=== PATIENT | female | born 1970 | race Caucasian/White ===

== ENCOUNTER → 2021-12-25 | Outpatient (CLI) | payer OTHER ==
--- NOTE | 2021-12-25 12:04 | USB ---
Reason for Exam: Additional evaluation requested from abnormal screening. Last screening mammogram was performed less than 1 month ago. Patient History: Menarche at age 14. First Full-Term at age 32. Late child-bearing (after 32). Left ovary removed at age 34. Patient has history of breast feeding. Hormonal Contraceptives for 1 year from age 22 until age 23. Risk Values: Lala 5 year model risk: 1.3%. NCI Lifetime model risk: 12.3%. Film Views: 3D and 2D Synthesized Right spot compression CC views were taken. 3D and 2D Synthesized Right LM views were taken. 3D and 2D Synthesized Right CCRM views were taken. Prior Study Comparison: 07/02/2017 Bilateral Screening Mammogram, [facility]. 12/17/2021 Bilateral MG screening mammo w CAD, [facility]. Tissue Density: Right: There are scattered fibroglandular densities. Findings: Analyzed By CAD. Mammogram Subtle isodense clustered nodularity approximately 3:00 position persists on additional views. Aggregate dimension of 9 mm. Technique: Method: Targeted. Findings: The upper inner quadrant of the left breast, the axilla of the left breast and the retroareolar of the left breast were scanned. Finding 1: Clustered microcysts. Laterality: Right. Size 12 x 4 x 7 mm. 3 O'clock Quadrant: Upper inner. Depth: Middle. Targeted scanning right breast at the 2-3 o'clock position. There is a cyst cluster measuring up to 1.2 x 0.7 x 0.4 cm at the 3:00 position, 4 cm from the nipple, likely mammographic correlate. No other solid or cystic lesion is seen. Short interval follow-up mammogram recommended. Overall Assessment: Probably benign, BI-RAD 3 Assessment: MG 3D work up w/cad RT - Right: Probably benign, BI-RAD 3. US breast workup limited RT - Right: Probably benign, BI-RAD 3. Management: Diagnostic Mammogram of the right breast in 6 months. 1. A clinical breast exam by your physician is recommended on an annual basis and results should be correlated with mammographic findings. Also, patient should continue monthly self breast exams. 2. This exam should not preclude additional follow-up of suspicious palpable abnormalities. Results were given to the patient verbally at the time of exam. Electronically signed and approved by: Ran Hannon M.D. Radiologist
== END | disposition home or self-care (01) ==
LOC: RADMAMWWP 10:13
PROVIDERS: ATTEND Obstetrics & Gynecology
DX: R92.8 Other abnormal and inconclusive findings on diagnostic imaging of breast (principal)
CPT/HCPCS: 77061; 77065

== ENCOUNTER → 2023-12-25 | Outpatient (CLI) | payer OTHER ==
--- NOTE | 2023-12-25 20:26 | MM ---
Reason for Exam: Screening (asymptomatic). Last mammogram was performed 2 year(s) and 0 month(s) ago. Patient History: Menarche at age 14. First Full-Term at age 32. Late child-bearing (after 32). Left ovary removed at age 34. Patient has history of breast feeding. Hormonal Contraceptives for 1 year from age 22 until age 23. Risk Values: Lala 5 year model risk: 1.4%. NCI Lifetime model risk: 12.0%. Prior Study Comparison: 07/02/2017 Bilateral Screening Mammogram, [facility]. 12/17/2021 Bilateral MG screening mammo w CAD, [facility]. 12/25/2021 Right MG 3D work up w/cad RT, [facility]. Tissue Density: There are scattered areas of fibroglandular density. Findings: Analyzed By CAD. There is no suspicious group of microcalcifications or new suspicious mass in either breast. Overall Assessment: Negative, BI-RAD 1 Management: Screening Mammogram of both breasts in 1 year. . Patient should continue monthly self-breast exams. A clinical breast exam by your physician is recommended on an annual basis. This exam should not preclude additional follow-up of suspicious palpable abnormalities. Note on Lala scores and lifetime risk: 1. A Lala score greater than 3% is considered moderate risk. If this is the case, consider specialist referral to assess eligibility for a risk reducing agent. 2. If overall lifetime risk for the development of breast cancer is 20% or higher, the patient may qualify for future screening with alternating mammogram and breast MRI. Electronically signed and approved by: Ran Hannon M.D. Radiologist
== END | disposition home or self-care (01) ==
LOC: RADMAMWWP 09:24
PROVIDERS: ATTEND Internal Medicine
DX: Z12.31 Encounter for screening mammogram for malignant neoplasm of breast (principal)
CPT/HCPCS: 77063; 77067

== ENCOUNTER → 2024-06-18 | Outpatient (CLI) | payer OTHER ==
--- NOTE | 2024-06-18 11:10 | XR ---
EXAMINATION TYPE: XR chest 2V DATE OF EXAM: 06/18/2024 10:46 AM COMPARISON: None CLINICAL INDICATION: Female, 54 years old with history of R05.9Cough R50.9 Fever; [facility] TECHNIQUE: XR chest 2V Frontal and lateral views of the chest. FINDINGS: Lungs/Pleura: Airspace opacities project over the left perihilar region/lower left lung. There is no evidence of pleural effusion, focal consolidation, or pneumothorax. Pulmonary vascularity: Unremarkable. Heart/mediastinum: Cardiomediastinal silhouette is unremarkable. Musculoskeletal: No acute osseous pathology. Other findings: None Lines/Tubes: IMPRESSION: Left lower lobe pneumonia. [facility], , 06/18/2024 11:07 AM
== END | disposition home or self-care (01) ==
LOC: RADXRMAIN 10:35
PROVIDERS: ATTEND Internal Medicine
DX: J18.9 Pneumonia, unspecified organism (principal); R05.9 Cough, unspecified; R50.9 Fever, unspecified
CPT/HCPCS: 71046

== ENCOUNTER 2024-06-20 15:19 | Inpatient (IN) | payer OTHER ==
[2024-06-20] MEDS ORDERED: PNEUMONIA PROTOCOL UTILIZED 1 EACH MISC PO PRN (16:17)
[2024-06-20] MEDS: IPRATROPIUM-ALBUTEROL 3 ML NEB INHALATION STA (16:56)
[2024-06-20 17:06] LABS: Basophils % (A) 0 %; Eosinophils % (A) 0 %; HCT 37.9 % (34.0-46.0); HGB 12.7 gm/dL (11.4-16.0); Lymphocytes # (A) 0.6 k/uL (1.0-4.8); Lymphocytes % (A) 12 %; MCH 30.9 pg (25.0-35.0); MCHC 33.5 g/dL (31.0-37.0); MCV 92.1 fL (80.0-100.0); Mean Platelet Volume 7.5; Monocytes # (A) 0.3 k/uL (0-1.0); Monocytes % (A) 6 %; Neutrophils % (A) 80 %; Platelet Count 185 k/uL (150-450); RBC 4.12 m/uL (3.80-5.40); RDW 12.3 % (11.5-15.5)
--- NOTE | 2024-06-20 17:07 | ED ---
SOB HPI - General Chief Complaint: Shortness of Breath Stated Complaint: Fever,Cough,Weakness Time Seen by Provider: 06/20/24 16:00 Source: patient Mode of arrival: ambulatory Limitations: no limitations - History of Present Illness Initial Comments: 54-year-old female presents to the emergency department with shortness of breath. Patient states for the past 10 days she has been weak, coughing with a fever. She did see her primary care doctor on . Chest x-ray was done. Patient was started on cefdinir. She has been taking the medications without any improvement. She denies history of asthma or COPD. She has not a smoker. She has been taking Robitussin without improvement in the cough. Denies chest pain. No history of cardiac disease. Taking Tylenol for the fevers. No use of any inhalers. No abdominal pain, no nausea, vomiting or diarrhea. No other alleviating, further pertain or modifying factors - Related Data Home Medications Medication Instructions Recorded Confirmed guaiFENesin SYRUP 100MG/5ML 200 mg PO Q6H PRN 06/20/24 06/20/24 [Robitussin] Allergies Allergy/AdvReac Type Severity Reaction Status Date / Time No Known Allergies Allergy Verified 06/20/24 17:27 Review of Systems ROS Statement: Those systems with pertinent positive or pertinent negative responses have been documented in the HPI. ROS Other: All systems not noted in ROS Statement are negative. Past Medical History Past Medical History: No Reported History History of Any Multi-Drug Resistant Organisms: None Reported Past Surgical History: Section Past Psychological History: No Psychological Hx Reported Smoking Status: Never smoker Past Alcohol Use History: None Reported Past Drug Use History: None Reported - Past Family History Mother Family Medical History: Deep Vein Thrombosis (DVT) General Exam Limitations: no limitations General appearance: alert, in no apparent distress Head exam: Present: atraumatic, normocephalic, normal inspection Eye exam: Present: normal appearance, PERRL, EOMI. Absent: scleral icterus, conjunctival injection, periorbital swelling ENT exam: Present: normal exam, mucous membranes moist Neck exam: Present: normal inspection. Absent: tenderness, meningismus, lymphadenopathy Respiratory exam: Present: wheezes. Absent: respiratory distress, rales, rhonchi, stridor Cardiovascular Exam: Present: normal rhythm, tachycardia, normal heart sounds. Absent: systolic murmur, diastolic murmur, rubs, gallop, clicks GI/Abdominal exam: Present: soft, normal bowel sounds. Absent: distended, tenderness, guarding, rebound, rigid Extremities exam: Present: normal inspection, full ROM, normal capillary refill. Absent: tenderness, pedal edema, joint swelling, calf tenderness Back exam: Present: normal inspection Neurological exam: Present: alert, oriented X3, CN II-XII intact Psychiatric exam: Present: normal affect, normal mood Skin exam: Present: warm, dry, intact, normal color. Absent: rash Course Vital Signs 06/20/24 06/20/24 06/20/24 15:41 16:58 17:08 Temperature 98.7 F Pulse Rate 109 H 72 75 Respiratory 18 Rate Blood Pressure 93/66 O2 Sat by Pulse 88 L Oximetry 06/20/24 17:43 Temperature Pulse Rate 93 Respiratory 22 Rate Blood Pressure 99/71 O2 Sat by Pulse 95 Oximetry Medical Decision Making - Medical Decision Making Was pt. sent in by a medical professional or institution (, PA, PREVENTIVE MEDICINE OFFICER, urgent care, hospital, or fdc...) When possible be specific @ -No Did you speak to anyone other than the patient for history (EMS, parent, family, police, friend...)? What history was obtained from this source @ -Spoke with for history Did you review nursing and triage notes (agree or disagree)? Why? @ -I reviewed and agree with nursing and triage notes Were old charts reviewed (outside hosp., previous admission, EMS record, old EKG, old radiological studies, urgent care reports/EKG's, fdc records)? Report findings @ -I reviewed outpatient chest x-ray that was performed which demonstrated pneumonia Differential Diagnosis (chest pain, altered mental status, abdominal pain women, abdominal pain men, vaginal bleeding, weakness, fever, dyspnea, syncope, headache, dizziness, GI bleed, back pain, seizure, CVA, palpatations, mental health, musculoskeletal)? @ -Differential Dyspnea: Coronary syndrome, arrhythmia, tamponade, asthma, COPD, pulmonary embolism, pneumonia, pneumothorax, pulmonary effusion, anaphylaxis, diabetic ketoacidosis, flailed chest, pulmonary contusion, diaphragmatic rupture, anemia, neuromuscular, this is not meant to be an all-inclusive list. EKG interpreted by me (3pts min.). @ -Yes and demonstrates sinus rhythm with rate of 92. VT interval 122. QRS 86. QTc of 381. No acute ST segment elevations or depressions X-rays interpreted by me (1pt min.). @ -None done CT interpreted by me (1pt min.). @ -None done U/S interpreted by me (1pt. min.). @ -None done What testing was considered but not performed or refused? (CT, X-rays, U/S, labs)? Why? @ -Repeat chest imaging was considered however patient just had outpatient x- ray which demonstrated pneumonia What meds were considered but not given or refused? Why? @ -None Did you discuss the management of the patient with other professionals (professionals i.e. , PA, PREVENTIVE MEDICINE OFFICER, lab, RT, psych nurse, social sciences professor, propulsion generator repairer, teacher, air support control officer, case operator)? Give summary @ -Spoke with Dr. Nuñez who will admit the patient Was smoking cessation discussed for >3mins.? @ -No Was critical care preformed (if so, how long)? @ -Yes, 30 minutes for management of hypoxic respiratory failure with pneumonia Were there social determinants of health that impacted care today? How? (Homelessness, low income, unemployed, alcoholism, drug addiction, transportation, low edu. Level, literacy, decrease access to med. care, half-way, rehab)? @ -No Was there de-escalation of care discussed even if they declined (Discuss DNR or withdrawal of care, Hospice)? DNR status @ -No What co-morbidities impacted this encounter? (DM, HTN, Smoking, COPD, CAD, Cancer, CVA, ARF, Chemo, Hep., AIDS, mental health diagnosis, sleep apnea, morbid obesity)? @ -None Was patient admitted / discharged? Hospital course, mention meds given and route, prescriptions, significant lab abnormalities, going to OR and other pertinent info. @ -Upon arrival patient seen and evaluated in room 27. Thorough history and physical exam was performed. IV access was established. Laboratory studies were conducted. I did review outpatient x-ray which demonstrates pneumonia. Patient is initiated on intravenous antibiotics. Laboratory studies are conducted. I did call and speak with Dr. oRa. Patient will be admitted for hypoxic respiratory failure and pneumonia. Pulmonology will be consulted. Further imaging to be performed as warranted by inpatient team. Patient does not demonstrate any signs of respiratory distress. She was admitted to the hospital in stable condition Undiagnosed new problem with uncertain prognosis? @ -No Drug Therapy requiring intensive monitoring for toxicity (Heparin, Nitro, Insulin, Cardizem)? @ -No Were any procedures done? @ -No Diagnosis/symptom? @ -Acute cough, acute hypoxic respiratory failure, acute pneumonia Acute, or Chronic, or Acute on Chronic? @ -Acute Uncomplicated (without systemic symptoms) or Complicated (systemic symptoms)? @ -Complicated Side effects of treatment? @ -No Exacerbation, Progression, or Severe Exacerbation? @ -No Poses a threat to life or bodily function? How? (Chest pain, [place], [place], pneumonia, PE, COPD, DKA, ARF, appy, cholecystitis, CVA, Diverticulitis, Homicidal, Suicidal, threat to staff... and all critical care pts) @ -Yes as patient is hypoxic - Lab Data Result diagrams: 06/28/24 06:32 06/28/24 06:32 Lab Results 06/20/24 06/20/24 06/20/24 Range/Units 16:32 16:32 16:32 WBC 5.0 (3.8-10.6) k/uL RBC 4.12 (3.80-5.40) m/uL Hgb 12.7 (11.4-16.0) gm/dL Hct 37.9 (34.0-46.0) % MCV 92.1 (80.0-100.0) fL MCH 30.9 (25.0-35.0) pg MCHC 33.5 (31.0-37.0) g/dL RDW 12.3 (11.5-15.5) % Plt Count 185 (150-450) k/uL Estimated Plt Count (Adequate) MPV 7.5 Immature Gran % (Auto) % Absolute Nucleated RBC % Neutrophils % 80 % Lymphocytes % 12 % Monocytes % 6 % Eosinophils % 0 % Basophils % 0 % Immature Gran # (0.00-0.04) X 10*3/uL Neutrophils # 4.0 (1.3-7.7) k/uL Lymphocytes # 0.6 L (1.0-4.8) k/uL Monocytes # 0.3 (0-1.0) k/uL Eosinophils # 0.0 (0-0.7) k/uL Basophils # 0.0 (0-0.2) k/uL NRBC/100 WBC Diff (0.00-0.01) X 10*3/uL Manual Slide Review RBC Morphology (Normal) Hypochromasia PT (10.0-12.5) sec INR (<1.2) APTT (22.0-30.0) sec Sodium 139 (137-145) mmol/L Potassium 4.4 (3.5-5.1) mmol/L Chloride 103 (98-107) mmol/L Carbon Dioxide 28 (22-30) mmol/L Anion Gap 8 mmol/L BUN 16 (7-17) mg/dL Creatinine 0.77 (0.52-1.04) mg/dL Est GFR (CKD-EPI) (>=60) Est GFR (CKD-EPI)AfAm >90 (>60 ml/min/1.73 sqM) Est GFR (CKD-EPI)NonAf 89 (>60 ml/min/1.73 sqM) BUN/Creatinine Ratio (12.00-20.00) Ratio Glucose 106 H (74-99) mg/dL Plasma Lactic Acid Adryan 1.0 (0.7-2.0) mmol/L Calcium 8.7 (8.4-10.2) mg/dL Total Bilirubin 0.7 (0.2-1.3) mg/dL AST 74 H (14-36) U/L ALT 108 H (4-34) U/L Alkaline Phosphatase 171 H (38-126) U/L Total Protein 6.9 (6.3-8.2) g/dL Albumin 3.8 (3.5-5.0) g/dL Globulin g/dL Albumin/Globulin Ratio Procalcitonin (0.02-0.50) ng/mL Influenza Type A (PCR) (Not Detectd) Influenza Type B (PCR) (Not Detectd) Urine Legionella Ag (Negative) RSV (PCR) (Not Detectd) SARS-CoV-2 (PCR) (Not Detectd) 06/20/24 06/21/24 06/21/24 Range/Units 22:39 04:23 04:39 WBC 4.96 (3.8-10.6) k/uL RBC 3.66 L (3.80-5.40) m/uL Hgb 11.1 L (11.4-16.0) gm/dL Hct 34.7 L (34.0-46.0) % MCV 94.8 (80.0-100.0) fL MCH 30.3 (25.0-35.0) pg MCHC 32.0 (31.0-37.0) g/dL RDW 12.7 (11.5-15.5) % Plt Count 137 L (150-450) k/uL Estimated Plt Count Decreased (Adequate) MPV 10.5 Immature Gran % (Auto) 1.00 % Absolute Nucleated RBC 0 % Neutrophils % 76.4 % Lymphocytes % 12.1 % Monocytes % 9.1 % Eosinophils % 1.0 % Basophils % 0.4 % Immature Gran # 0.05 H (0.00-0.04) X 10*3/uL Neutrophils # 3.79 (1.3-7.7) k/uL Lymphocytes # 0.60 L (1.0-4.8) k/uL Monocytes # 0.45 (0-1.0) k/uL Eosinophils # 0.05 (0-0.7) k/uL Basophils # 0.02 (0-0.2) k/uL NRBC/100 WBC Diff 0 (0.00-0.01) X 10*3/uL Manual Slide Review Morph Only RBC Morphology Normal (Normal) Hypochromasia PT (10.0-12.5) sec INR (<1.2) APTT (22.0-30.0) sec Sodium (137-145) mmol/L Potassium (3.5-5.1) mmol/L Chloride (98-107) mmol/L Carbon Dioxide (22-30) mmol/L Anion Gap mmol/L BUN (7-17) mg/dL Creatinine (0.52-1.04) mg/dL Est GFR (CKD-EPI) (>=60) Est GFR (CKD-EPI)AfAm (>60 ml/min/1.73 sqM) Est GFR (CKD-EPI)NonAf (>60 ml/min/1.73 sqM) BUN/Creatinine Ratio (12.00-20.00) Ratio Glucose (74-99) mg/dL Plasma Lactic Acid Adryan (0.7-2.0) mmol/L Calcium (8.4-10.2) mg/dL Total Bilirubin (0.2-1.3) mg/dL AST (14-36) U/L ALT (4-34) U/L Alkaline Phosphatase (38-126) U/L Total Protein (6.3-8.2) g/dL Albumin (3.5-5.0) g/dL Globulin g/dL Albumin/Globulin Ratio Procalcitonin (0.02-0.50) ng/mL Influenza Type A (PCR) Not Detected (Not Detectd) Influenza Type B (PCR) Not Detected (Not Detectd) Urine Legionella Ag Negative (Negative) RSV (PCR) Not Detected (Not Detectd) SARS-CoV-2 (PCR) Not Detected (Not Detectd) 06/21/24 06/21/24 06/21/24 Range/Units 04:39 04:39 09:52 WBC (3.8-10.6) k/uL RBC (3.80-5.40) m/uL Hgb (11.4-16.0) gm/dL Hct (34.0-46.0) % MCV (80.0-100.0) fL MCH (25.0-35.0) pg MCHC (31.0-37.0) g/dL RDW (11.5-15.5) % Plt Count (150-450) k/uL Estimated Plt Count (Adequate) MPV Immature Gran % (Auto) % Absolute Nucleated RBC % Neutrophils % % Lymphocytes % % Monocytes % % Eosinophils % % Basophils % % Immature Gran # (0.00-0.04) X 10*3/uL Neutrophils # (1.3-7.7) k/uL Lymphocytes # (1.0-4.8) k/uL Monocytes # (0-1.0) k/uL Eosinophils # (0-0.7) k/uL Basophils # (0-0.2) k/uL NRBC/100 WBC Diff (0.00-0.01) X 10*3/uL Manual Slide Review RBC Morphology (Normal) Hypochromasia PT (10.0-12.5) sec INR (<1.2) APTT (22.0-30.0) sec Sodium 144 141 (137-145) mmol/L Potassium 4.3 3.9 (3.5-5.1) mmol/L Chloride 110 H 112 H (98-107) mmol/L Carbon Dioxide 25.3 26 (22-30) mmol/L Anion Gap 8.70 3 mmol/L BUN 11.2 10 (7-17) mg/dL Creatinine 0.5 L 0.56 (0.52-1.04) mg/dL Est GFR (CKD-EPI) 113 (>=60) Est GFR (CKD-EPI)AfAm >90 (>60 ml/min/1.73 sqM) Est GFR (CKD-EPI)NonAf >90 (>60 ml/min/1.73 sqM) BUN/Creatinine Ratio 22.40 H (12.00-20.00) Ratio Glucose 107 92 (74-99) mg/dL Plasma Lactic Acid Adryan (0.7-2.0) mmol/L Calcium 8.1 L 7.9 L (8.4-10.2) mg/dL Total Bilirubin 0.4 (0.2-1.3) mg/dL AST 44 H (14-36) U/L ALT 73 H (4-34) U/L Alkaline Phosphatase 132 H (38-126) U/L Total Protein 5.4 L (6.3-8.2) g/dL Albumin 2.7 L (3.5-5.0) g/dL Globulin 2.7 g/dL Albumin/Globulin Ratio 1.0 Procalcitonin 0.14 (0.02-0.50) ng/mL Influenza Type A (PCR) (Not Detectd) Influenza Type B (PCR) (Not Detectd) Urine Legionella Ag (Negative) RSV (PCR) (Not Detectd) SARS-CoV-2 (PCR) (Not Detectd) 06/21/24 06/21/24 06/22/24 Range/Units 23:02 23:02 05:47 WBC 5.3 (3.8-10.6) k/uL RBC 3.60 L (3.80-5.40) m/uL Hgb 10.8 L (11.4-16.0) gm/dL Hct 33.0 L (34.0-46.0) % MCV 91.7 (80.0-100.0) fL MCH 29.9 (25.0-35.0) pg MCHC 32.6 (31.0-37.0) g/dL RDW 12.3 (11.5-15.5) % Plt Count 169 (150-450) k/uL Estimated Plt Count (Adequate) MPV 7.8 Immature Gran % (Auto) % Absolute Nucleated RBC % Neutrophils % 81 % Lymphocytes % 10 % Monocytes % 6 % Eosinophils % 2 % Basophils % 0 % Immature Gran # (0.00-0.04) X 10*3/uL Neutrophils # 4.3 (1.3-7.7) k/uL Lymphocytes # 0.5 L (1.0-4.8) k/uL Monocytes # 0.3 (0-1.0) k/uL Eosinophils # 0.1 (0-0.7) k/uL Basophils # 0.0 (0-0.2) k/uL NRBC/100 WBC Diff (0.00-0.01) X 10*3/uL Manual Slide Review RBC Morphology (Normal) Hypochromasia PT 10.6 (10.0-12.5) sec INR 1.0 (<1.2) APTT 31.0 H (22.0-30.0) sec Sodium 140 (137-145) mmol/L Potassium 3.3 L (3.5-5.1) mmol/L Chloride 105 (98-107) mmol/L Carbon Dioxide 30 (22-30) mmol/L Anion Gap 5 mmol/L BUN 4 L (7-17) mg/dL Creatinine 0.49 L (0.52-1.04) mg/dL Est GFR (CKD-EPI) (>=60) Est GFR (CKD-EPI)AfAm >90 (>60 ml/min/1.73 sqM) Est GFR (CKD-EPI)NonAf >90 (>60 ml/min/1.73 sqM) BUN/Creatinine Ratio (12.00-20.00) Ratio Glucose 94 (74-99) mg/dL Plasma Lactic Acid Adryan (0.7-2.0) mmol/L Calcium 7.9 L (8.4-10.2) mg/dL Total Bilirubin 0.6 (0.2-1.3) mg/dL AST 36 (14-36) U/L ALT 60 H (4-34) U/L Alkaline Phosphatase 142 H (38-126) U/L Total Protein 5.4 L (6.3-8.2) g/dL Albumin 2.8 L (3.5-5.0) g/dL Globulin 2.6 g/dL Albumin/Globulin Ratio 1.1 Procalcitonin (0.02-0.50) ng/mL Influenza Type A (PCR) (Not Detectd) Influenza Type B (PCR) (Not Detectd) Urine Legionella Ag (Negative) RSV (PCR) (Not Detectd) SARS-CoV-2 (PCR) (Not Detectd) 06/22/24 06/22/24 Range/Units 05:47 05:47 WBC 4.9 (3.8-10.6) k/uL RBC 3.64 L (3.80-5.40) m/uL Hgb 10.8 L (11.4-16.0) gm/dL Hct 34.2 (34.0-46.0) % MCV 93.9 (80.0-100.0) fL MCH 29.5 (25.0-35.0) pg MCHC 31.5 (31.0-37.0) g/dL RDW 12.3 (11.5-15.5) % Plt Count 173 (150-450) k/uL Estimated Plt Count (Adequate) MPV 7.7 Immature Gran % (Auto) % Absolute Nucleated RBC % Neutrophils % 77 % Lymphocytes % 15 % Monocytes % 5 % Eosinophils % 2 % Basophils % 0 % Immature Gran # (0.00-0.04) X 10*3/uL Neutrophils # 3.7 (1.3-7.7) k/uL Lymphocytes # 0.7 L (1.0-4.8) k/uL Monocytes # 0.2 (0-1.0) k/uL Eosinophils # 0.1 (0-0.7) k/uL Basophils # 0.0 (0-0.2) k/uL NRBC/100 WBC Diff (0.00-0.01) X 10*3/uL Manual Slide Review RBC Morphology (Normal) Hypochromasia Slight PT (10.0-12.5) sec INR (<1.2) APTT 62.1 H (22.0-30.0) sec Sodium (137-145) mmol/L Potassium (3.5-5.1) mmol/L Chloride (98-107) mmol/L Carbon Dioxide (22-30) mmol/L Anion Gap mmol/L BUN (7-17) mg/dL Creatinine (0.52-1.04) mg/dL Est GFR (CKD-EPI) (>=60) Est GFR (CKD-EPI)AfAm (>60 ml/min/1.73 sqM) Est GFR (CKD-EPI)NonAf (>60 ml/min/1.73 sqM) BUN/Creatinine Ratio (12.00-20.00) Ratio Glucose (74-99) mg/dL Plasma Lactic Acid Adryan (0.7-2.0) mmol/L Calcium (8.4-10.2) mg/dL Total Bilirubin (0.2-1.3) mg/dL AST (14-36) U/L ALT (4-34) U/L Alkaline Phosphatase (38-126) U/L Total Protein (6.3-8.2) g/dL Albumin (3.5-5.0) g/dL Globulin g/dL Albumin/Globulin Ratio Procalcitonin (0.02-0.50) ng/mL Influenza Type A (PCR) (Not Detectd) Influenza Type B (PCR) (Not Detectd) Urine Legionella Ag (Negative) RSV (PCR) (Not Detectd) SARS-CoV-2 (PCR) (Not Detectd) Disposition Clinical Impression: CAP (community acquired pneumonia), Hypoxia Disposition: ADMITTED IP TO THIS [facility] Condition: Stable Is patient prescribed a controlled substance at d/c from ED?: No Time of Disposition: 17:31 Decision to Admit Reason: Admit from EC Decision Date: 06/20/24 Decision Time: 17:31
[2024-06-20] MEDS: SODIUM CHLORIDE 0.9% 500 ML 500 ML IV SCH (17:17)
[2024-06-20] MEDS: IBUPROFEN 600 MG TAB PO STA (17:18)
[2024-06-20 17:22] LABS: ALT 108 U/L (4-34); AST 74 U/L (14-36); African American GFR (CKD) >90 (>60 ml/min/1.73 sqM); Albumin 3.8 g/dL (3.5-5.0); Alkaline Phosphatase 171 U/L (38-126); Anion Gap 8 mmol/L; Blood Urea Nitrogen 16 mg/dL (7-17); Calcium 8.7 mg/dL (8.4-10.2); Carbon Dioxide 28 mmol/L (22-30); Chloride 103 mmol/L (98-107); Glucose 106 mg/dL (74-99); Non-African American GFR(CKD) 89 (>60 ml/min/1.73 sqM); Potassium 4.4 mmol/L (3.5-5.1); Sodium 139 mmol/L (137-145); Total Bilirubin 0.7 mg/dL (0.2-1.3); Total Protein 6.9 g/dL (6.3-8.2)
[2024-06-20] MEDS ORDERED: NALOXONE 0.4 MG/ML 1 ML VIAL IV PRN (17:31)
[2024-06-20] MEDS: AZITHROMYCIN 500 MG in SODIUM CHLORIDE 0.9% 250 ML IVPB STA (18:06)
[2024-06-20] MEDS: SODIUM CHLORIDE 0.9% 1,000 ML IV SCH (19:07)
[2024-06-20] MEDS: guaiFENesin SYRUP 100MG/5ML 200 MG/10 ML CUP PO PRN (19:50)
--- NOTE | 2024-06-21 00:45 | XR ---
EXAMINATION TYPE: XR chest 1V portable DATE OF EXAM: 06/21/2024 CLINICAL HISTORY: Left hilar density. TECHNIQUE: Single AP portable frontal upright view of the chest is obtained. COMPARISON: Chest x-ray 3 days earlier FINDINGS: There is persistent dextroconvex scoliosis centered in the mid to lower thoracic spine. Ca rdiac silhouette size is stable and within normal limits. Persistent masslike opacity left hilar dunia on with increasing opacity extending into the left lung base. Right lung remains clear. IMPRESSION: Worsening left lower lung acute infiltrate and/or atelectasis. Persistent left hilar mass like opacity. Underlying mass or neoplasm not excluded. Consider further investigation with contrast- enhanced chest CT. [facility], , 06/21/2024 12:42 AM
--- NOTE | 2024-06-21 03:10 | P.CNPUL ---
History of Present Illness Consult date: 06/21/24 Requesting physician: Anne Yeh Reason for consult: pneumonia Chief complaint: Cough, subjective fevers History of present illness: Patient is a 54-year-old white female without any significant past medical history. Her primary care provider is Dr. Roa. Chief complaint is a nonproductive congested cough and associated subjective fevers starting approximately 1 week ago. On Friday, she did go to her primary care provider and diagnosed with pneumonia. She was prescribed an oral antibiotic. Despite treatment, no improvement, and patient came to the emergency department yesterday evening. She was admitted with IV antibiotics in the form of azithromycin and Rocephin. No repeat chest x-ray has yet been performed. She is currently resting comfortably on the medical surgical unit. She is on 3 L/min nasal cannula. She is in no acute respiratory distress. She denies any significant history of chronic pulmonary disease. Does not take any inhalers at home. Denies history of tobacco use. She states that her cough is congested without sputum production. Does have associated left-sided back pain with coughing and deep breathing that developed over same time from. Denies hemoptysis. Denies history of cancer. Denies weight loss. No measured fevers while inpatient. No leukocytosis. Denies nausea, vomiting, diarrhea. She is tolerating oral intake. Also receiving normal saline at 130 mL/h. CBC: WBC count 5, hemoglobin 12.7, hematocrit 37.9, platelets 185. CMP: Sodium 139, potassium 4.4, chloride 103, serum bicarb 28, BUN 16, creatinine 0.77, glucose 106. Lactic 1. AST 74, ALT 108, ALP 171. Current vitals: Temperature 97.9 F, heart rate 93 bpm, blood pressure 99/71, respiratory rate 22 bpm, SpO2 95% on 3 L/min nasal cannula. Nontoxic appearance. Review of Systems Constitutional: Reports chills, Reports fatigue, Reports fever, Reports malaise, Reports poor appetite, Denies weight gain, Denies weight loss Ears, nose, mouth and throat: Denies headache, Denies nasal congestion, Denies nasal discharge, Denies post-nasal drip, Denies sinus pressure, Denies sore throat Cardiovascular: Denies chest pain, Denies irregular heart beat, Denies leg edema, Denies orthopnea, Denies palpitations, Denies paroxysmal nocturnal dyspnea Respiratory: Reports congestion, Reports cough, Reports pleurisy, Denies cough with sputum, Denies home oxygen, Denies wheezing Gastrointestinal: Reports loss of appetite, Denies diarrhea, Denies nausea, Denies vomiting Genitourinary: Denies dysuria, Denies hematuria, Denies urinary frequency Musculoskeletal: Denies limitation of motion Neurological: Denies headaches Past Medical History Past Medical History: No Reported History History of Any Multi-Drug Resistant Organisms: None Reported Past Surgical History: Section Additional Past Surgical History / Comment(s): x3 Past Anesthesia/Blood Transfusion Reactions: No Reported Reaction Past Psychological History: No Psychological Hx Reported Smoking Status: Never smoker Past Alcohol Use History: None Reported Past Drug Use History: None Reported - Past Family History Mother Family Medical History: Deep Vein Thrombosis (DVT) Medications and Allergies Home Medications Medication Instructions Recorded Confirmed Type Cefdinir [Omnicef] 300 mg PO Q12HR 06/20/24 06/20/24 History guaiFENesin SYRUP 100MG/5ML 200 mg PO Q6H PRN 06/20/24 06/20/24 History [Robitussin] Allergies Allergy/AdvReac Type Severity Reaction Status Date / Time No Known Allergies Allergy Verified 06/20/24 17:27 Physical Exam Vitals: Vital Signs Temp Pulse Pulse Resp BP BP Pulse Ox 06/20/24 20:40 97.9 F 95 18 88/55 92 L 06/20/24 17:43 93 22 99/71 95 06/20/24 17:08 75 06/20/24 16:58 72 06/20/24 15:41 98.7 F 109 H 18 93/66 88 L Intake and Output 06/20/24 06/20/24 06/21/24 14:59 22:59 06:59 Other: Weight 72.575 kg GENERAL EXAM: Alert, 55-year-old white female, comfortable in no apparent distress. HEAD: Normocephalic and atraumatic EYES: Normal reaction of pupils, equal size. NOSE: Clear with pink turbinates. THROAT: No erythema or exudates. NECK: No masses, no JVD. CHEST: No chest wall deformity. LUNGS: Equal air entry with minimal bibasilar crackles, left sided dullness. On 3 L/min nasal cannula no conversational dyspnea or accessory muscle use.. CVS: S1 and S2 normal with no audible murmur, regular rhythm. No extra heart sounds ABDOMEN: No hepatosplenomegaly, active bowel sounds, no guarding or rigidity. SPINE: No scoliosis or deformity SKIN: No rashes CENTRAL NERVOUS SYSTEM: No focal deficits, tone is normal in all 4 extremities. EXTREMITIES: There is no peripheral edema, clubbing, or cyanosis. Peripheral pulses are intact. Results - Laboratory Findings CBC and BMP: 06/21/24 04:39 06/21/24 09:52 Abnormal lab findings: Abnormal Labs 06/20/24 06/20/24 16:32 16:32 Lymphocytes # 0.6 L Glucose 106 H AST 74 H ALT 108 H Alkaline Phosphatase 171 H - Diagnostic Findings Chest x-ray: image reviewed Assessment and Plan Assessment: Acute hypoxemic respiratory failure, on 3 L/min nasal cannula Left hilar density, consistent with community-acquired pneumonia, given patient's symptoms. Mild transaminitis, undetermined significance Plan: Patient's medications, labs, and outpatient chest x-ray reviewed Continue supplemental oxygen to maintain oxygen saturation of 92% or greater Continue empiric antibiotics for community-acquired pneumonia in the form of azithromycin and Rocephin Repeat chest x-ray Underlying malignancy is not excluded Check procalcitonin level May consider follow up Chest CT with contrast if no improvement We will continue to follow I have personally seen and examined the patient, performed the documentation and the assessment and plan as written. Number of minutes spent on the visit:20 This is a joint evaluation that was done along with the nurse practitioner. His evaluation was done more than 30 minutes. The patient is currently admitted for hypoxic respiratory failure and shortness of breath along with symptoms of nonproductive cough and congestion and fever of 1 week duration. The patient is currently on 4 L of oxygen by nasal cannula with a pulse ox of 92%. The patient is covered with a combination of Rocephin and Zithromax. IV fluids are normal saline at rate of 130 cc an hour. The white cell count is 4.9, electrolytes are all within normal limits, the patient has abnormal LFTs Chest x-ray at time of admission showed worsening left lower lung infiltrate and a left hilar masslike opacity and elevation of the left hemidiaphragm. The viral screen is negative. Legionella urine antigen is negative. Procalcitonin level is at 0.14. Based on all this, we will continue same antibiotic coverage and will proceed with a CAT scan of the chest. Will continue to follow. Time with Patient: Greater than 30
[2024-06-21] MEDS: IBUPROFEN 400 MG TAB PO PRN (04:30)
[2024-06-21] MEDS: guaiFENesin-DM 100-10MG/5ML 10 ML CUP PO PRN (06:24)
[2024-06-21] MEDS: AZITHROMYCIN 500 MG TAB PO SCH (09:35)
--- NOTE | 2024-06-21 09:52 | P.HPIM ---
History of Present Illness H&P Date: 06/21/24 Jayleen Robbins, is a 54-year-old female who presented to [facility] emergency room with a chief complaint of cough and shortness of breath, patient presented to the office for 3 days before with similar symptoms at that time testing for influenza and COVID was negative, she was given an order for a chest x-ray which came back positive for left lower lobe infiltrate, she was given a course of cefdinir 300 mg twice daily p.o., however her condition continued to worsen and she decided to come to emergency room. She was evaluated in the emergency room vital examination on presentation revealed a temperature of 98.7 pulse 109 respiration 18 blood pressure 93/66 pulse ox 88% on room air Laboratory data revealed a white blood count of 5.0 hemoglobin 12.7 platelet count 185 AST 74 ALT 108 alkaline phosphatase 171, influenza A and B PCR RSV PCR and COVID-19 PCR were all negative Testing in the emergency room revealed, chest x-ray done in the emergency room revealed worsening left lower lobe infiltrate, underlying mass or neoplasm not excluded. Patient was started on IV ceftriaxone and IV Zithromax and oxygen supplements, and was admitted to medical floor, pulmonary consultation was requested Past Medical History Past Medical History: No Reported History History of Any Multi-Drug Resistant Organisms: None Reported Past Surgical History: Section Additional Past Surgical History / Comment(s): x3 Past Anesthesia/Blood Transfusion Reactions: No Reported Reaction Past Psychological History: No Psychological Hx Reported Smoking Status: Never smoker Past Alcohol Use History: None Reported Past Drug Use History: None Reported - Past Family History Mother Family Medical History: Deep Vein Thrombosis (DVT) Medications and Allergies Home Medications Medication Instructions Recorded Confirmed Type Cefdinir [Omnicef] 300 mg PO Q12HR 06/20/24 06/20/24 History guaiFENesin SYRUP 100MG/5ML 200 mg PO Q6H PRN 06/20/24 06/20/24 History [Robitussin] Allergies Allergy/AdvReac Type Severity Reaction Status Date / Time No Known Allergies Allergy Verified 06/20/24 17:27 Physical Exam Vitals: Vital Signs Temp Pulse Pulse Resp BP BP Pulse Ox 06/21/24 09:25 93 L 06/21/24 07:35 98.9 F 95 16 98/67 91 L 06/21/24 00:52 98.4 F 93 18 98/65 90 L 06/20/24 20:40 97.9 F 95 18 88/55 92 L 06/20/24 17:43 93 22 99/71 95 06/20/24 17:08 75 06/20/24 16:58 72 06/20/24 15:41 98.7 F 109 H 18 93/66 88 L Intake and Output 06/20/24 06/21/24 06/21/24 22:59 06:59 14:59 Other: # Voids 2 Weight 72.575 kg In general patient is alert and oriented x 3 in no distress HEENT head normocephalic and atraumatic Neck is supple no JVD no goiter no lymphadenopathy no carotid bruit Chest examination reveals a scattered crackles bilaterally worse on the left no wheezing Cardiac exam reveals regular heart sounds S1 and S2 no gallops no murmurs Abdomen is soft nontender no organomegaly with normal bowel sounds Extremity exam reveals no edema no cyanosis or clubbing Neurological examination reveals no gross focal deficits Results CBC & Chem 7: 06/20/24 16:32 06/20/24 16:32 Labs: Abnormal Lab Results - Last 24 Hours (Table) 06/20/24 06/20/24 Range/Units 16:32 16:32 Lymphocytes # 0.6 L (1.0-4.8) k/uL Glucose 106 H (74-99) mg/dL AST 74 H (14-36) U/L ALT 108 H (4-34) U/L Alkaline Phosphatase 171 H (38-126) U/L Thrombosis Risk Factor Assmnt - Choose All That Apply Any of the Below Risk Factors Present?: Yes Each Factor Represents 1 point: Age 41-60 years Other Risk Factors: Yes Each Risk Factor Represents 3 Points: Family history of DVT/PE Thrombosis Risk Factor Assessment Total Risk Factor Score: 4 Thrombosis Risk Factor Assessment Level: Moderate Risk Assessment and Plan Plan: Acute hypoxic respiratory failure Left lower lobe pneumonia, community-acquired Elevated liver enzymes At this time patient was seen and examined Home medications reviewed Pulmonary consultation requested Will continue with IV ceftriaxone and IV Zithromax For DVT prophylaxis subcu Lovenox Will check liver ultrasound for elevated liver enzymes If not improving will check CT scan of the chest Will follow closely
[2024-06-21 10:10] LABS: Blood Urea Nitrogen 11.2 mg/dL (9.0-27.0); Calcium 8.1 mg/dL (8.7-10.3); Carbon Dioxide 25.3 mmol/L (21.6-31.8); Chloride 110 mmol/L (96-109); Glucose 107 mg/dL (70-110); Potassium 4.3 mmol/L (3.5-5.5); Sodium 144 mmol/L (135-145)
[2024-06-21 10:31] LABS: ALT 73 U/L (4-34); AST 44 U/L (14-36); African American GFR (CKD) >90 (>60 ml/min/1.73 sqM); Albumin 2.7 g/dL (3.5-5.0); Alkaline Phosphatase 132 U/L (38-126); Anion Gap 3 mmol/L; Blood Urea Nitrogen 10 mg/dL (7-17); Calcium 7.9 mg/dL (8.4-10.2); Carbon Dioxide 26 mmol/L (22-30); Chloride 112 mmol/L (98-107); Globulin 2.7 g/dL; Glucose 92 mg/dL (74-99); Non-African American GFR(CKD) >90 (>60 ml/min/1.73 sqM); Potassium 3.9 mmol/L (3.5-5.1); Sodium 141 mmol/L (137-145); Total Bilirubin 0.4 mg/dL (0.2-1.3); Total Protein 5.4 g/dL (6.3-8.2)
[2024-06-21 10:50] LABS: Basophils # (A) 0.02 X 10*3/uL (0.00-0.10); Basophils % (A) 0.4 %; Eosinophils # (A) 0.05 X 10*3/uL (0.04-0.35); HCT 34.7 % (37.2-46.3); HGB 11.1 g/dL (12.0-15.0); Lymphocytes % (A) 12.1 %; MCH 30.3 pg (27.0-32.0); MCV 94.8 FL (80.0-97.0); Mean Platelet Volume 10.5 FL (9.5-12.2); Monocytes # (A) 0.45 X 10*3/uL (0.20-1.00); Monocytes % (A) 9.1 %; NRBC Per 100 WBC 0 X 10*3/uL (0.00-0.01); Neutrophils # (A) 3.79 X 10*3/uL (1.80-7.70); Neutrophils % (A) 76.4 %; Platelet Count 137 X 10*3/uL (140-440); RBC 3.66 X 10*6/uL (4.10-5.20); RBC Morphology Normal (Normal); RDW 12.7 % (11.5-14.5); WBC 4.96 X 10*3/uL (4.50-10.00)
[2024-06-21] MEDS: PANTOPRAZOLE 40 MG TABLET PO SCH (11:15)
[2024-06-21] MEDS: ENOXAPARIN 40 MG/0.4 ML SYRINGE SQ SCH (11:15)
[2024-06-21] MEDS: ACETAMINOPHEN TAB 325 MG TAB PO PRN (14:54)
--- NOTE | 2024-06-21 15:38 | US ---
EXAMINATION TYPE: US liver DATE OF EXAM: 06/21/2024 COMPARISON: NONE CLINICAL INDICATION: Female, 54 years old with history of Elevated liver enzymes; Patient denies any other signs, symptoms, or relevant history TECHNIQUE: Grayscale and color Doppler imaging of the right upper quadrant was performed. FINDINGS: EXAM MEASUREMENTS: Liver Length: 18.8 cm Gallbladder Wall: 0.2 cm CBD: 0.5 cm Right Kidney: 11.9 x 4.6 x 5.6 cm DISPATCHER REFINERY NOTES:Patient not able to take breath in and hold Pancreas: wnl Liver: wnl Gallbladder: Echogenic foci with posterior shadowing = 2.7 x 1.6 x 1.8 cm Evidence for sonographic Ortega's sign: No CBD: wnl Right Kidney: wnl IMPRESSION: 1. Cholelithiasis. [facility], , 06/21/2024 3:36 PM
[2024-06-21] MEDS ORDERED: RX INFO: IV CONTRAST WAS GIVEN 1 EACH MISC MISCELLANE PRN (20:10)
--- NOTE | 2024-06-21 22:39 | CT ---
EXAMINATION TYPE: CT chest w con DATE OF EXAM: 06/21/2024 COMPARISON: Chest x-ray one day earlier HISTORY: Left hilar masslike opacity, abnormal x-ray CT DLP: 329.2 mGycm. Automated Exposure Control for Dose Reduction was Utilized. TECHNIQUE: CT scan of the thorax is performed following with IV Contrast, patient injected with 100m l mL of Isovue 300. FINDINGS: LUNGS: There is consolidation with air bronchograms and surrounding groundglass opacity affecting a s ignificant portion of the left lower lobe. No obvious central obstructing mass. There is a smaller de gree of dependent consolidation/atelectasis in the lingula axial image 40. Some patchy groundglass op acities in the right middle and right lower lobe at level of diaphragm are seen. There is additional linear scarring and/or atelectasis in the posterior right lower lobe superior to this. Tiny left side d pleural effusion is seen medially. No pneumothorax is evident. MEDIASTINUM: There bilateral acute pulmonary emboli with significant embolism in the right lower lobe axial image 28 and large embolism also in the left lower lobe axial image 26. No cardiomegaly or pe ricardial effusion. The RV/LV ratio is less than 1.0 but there is left ventricular dilatation noted. OTHER: Internal large 2.2 cm round gallstone in gallbladder coronal image 42. Scoliosis is present. IMPRESSION: 1. Significant bilateral acute pulmonary embolism. There is suspected mild right ventricular dilatati on. 2. Prominent consolidation with air bronchograms occupying significant portion of the left lower lobe having some surrounding groundglass opacity. Smaller degree of consolidation/atelectasis posterior l ingula. Patchy ground glass opacities in the right middle and lower lobe at level of diaphragm all co uld reflect acute infectious process. No obvious central obstructing mass or neoplasm in the left low er lobe. Critical results communicated to patient's nurse Adrianna by breed to wean production technician at time of dictation. [facility], , 06/21/2024 10:36 PM
[2024-06-21] MEDS ORDERED: HEPARIN SODIUM 1,000 UN/ML (10ML VL) IV PRN (22:46)
[2024-06-21] MEDS: HEPARIN SODIUM 1,000 UN/ML (10ML VL) IV ONE (23:12)
[2024-06-21 23:14] LABS: Basophils % (A) 0 %; Eosinophils # (A) 0.1 k/uL (0-0.7); Eosinophils % (A) 2 %; HGB 10.8 gm/dL (11.4-16.0); Lymphocytes # (A) 0.5 k/uL (1.0-4.8); Lymphocytes % (A) 10 %; MCH 29.9 pg (25.0-35.0); MCHC 32.6 g/dL (31.0-37.0); MCV 91.7 fL (80.0-100.0); Mean Platelet Volume 7.8; Monocytes # (A) 0.3 k/uL (0-1.0); Monocytes % (A) 6 %; Neutrophils # (A) 4.3 k/uL (1.3-7.7); Neutrophils % (A) 81 %; Platelet Count 169 k/uL (150-450); RDW 12.3 % (11.5-15.5); WBC 5.3 k/uL (3.8-10.6)
[2024-06-21] MEDS: HEPARIN SOD,PORK IN 0.45% NACL 25,000 UNIT in 0.45% NACL 1 250ML.BAG IV SCH (23:36)
[2024-06-21 23:37] LABS: Prothrombin Time 10.6 sec (10.0-12.5)
--- NOTE | 2024-06-22 00:35 | US ---
EXAMINATION TYPE: US venous doppler duplex LE BI DATE OF EXAM: 06/22/2024 12:21 AM COMPARISON: Left leg 05/26/17 CLINICAL INDICATION: Female, 54 years old with history of rule out DVT bilaterally; Patient states le ft leg pain behind knee. No hx DVT, TECHNIQUE: The lower extremity deep venous system is examined utilizing real time linear array sonog praveena with graded compression, color doppler sonography, and spectral doppler. SIDE PERFORMED: Bilateral FINDINGS: VESSELS IMAGED: Common Femoral Vein Deep Femoral Vein Greater Saphenous Vein * Femoral Vein Popliteal Vein Small Saphenous Vein * Proximal Calf Veins (* superficial vessels) Right Leg: Negative for DVT, Color Doppler imaging shows patency of the vessels. Spectral waveforms are within normal limits. Left Leg: Thrombus seen from the distal femoral vein throughout the calf veins with no color doppler flow, IMPRESSION: Acute DVT in the left lower extremity is now present. [facility], , 06/22/2024 12:33 AM
[2024-06-22] MEDS: IPRATROPIUM-ALBUTEROL 3 ML NEB INHALATION PRN (01:45)
[2024-06-22 07:32] LABS: Basophils % (A) 0 %; Eosinophils # (A) 0.1 k/uL (0-0.7); Eosinophils % (A) 2 %; HCT 34.2 % (34.0-46.0); HGB 10.8 gm/dL (11.4-16.0); Hypochromasia Slight; Lymphocytes # (A) 0.7 k/uL (1.0-4.8); Lymphocytes % (A) 15 %; MCH 29.5 pg (25.0-35.0); MCHC 31.5 g/dL (31.0-37.0); MCV 93.9 fL (80.0-100.0); Mean Platelet Volume 7.7; Monocytes # (A) 0.2 k/uL (0-1.0); Monocytes % (A) 5 %; Neutrophils # (A) 3.7 k/uL (1.3-7.7); Neutrophils % (A) 77 %; Platelet Count 173 k/uL (150-450); RBC 3.64 m/uL (3.80-5.40); RDW 12.3 % (11.5-15.5); WBC 4.9 k/uL (3.8-10.6)
[2024-06-22 07:33] LABS: ALT 60 U/L (4-34); AST 36 U/L (14-36); African American GFR (CKD) >90 (>60 ml/min/1.73 sqM); Albumin 2.8 g/dL (3.5-5.0); Albumin/Globulin Ratio 1.1; Alkaline Phosphatase 142 U/L (38-126); Anion Gap 5 mmol/L; Blood Urea Nitrogen 4 mg/dL (7-17); Calcium 7.9 mg/dL (8.4-10.2); Carbon Dioxide 30 mmol/L (22-30); Chloride 105 mmol/L (98-107); Globulin 2.6 g/dL; Glucose 94 mg/dL (74-99); Non-African American GFR(CKD) >90 (>60 ml/min/1.73 sqM); Potassium 3.3 mmol/L (3.5-5.1); Sodium 140 mmol/L (137-145); Total Bilirubin 0.6 mg/dL (0.2-1.3); Total Protein 5.4 g/dL (6.3-8.2)
[2024-06-22] MEDS: POTASSIUM CHLORIDE ER 20 MEQ TAB.ER PO STA (09:59)
[2024-06-22] MEDS: POTASSIUM CHLORIDE 10 MEQ in WATER FOR INJECTION 1 100ML.BAG IVPB STA (10:02)
--- NOTE | 2024-06-22 10:55 | P.PN ---
Subjective Progress Note Date: 06/22/24 Jayleen Robbins, is a 54-year-old female who presented to [facility] emergency room with a chief complaint of cough and shortness of breath, patient presented to the office for 3 days before with similar symptoms at that time testing for influenza and COVID was negative, she was given an order for a chest x-ray which came back positive for left lower lobe infiltrate, she was given a course of cefdinir 300 mg twice daily p.o., however her condition continued to worsen and she decided to come to emergency room. She was evaluated in the emergency room vital examination on presentation re vealed a temperature of 98.7 pulse 109 respiration 18 blood pressure 93/66 pulse ox 88% on room air Laboratory data revealed a white blood count of 5.0 hemoglobin 12.7 platelet count 185 AST 74 ALT 108 alkaline phosphatase 171, influenza A and B PCR RSV PCR and COVID-19 PCR were all negative Testing in the emergency room revealed, chest x-ray done in the emergency room revealed worsening left lower lobe infiltrate, underlying mass or neoplasm not excluded. Patient was started on IV ceftriaxone and IV Zithromax and oxygen supplements, and was admitted to medical floor, pulmonary consultation was requested On 06/22/2024 patient is alert and oriented x 3. Patient remains in the intensive care unit. Patient was positive for PE and DVT started on heparin drip. Per patient's patient's mother also has history of blood clot will consult hematology services. Patient remains short of breath. Patient denies chest pain. Patient denies nausea vomiting or diarrhea. Objective - Vital Signs Vital signs: Vital Signs Temp 98.9 F 06/22/24 08:00 Pulse 86 06/22/24 08:00 Resp 26 H 06/22/24 08:00 BP 107/73 06/22/24 08:00 Pulse Ox 94 L 06/22/24 09:25 FiO2 Intake & Output 06/21/24 06/22/24 06/22/24 18:59 06:59 18:59 Intake Total 780 Output Total 700 Balance 80 Weight 83.5 kg Intake: Intake, IV Titration 780 Amount Sodium Chloride 0.9% 1, 780 000 ml @ 130 mls/hr IV . Q7H42M [facility] Rx#:[id number] Output: Urine 700 Other: Voiding Method Toilet Bedside Commode Bedpan # Voids 1 - Exam In general patient is alert and oriented x 3 in no distress HEENT head normocephalic and atraumatic Neck is supple no JVD no goiter no lymphadenopathy no carotid bruit Chest examination reveals a scattered crackles bilaterally worse on the left no wheezing Cardiac exam reveals regular heart sounds S1 and S2 no gallops no murmurs Abdomen is soft nontender no organomegaly with normal bowel sounds Extremity exam reveals no edema no cyanosis or clubbing Neurological examination reveals no gross focal deficits - Labs CBC & Chem 7: 06/22/24 05:47 06/22/24 05:47 Labs: Abnormal Lab Results - Last 24 Hours (Table) 06/21/24 06/21/24 06/21/24 Range/Units 04:39 23:02 23:02 RBC 3.66 L 3.60 L (4.10-5.20) X 10*6/uL Hgb 11.1 L 10.8 L (12.0-15.0) g/dL Hct 34.7 L 33.0 L (37.2-46.3) % Plt Count 137 L (140-440) X 10*3/uL Immature Gran # 0.05 H (0.00-0.04) X 10*3/uL Lymphocytes # 0.60 L 0.5 L (0.90-5.00) X 10*3/uL APTT 31.0 H (22.0-30.0) sec Potassium (3.5-5.1) mmol/L BUN (7-17) mg/dL Creatinine (0.52-1.04) mg/dL Calcium (8.4-10.2) mg/dL ALT (4-34) U/L Alkaline Phosphatase (38-126) U/L Total Protein (6.3-8.2) g/dL Albumin (3.5-5.0) g/dL 06/22/24 06/22/24 06/22/24 Range/Units 05:47 05:47 05:47 RBC 3.64 L (4.10-5.20) X 10*6/uL Hgb 10.8 L (12.0-15.0) g/dL Hct (37.2-46.3) % Plt Count (140-440) X 10*3/uL Immature Gran # (0.00-0.04) X 10*3/uL Lymphocytes # 0.7 L (0.90-5.00) X 10*3/uL APTT 62.1 H (22.0-30.0) sec Potassium 3.3 L (3.5-5.1) mmol/L BUN 4 L (7-17) mg/dL Creatinine 0.49 L (0.52-1.04) mg/dL Calcium 7.9 L (8.4-10.2) mg/dL ALT 60 H (4-34) U/L Alkaline Phosphatase 142 H (38-126) U/L Total Protein 5.4 L (6.3-8.2) g/dL Albumin 2.8 L (3.5-5.0) g/dL Microbiology - Last 24 Hours (Table) 06/20/24 16:28 Blood Culture - Preliminary Blood Assessment and Plan Plan: Acute hypoxic respiratory failure Left lower lobe pneumonia, community-acquired Elevated liver enzymes Acute PE and DVT. Patient started on heparin drip. Patient does have a family history of blood clots will consult hematology services At this time patient was seen and examined Home medications reviewed Pulmonary consultation requested patient has been transferred to the intensive care unit Will continue with IV ceftriaxone and IV Zithromax For DVT prophylaxis subcu Lovenox Will check liver ultrasound for elevated liver enzymes
--- NOTE | 2024-06-22 10:59 | CA ---
Transthoracic Echo Report Name: Jayleen Robbins Age: 54 Gender: F : 1970 Exam Date: 06/22/2024 08:29 Exam Location: [facility] Ht (in): Wt (lb): Ordering Physician: Edgar Avalos Attending/Referring Phys: Sales Account Specialist Abeba Ledesma RDCS Procedure CPT: Indications: Bilateral PE; RV strain? Cardiac Hx: Technical Quality: Fair Contrast 1: Total Dose (mL): Contrast 2: Total Dose (mL): MEASUREMENTS (Male / Female) Normal Values 2D ECHO LV Diastolic Diameter PLAX 5.2 cm 4.2 - 5.9 / 3.9 - 5.3 cm LV Systolic Diameter PLAX 4.1 cm IVS Diastolic Thickness 0.9 cm 0.6 - 1.0 / 0.6 - 0.9 cm LVPW Diastolic Thickness 0.9 cm 0.6 - 1.0 / 0.6 - 0.9 cm LV Relative Wall Thickness 0.3 RV Internal Dim ED PLAX 1.7 cm LA Systolic Diameter LX 2.6 cm 3.0 - 4.0 / 2.7 - 3.8 cm LV Diastolic Volume MOD BP 63.2 cm??? 67 - 155 / 56 - 104 cm??? LV Systolic Volume MOD BP 25.7 cm??? 22 - 58 / 19 - 49 cm??? LV Ejection Fraction MOD BP 59.3 % >= 55 % LV Diastolic Volume MOD 4C 69.4 cm??? LV Systolic Volume MOD 4C 30.0 cm??? LV Ejection Fraction MOD 4C 56.8 % LV Diastolic Length 4C 7.6 cm LV Systolic Length 4C 5.2 cm LV Diastolic Volume MOD 2C 55.3 cm??? LV Systolic Volume MOD 2C 24.8 cm??? LV Ejection Fraction MOD 2C 55.1 % LV Diastolic Length 2C 7.2 cm LV Systolic Length 2C 5.5 cm LA Volume 61.5 cm??? 18 - 58 / 22 - 52 cm??? M-MODE Aortic Root Diameter MM 2.9 cm LA Systolic Diameter MM 2.5 cm LA Ao Ratio MM 0.9 AV Cusp Separation MM 1.8 cm DOPPLER AV Peak Velocity 166.7 cm/s AV Peak Gradient 11.1 mmHg MV Area PHT 2.8 cm??? Mitral E Point Velocity 71.8 cm/s Mitral A Point Velocity 68.6 cm/s Mitral E to A Ratio 1.0 MV Deceleration Time 266.6 ms TR Peak Velocity 250.7 cm/s TR Peak Gradient 25.1 mmHg Right Ventricular Systolic Press 34.9 mmHg FINDINGS Left Ventricle Left ventricular ejection fraction is estimated at 50-55 %. Left ventricular cavity size normal. Left ventricular wall thickness normal. No obvious regional wall motion abnormalities. Left ventricular systolic function borderline normal Right Ventricle Normal right ventricular size. . Normal right ventricular global systolic function. Mild pulmonary hypertension. Right ventricular systolic pressure estimated at 35 mmHg. Right Atrium Normal right atrial size. Left Atrium Mildly increased left atrial volume. Mitral Valve Structurally normal mitral valve. Trace mitral regurgitation. No mitral stenosis. Aortic Valve Trileaflet aortic valve. No aortic valve stenosis or regurgitation. Tricuspid Valve Structurally normal tricuspid valve. Mild tricuspid regurgitation. No tricuspid stenosis. Pulmonic Valve Structurally normal pulmonic valve. No pulmonic stenosis. Pericardium Left pleural effusion. No pericardial effusion. Aorta Normal size aortic root and proximal ascending aorta. CONCLUSIONS 1. Left ventricular systolic function borderline normal 2. Normal right ventricular size and function with mild pulmonary hypertension 3. Mild tricuspid regurgitation Previewed by: Dr. Ashly Neville MD (Electronically Signed) Final Date: 22 June 2024 10:59
--- NOTE | 2024-06-22 11:42 | P.GSCN ---
History of Present Illness Consult date: 06/22/24 Reason for Consult: Bilateral PE, left leg DVT Requesting physician: Leo Martinez History of present illness: This is a pleasant 54-year-old female who came in with complaints of shortness of breath and cough. Apparently patient was diagnosed with pneumonia by her PCP and started on outpatient antibiotics. Her breathing was getting worse and her cough she came in for further evaluation. She was admitted for acute hypoxic respiratory failure secondary to community-acquired pneumonia. They did a chest CT with contrast that reported bilateral pulmonary embolism. She was requiring 15 L high flow nasal cannula yeah. Chest x-ray showed worsening left lower lung infiltrate and left hilar masslike opacity and elevation left hemidiaphragm. Vascular surgery was consulted for bilateral PE. Patient also had venous duplex of the lower extremities that shows left lower extremity DVT with thrombus from distal femoral vein through calf veins. She currently has shortness of breath, she is tachycardic, and productive cough. She states that her left lower extremity always bothers her. She denies any previous history of DVT or PE. She does have a family history of blood clots but is unsure if there is any formal diagnosis of clotting disorders. She denies any recent surgeries, no control, she is a non-smoker, and no recent travel. States she has been a little more sedentary over the last week or so due to her pneumonia. Review of Systems A 14 point review systems was completed all pertinent positives and negatives as stated in the HPI. Past Medical History Past Medical History: No Reported History History of Any Multi-Drug Resistant Organisms: None Reported Past Surgical History: Section Additional Past Surgical History / Comment(s): x3 Past Anesthesia/Blood Transfusion Reactions: No Reported Reaction Past Psychological History: No Psychological Hx Reported Smoking Status: Never smoker Past Alcohol Use History: None Reported Past Drug Use History: None Reported - Past Family History Mother Family Medical History: Deep Vein Thrombosis (DVT) Medications and Allergies Home Medications Medication Instructions Recorded Confirmed Type Cefdinir [Omnicef] 300 mg PO Q12HR 06/20/24 06/20/24 History guaiFENesin SYRUP 100MG/5ML 200 mg PO Q6H PRN 06/20/24 06/20/24 History [Robitussin] Allergies Allergy/AdvReac Type Severity Reaction Status Date / Time No Known Allergies Allergy Verified 06/20/24 17:27 Surgical - Exam Vital Signs Temp Pulse Resp BP Pulse Ox 98.7 F 109 H 18 93/66 88 L 06/20/24 15:41 06/20/24 15:41 06/20/24 15:41 06/20/24 15:41 06/20/24 15:41 General appearance: The patient is alert, oriented, appears in no acute distress. HET: Head is normocephalic and atraumatic. Pupils are equal and reactive. Neck: Supple. Heart: Regular. Lungs: Equal expansion, normal respiratory effort. Decreased breath sounds on the left. Abdomen: Soft, nontender, nondistended. Extremities: Normal skin color and turgor. Palpable bilateral DP pulses. Mild swelling of the left lower extremity Neurological: No focal deficits. Strength and sensation are grossly intact. Results - Labs 06/22/24 05:47 06/22/24 05:47 Abnormal Lab Results - Last 24 Hours (Table) 06/21/24 06/21/24 06/22/24 Range/Units 23:02 23:02 05:47 RBC 3.60 L (3.80-5.40) m/uL Hgb 10.8 L (11.4-16.0) gm/dL Hct 33.0 L (34.0-46.0) % Lymphocytes # 0.5 L (1.0-4.8) k/uL APTT 31.0 H (22.0-30.0) sec Potassium 3.3 L (3.5-5.1) mmol/L BUN 4 L (7-17) mg/dL Creatinine 0.49 L (0.52-1.04) mg/dL Calcium 7.9 L (8.4-10.2) mg/dL ALT 60 H (4-34) U/L Alkaline Phosphatase 142 H (38-126) U/L Total Protein 5.4 L (6.3-8.2) g/dL Albumin 2.8 L (3.5-5.0) g/dL 06/22/24 06/22/24 Range/Units 05:47 05:47 RBC 3.64 L (3.80-5.40) m/uL Hgb 10.8 L (11.4-16.0) gm/dL Hct (34.0-46.0) % Lymphocytes # 0.7 L (1.0-4.8) k/uL APTT 62.1 H (22.0-30.0) sec Potassium (3.5-5.1) mmol/L BUN (7-17) mg/dL Creatinine (0.52-1.04) mg/dL Calcium (8.4-10.2) mg/dL ALT (4-34) U/L Alkaline Phosphatase (38-126) U/L Total Protein (6.3-8.2) g/dL Albumin (3.5-5.0) g/dL Microbiology - Last 24 Hours (Table) 06/20/24 16:28 Blood Culture - Preliminary Blood Diabetes panel 06/22/24 Range/Units 05:47 Sodium 140 (137-145) mmol/L Potassium 3.3 L (3.5-5.1) mmol/L Chloride 105 (98-107) mmol/L Carbon Dioxide 30 (22-30) mmol/L BUN 4 L (7-17) mg/dL Creatinine 0.49 L (0.52-1.04) mg/dL Glucose 94 (74-99) mg/dL Calcium 7.9 L (8.4-10.2) mg/dL AST 36 (14-36) U/L ALT 60 H (4-34) U/L Alkaline Phosphatase 142 H (38-126) U/L Total Protein 5.4 L (6.3-8.2) g/dL Albumin 2.8 L (3.5-5.0) g/dL Calcium panel 06/22/24 Range/Units 05:47 Calcium 7.9 L (8.4-10.2) mg/dL Albumin 2.8 L (3.5-5.0) g/dL Pituitary panel 06/22/24 Range/Units 05:47 Sodium 140 (137-145) mmol/L Potassium 3.3 L (3.5-5.1) mmol/L Chloride 105 (98-107) mmol/L Carbon Dioxide 30 (22-30) mmol/L BUN 4 L (7-17) mg/dL Creatinine 0.49 L (0.52-1.04) mg/dL Glucose 94 (74-99) mg/dL Calcium 7.9 L (8.4-10.2) mg/dL Adrenal panel 06/22/24 Range/Units 05:47 Sodium 140 (137-145) mmol/L Potassium 3.3 L (3.5-5.1) mmol/L Chloride 105 (98-107) mmol/L Carbon Dioxide 30 (22-30) mmol/L BUN 4 L (7-17) mg/dL Creatinine 0.49 L (0.52-1.04) mg/dL Glucose 94 (74-99) mg/dL Calcium 7.9 L (8.4-10.2) mg/dL Total Bilirubin 0.6 (0.2-1.3) mg/dL AST 36 (14-36) U/L ALT 60 H (4-34) U/L Alkaline Phosphatase 142 H (38-126) U/L Total Protein 5.4 L (6.3-8.2) g/dL Albumin 2.8 L (3.5-5.0) g/dL - Imaging Comments: Echocardiogram reports left ventricular systolic function borderline normal. Normal right ventricular size and function with mild pulmonary hypertension. Mild tricuspid regurgitation. Venous duplex reports acute DVT in the left lower extremity is now present they say that have on chest CT with contrast reports significant bilateral acute pulmonary embolism. There is suspected mild right ventricular dilation. Prominent consolidation with air bronchograms occupying significant portion of the left lower lobe having some surrounding groundglass opacity. Smaller degree of consolidation/atelectasis posterior lingula. Patchy groundglass opacities in the right middle and lower lobe at level of diaphragm all could reflect acute infectious process. No obvious central obstructing mass or neoplasm in the left lower lobe. Assessment and Plan Assessment: 1. Bilateral pulmonary embolism with mild right heart strain 2. Pneumonia 3. Acute hypoxic respiratory failure secondary to 1 and 2 above 4. Left lower extremity deep vein thrombosis Plan: 1. Continue heparin infusion as ordered 2. Keep n.p.o. 3. Patient scheduled for pulmonary thrombectomy with Inari today. Procedure discussed with patient and including risks and benefits. Patient is agreeable to proceed. 4. Apply lower extremity compression stockings 5. Hematology on consult, family history of blood clots. Appreciate their recommendations 6. Rest of medical management per ICU planning intern and PCP 7. Further recommendations forthcoming based on clinical course Thank you for this consultation, we will continue to follow. The impression and plan of care has been dictated as directed. I performed a history and examination of this patient, discussed the same with the dictator. I agree with the dictator's note ,documented as a scribe. Any additional findings or plans will be noted.
[2024-06-22] MEDS: IV FLUID CONTINUATION 800 ML IV ONE ×2 (12:20)
[2024-06-22] MEDS: MIDAZOLAM 2 MG/2 ML VIAL IVP ONE (12:39)
[2024-06-22] MEDS: LIDOCAINE 1% INJ 10MG/ML (20 ML MDV) SQ ONE (12:42)
[2024-06-22] MEDS: fentaNYL (PF) 50 MCG/ML 2 ML AMP IVP ONE (12:54)
[2024-06-22] MEDS: HEPARIN SODIUM 1,000 UN/ML (10ML VL) IVP ONE (13:17)
--- NOTE | 2024-06-22 13:17 | P.PN ---
Subjective Progress Note Date: 06/22/24 Patient is a 54-year-old white female without any significant past medical history. Her primary care provider is Dr. Roa. Chief complaint is a nonproductive congested cough and associated subjective fevers starting approximately 1 week ago. On Friday, she did go to her primary care provider and diagnosed with pneumonia. She was prescribed an oral antibiotic. Despite treatment, no improvement, and patient came to the emergency department yesterday evening. She was admitted with IV antibiotics in the form of azithromycin and Rocephin. No repeat chest x-ray has yet been performed. She is currently resting comfortably on the medical surgical unit. She is on 3 L/min nasal cannula. She is in no acute respiratory distress. She denies any significant history of chronic pulmonary disease. Does not take any inhalers at home. Denies history of tobacco use. She states that her cough is congested without sputum production. Does have associated left-sided back pain with coughing and deep breathing that developed over same time from. Denies hemoptysis. Denies history of cancer. Denies weight loss. No measured fevers while inpatient. No leukocytosis. Denies nausea, vomiting, diarrhea. She is tolerating oral intake. Also receiving normal saline at 130 mL/h. CBC: WBC count 5, hemoglobin 12.7, hematocrit 37.9, platelets 185. CMP: Sodium 139, potassium 4.4, chloride 103, serum bicarb 28, BUN 16, creatinine 0.77, glucose 106. Lactic 1. AST 74, ALT 108, ALP 171. Current vitals: Temperature 97.9 F, heart rate 93 bpm, blood pressure 99/71, respiratory rate 22 bpm, SpO2 95% on 3 L/min nasal cannula. Nontoxic appearance. On 06/22/2024, the patient is transferred to the intensive care unit. I saw this patient in consultation yesterday. I was not absolutely convinced that the patient had a pneumonia. There was some volume loss and atelectasis in the left lung base in addition to some right perihilar opacity. Based on that, I ordered a CT angiogram of the chest and the findings were quite abnormal. The patient was found to have evidence of bilateral pulmonary embolism and suspected mild RV dilatation. There was also prominent atelectasis in the left lower lobe surrounding minimal groundglass opacity. Immediately, the patient was started on IV heparin. Doppler of the lower extremity was also ordered and the patient was found to have a thrombus in the distal femoral vein on the left. Also, an echocardiogram was obtained this morning and the patient was found to have a preserved LV function with an ejection fraction of 50 to 55%. LV cavity was normal. RV size was normal and there was mild pulmonary hypertension with a PA pressure of 35. Meanwhile, the patient became progressively more hypoxic. Currently is on 15 L of oxygen by nasal cannula with a pulse ox ranging between 94 to 97%. She continues to have chest discomfort and cough and some pleurisy. The white cell count is 4.9, hemoglobin 10.8 and a platelet count of 173. The sodium is at 140, BUN is at 4 with a creatinine of 0.5. Potassium is at 3.3. Troponins are negative. Liver function tests show an alkaline phosphatase of 142, AST and ALT are both normal. Her procalcitonin level was at 0.14. She remains on IV Rocephin. Currently, she is afebrile and she is also hemodynami beatriz stable. No significant tachycardia.. Objective - Vital Signs Vital signs: Vital Signs Temp 98.9 F 06/22/24 08:00 Pulse 96 06/22/24 11:00 Resp 20 06/22/24 11:00 BP 118/76 06/22/24 11:00 Pulse Ox 97 06/22/24 11:00 FiO2 Intake & Output 06/21/24 06/22/24 06/22/24 18:59 06:59 18:59 Intake Total 780 Output Total 700 Balance 80 Weight 83.5 kg Intake: Intake, IV Titration 780 Amount Sodium Chloride 0.9% 1, 780 000 ml @ 130 mls/hr IV . Q7H42M [facility] Rx#:[id number] Output: Urine 700 Other: Voiding Method Toilet Bedside Commode Bedpan # Voids 1 - Exam GENERAL EXAM: Alert, 55-year-old white female, mild respiratory distress and the patient is currently on 15 L of oxygen by nasal cannula HEAD: Normocephalic and atraumatic EYES: Normal reaction of pupils, equal size. NOSE: Clear with pink turbinates. THROAT: No erythema or exudates. NECK: No masses, no JVD. CHEST: No chest wall deformity. LUNGS: Equal air entry with minimal bibasilar crackles, left sided dullness. D iminished breath sound the left lung base CVS: S1 and S2 normal with no audible murmur, regular rhythm. No extra heart sounds ABDOMEN: No hepatosplenomegaly, active bowel sounds, no guarding or rigidity. SPINE: No scoliosis or deformity SKIN: No rashes CENTRAL NERVOUS SYSTEM: No focal deficits, tone is normal in all 4 extremities. EXTREMITIES: There is no peripheral edema, clubbing, or cyanosis. Peripheral pulses are intact. - Labs CBC & Chem 7: 06/22/24 05:47 06/22/24 05:47 Labs: Abnormal Lab Results - Last 24 Hours (Table) 06/21/24 06/21/24 06/22/24 Range/Units 23:02 23:02 05:47 RBC 3.60 L (3.80-5.40) m/uL Hgb 10.8 L (11.4-16.0) gm/dL Hct 33.0 L (34.0-46.0) % Lymphocytes # 0.5 L (1.0-4.8) k/uL APTT 31.0 H (22.0-30.0) sec Potassium 3.3 L (3.5-5.1) mmol/L BUN 4 L (7-17) mg/dL Creatinine 0.49 L (0.52-1.04) mg/dL Calcium 7.9 L (8.4-10.2) mg/dL ALT 60 H (4-34) U/L Alkaline Phosphatase 142 H (38-126) U/L Total Protein 5.4 L (6.3-8.2) g/dL Albumin 2.8 L (3.5-5.0) g/dL 06/22/24 06/22/24 Range/Units 05:47 05:47 RBC 3.64 L (3.80-5.40) m/uL Hgb 10.8 L (11.4-16.0) gm/dL Hct (34.0-46.0) % Lymphocytes # 0.7 L (1.0-4.8) k/uL APTT 62.1 H (22.0-30.0) sec Potassium (3.5-5.1) mmol/L BUN (7-17) mg/dL Creatinine (0.52-1.04) mg/dL Calcium (8.4-10.2) mg/dL ALT (4-34) U/L Alkaline Phosphatase (38-126) U/L Total Protein (6.3-8.2) g/dL Albumin (3.5-5.0) g/dL Microbiology - Last 24 Hours (Table) 06/20/24 16:28 Blood Culture - Preliminary Blood Assessment and Plan Assessment: Acute hypoxemic respiratory failure, on 15 L of oxygen by nasal cannula Acute bilateral pulmonary embolism, currently on IV heparin. Patient carries a positive family history in her mother has had history of DVT. Troponins are negative. Echocardiogram shows only mild pulm hypertension with an estimated PA pressure of 35. No significant RV dilatation. Nevertheless, the patient has developed significant hypoxemia probably due to pulm embolism and ongoing atelectatic changes in the left lung base. Pneumonia is felt to be less likely. Left femoral DVT confirmed on ultrasound Doppler of the left lower extremity Shortness of breath secondary to above with progressive worsening in the oxygenation. Plan: Keep oxygen at 15 L/min nasal cannula CT of the chest was reviewed. Echocardiogram was reviewed. Troponins are negative. Patient is hypoxemic and short of breath. Encouraged use of incentive spirometer Continue empiric antibiotic coverage Procalcitonin level is mildly elevated Discussed the case with vascular surgery and the patient will benefit from clot thrombectomy. The patient will be taken to the vascular lab for a clot thrombectomy versus intra-arterial thrombolytic therapy using the EKOS system. Explained the findings to the patient. Contacted who is aware of the case. The patient will be kept in the intensive care unit for now. . Will continue to follow.
[2024-06-22] MEDS: IOPAMIDOL-370 100ML BTL INJ ONE ×4 (13:31)
--- NOTE | 2024-06-22 13:58 | P.OP ---
Date of Procedure: 06/22/24 Preoperative Diagnosis: Bilateral pulmonary artery embolism with right heart strain Postoperative Diagnosis: Same Procedure(s) Performed: Ultrasound-guided right common femoral vein access Pulmonary angiogram with selective right and left pulmonary artery angiograms Percutaneous thrombectomy with Inari flowtriever with extirpation of clot from right main pulmonary artery Percutaneous thrombectomy with Inari flowtriever with extirpation of clot from right truncus anterior Percutaneous thrombectomy with Inari flowtriever with extirpation of clot from right segmental pulmonary artery Percutaneous thrombectomy with Inari flowtriever with extirpation of clot from the left main pulmonary artery Percutaneous thrombectomy with Inari flowtriever with extirpation of the clot from the left segmental pulmonary artery Conscious sedation x 55 minutes Anesthesia: local Surgeon: Jacob Mason IV fluids (ml): 200 Pathology: none sent Condition: stable Disposition: ICU Indications for Procedure: 54-year-old female with history of shortness of breath x 2 weeks was recently admitted for pneumonia and during workup was having increased work of breathing on 15 L high flow nasal cannula and underwent CT with contrast demonstrating large pulmonary artery clot burden bilaterally with right heart strain. She presents today for urgent thrombectomy. Description of Procedure: After written and informed consent was obtained the patient all risks, benefits and competitions were described patient was brought to the Solution Analyst laid in a supine position. The area of the groins were prepped and draped in usual sterile fashion. Utilizing ultrasound guidance the right common femoral vein was located and shown to be patent without thrombus and then was accessed with a micropuncture kit and utilizing Seldinger technique an 8-Israeli sheath was placed. 035 guidewire was then advanced into the IVC under fluoroscopic guidance. Track was dilated and the Inari 24-Israeli sheath was placed. An angled pigtail catheter was then placed and utilizing a J-wire the heart was entered and advanced into the pulmonary artery. Pigtail catheter was then removed over the wire and a JR4 catheter was placed and the right pulmonary artery was entered and wire was placed to the main right pulmonary artery. The wire was then exchanged for an Amplatz wire in normal fashion. Patient was administered heparin at this time. A thrombectomy catheter was then advanced and pulmonary angiogram was obtained demonstrating thrombus within the right main and segmental branches as well as the left main. Mechanical thrombectomy was then performed with aspiration of multiple large clots. Aspiration was performed 5 times. Right pulmonary angiogram was then obtained demonstrating resolution of thrombus within the main pulmonary artery as well as the truncus anterior. Catheter was then selectively placed in the left main pulmonary artery and mechanical thrombectomy was performed 4 times. Pulmonary and gram was then obtained demonstrating complete resolution of thrombus with good filling to the outer aspects of the long on both sides. Once completed all catheters and wires were removed. A suture was placed in the right groin after the sheath was removed for hemostasis. Patient tolerated procedure well and was sent to recovery.
--- NOTE | 2024-06-22 13:59 | P.CONS ---
History of Present Illness - Reason for Consult Consult date: 06/22/24 PE/ DVT, FH of blood clots Requesting physician: Sherita Roa - Chief Complaint Fever, SOB - History of Present Illness Mrs. Robbins is a 54-year-old female with no significant past medical history, not on medications for chronic conditions, who is currently admitted with pr ogressive shortness of breath for over the last week. She was being treated outpatient for suspected pneumonia but, her shortness of breath worsened. She came into the hospital, CTA of the chest was positive for bilateral PE, bilateral lower extremity Doppler positive for left lower extremity DVT. Patient reports on her mother side "everybody" had blood clots. She had no other symptoms in her legs other than they felt heavy. She is currently denying any chest pain or pain with deep inspiration. She has never had a blood clot before. She denies any autoimmune disorders, exposures to toxic respiratory substances. Denies outside of the state or country travel, long periods of immobility other than moving around less than normal lately because of acute illness. Chest x-ray impression was compared to 3 days prior, worsening left lower lung infiltrate and/or atelectasis. Persistent left hilar masslike opacity. CT of the chest reports consolidation with air bronchograms and surrounding groundglass opacities affecting the left lower lobe. No obvious central obstructing mass some dependent consolidation/atelectasis in the lingula. Patchy groundglass opacities in the right middle and right lower lobe. Linear scarring posterior right lower lobe. No pneumothorax. Bilateral acute pulmonary emboli with significant embolism in the right lower lobe and large embolism in the left lower lobe. Left ventricular dilation noted. Large 2.2 cm gallstone in the gallbladder. Liver ultrasound reporting a liver length of 18.8 cm, cholelithiasis without evidence of gross bile duct dilation. Bilateral lower extremity venous Doppler study reports right leg is negative for DVT, left leg thrombus seen from distal femoral vein throughout the calf veins. Echo reporting LVEF 50 to 55% no gross abnormalities reported other than some mild pulmonary hypertension and mild tricuspid regurgitation. Hemoglobin 10.8, WBCs 4.9 ANC 3.7, mildly decreased lymphocytes at 0.7, platelets 173,000 BUN 4, creatinine 0.49 mildly elevated liver enzymes on admission, improving, alk phos 142. Respiratory viral panel is negative. Patient is still short of breath when seen, she is on oxygen 15 L, 100.3 Tmax since admission. She states that her cough is chronic, something she has had for very long time, not significantly different at this time, no reported purulent expectoration or hemoptysis. She denies having any chest discomfort with deep inspiration, no reports of palpitations, nausea or vomiting, abdominal pain, acute changes in bowel or bladder habits. She denies noticing any swelling in the left lower extremity, she is reporting that the leg feels "heavy". Review of Systems 10 point ROS is neg except as stated in HPI Past Medical History Past Medical History: No Reported History History of Any Multi-Drug Resistant Organisms: None Reported Past Surgical History: Section Additional Past Surgical History / Comment(s): x3 Past Anesthesia/Blood Transfusion Reactions: No Reported Reaction Past Psychological History: No Psychological Hx Reported Smoking Status: Never smoker Past Alcohol Use History: None Reported Past Drug Use History: None Reported - Past Family History Mother Family Medical History: Deep Vein Thrombosis (DVT) Medications and Allergies Home Medications Medication Instructions Recorded Confirmed Type Cefdinir [Omnicef] 300 mg PO Q12HR 06/20/24 06/20/24 History guaiFENesin SYRUP 100MG/5ML 200 mg PO Q6H PRN 06/20/24 06/20/24 History [Robitussin] Allergies Allergy/AdvReac Type Severity Reaction Status Date / Time No Known Allergies Allergy Verified 06/20/24 17:27 Physical Exam Vitals: Vital Signs Temp Pulse Pulse Pulse Resp BP BP 06/22/24 11:00 96 20 118/76 06/22/24 10:00 96 06/22/24 09:25 06/22/24 09:00 100 06/22/24 08:00 98.9 F 86 26 H 107/73 06/22/24 04:00 98.6 F 91 23 123/75 06/22/24 01:55 103 H 06/22/24 01:46 89 06/22/24 00:00 98.3 F 102 H 16 119/73 06/21/24 20:07 98.8 F 98 18 114/75 06/21/24 14:00 100.3 F H 105 H 17 111/74 Pulse Ox 06/22/24 11:00 97 06/22/24 10:00 96 06/22/24 09:25 94 L 06/22/24 09:00 94 L 06/22/24 08:00 97 06/22/24 04:00 96 06/22/24 01:55 06/22/24 01:46 06/22/24 00:00 95 06/21/24 20:07 91 L 06/21/24 14:00 92 L Intake and Output 06/21/24 06/22/24 06/22/24 22:59 06:59 14:59 Intake Total 780 Output Total 700 Balance 80 Intake: Intake, IV Titration 780 Amount Sodium Chloride 0.9% 1, 780 000 ml @ 130 mls/hr IV . Q7H42M [facility] Rx#:[id number] Output: Urine 700 Other: Voiding Method Toilet Toilet Bedside Commode Bedpan # Voids 1 Weight 83.5 kg - Constitutional General appearance: average body habitus, cooperative, mild distress - EENT Eyes: anicteric sclerae, EOMI ENT: hearing grossly normal, normal oropharynx - Neck Neck: no lymphadenopathy - Respiratory Respiratory: bilateral: diminished - Cardiovascular Rhythm: regular Heart sounds: normal: S1, S2 Abnormal Heart Sounds: no systolic murmur, no diastolic murmur, no rub, no S3 Gallop, no S4 Gallop, no click, no other leg Peripheral Edema: right: None, left: Trace - Gastrointestinal General gastrointestinal: no absent bowel sounds, no decreased bowel sounds, no distended, no hepatomegaly, no hyperactive bowel sounds, normal bowel sounds, no organomegaly, no rigid, no scaphoid, soft, no splenomegaly, no tenderness, no umbilical hernia, no ventral hernia - Integumentary Integumentary: normal - Neurologic Neurologic: CNII-XII intact - Musculoskeletal Musculoskeletal: generalized weakness, strength equal bilaterally - Psychiatric Psychiatric: A&O x's 3, appropriate affect, intact judgment & insight Results CBC & Chem 7: 06/22/24 05:47 06/22/24 05:47 Labs: Abnormal Lab Results - Last 24 Hours (Table) 06/21/24 06/21/24 06/22/24 Range/Units 23:02 23:02 05:47 RBC 3.60 L (3.80-5.40) m/uL Hgb 10.8 L (11.4-16.0) gm/dL Hct 33.0 L (34.0-46.0) % Lymphocytes # 0.5 L (1.0-4.8) k/uL APTT 31.0 H (22.0-30.0) sec Potassium 3.3 L (3.5-5.1) mmol/L BUN 4 L (7-17) mg/dL Creatinine 0.49 L (0.52-1.04) mg/dL Calcium 7.9 L (8.4-10.2) mg/dL ALT 60 H (4-34) U/L Alkaline Phosphatase 142 H (38-126) U/L Total Protein 5.4 L (6.3-8.2) g/dL Albumin 2.8 L (3.5-5.0) g/dL 06/22/24 06/22/24 Range/Units 05:47 05:47 RBC 3.64 L (3.80-5.40) m/uL Hgb 10.8 L (11.4-16.0) gm/dL Hct (34.0-46.0) % Lymphocytes # 0.7 L (1.0-4.8) k/uL APTT 62.1 H (22.0-30.0) sec Potassium (3.5-5.1) mmol/L BUN (7-17) mg/dL Creatinine (0.52-1.04) mg/dL Calcium (8.4-10.2) mg/dL ALT (4-34) U/L Alkaline Phosphatase (38-126) U/L Total Protein (6.3-8.2) g/dL Albumin (3.5-5.0) g/dL Microbiology - Last 24 Hours (Table) 06/20/24 16:28 Blood Culture - Preliminary Blood Comments: Liver US report reviewed ECHO report reviewed Chest x-ray: report reviewed CT Scan - head: report reviewed Venous US: report reviewed Assessment and Plan (1) Bilateral pulmonary embolism Current Visit: Yes Status: Acute Priority: High Code(s): I26.99 - OTHER PULMONARY EMBOLISM WITHOUT ACUTE COR PULMONALE SNOMED Code(s): 76257913 (2) DVT (deep venous thrombosis) Current Visit: Yes Status: Acute Priority: High Code(s): I82.409 - ACUTE EMBOLISM AND THOMBOS UNSP DEEP VN UNSP LOWER EXTREMITY SNOMED Code(s): 453107200 (3) Family history of blood clots Current Visit: Yes Status: Chronic Priority: High Code(s): Z82.49 - FAMILY HX OF ISCHEM HEART DIS AND OTH DIS OF THE CIRC SYS SNOMED Code(s): 183275823 Plan: Bilateral pulmonary embolism, left lower extremity DVT -Soft provoking factors of acute illness and decreased mobility due to the same. -Patient is going to be having thrombectomy with Vascular surgery later on today. Hopefully this will help with some of her respiratory symptoms. -Agree with heparin drip for now. -Plan would be to transition to oral anticoagulation. Phospholipid antibodies will be ordered. Any positive findings will impact choice of anticoagulation (Coumadin versus DOAC). Pending results, further recommendations to follow -Will plan for the rest of the hypercoagulable workup outpatient as it will not change initial management of PE/DVT. -Anticoagulation recommendations would be for 6 months to 1 year based on severity of PE and symptoms. Pending the rest of the hypercoagulable workup, recommendations may change. All of the above was discussed with the patient, she verbalized understanding plan and recommendations
--- NOTE | 2024-06-22 14:02 | IR ---
EXAMINATION TYPE: IR transcath embolizat therapy DATE OF EXAM: 06/22/2024 COMPARISON: NONE CLINICAL INDICATION: Female, 54 years old with history of Saddle PE, rt gr laurence figure 8, 15m/24.3DAP; Fluoroscopy was provided to the referring clinician. [facility], , 06/22/2024 2:00 PM
[2024-06-22 16:27] LABS: Cardiolipin Ab IgG Interp Negative (Negative); Cardiolipin Ab IgM Interp Negative (Negative); Cardiolipin IgM Antibody <1.5 U/mL
[2024-06-23 05:59] LABS: Basophils % (A) 1 %; Eosinophils # (A) 0.1 k/uL (0-0.7); Eosinophils % (A) 2 %; HCT 33.1 % (34.0-46.0); HGB 10.6 gm/dL (11.4-16.0); Hypochromasia Slight; Lymphocytes # (A) 0.8 k/uL (1.0-4.8); Lymphocytes % (A) 15 %; MCH 29.7 pg (25.0-35.0); MCV 92.9 fL (80.0-100.0); Monocytes # (A) 0.2 k/uL (0-1.0); Monocytes % (A) 3 %; Neutrophils # (A) 4.1 k/uL (1.3-7.7); Neutrophils % (A) 78 %; Platelet Count 221 k/uL (150-450); RBC 3.57 m/uL (3.80-5.40); RDW 12.4 % (11.5-15.5); WBC 5.2 k/uL (3.8-10.6)
[2024-06-23 06:32] LABS: ALT 48 U/L (4-34); AST 33 U/L (14-36); African American GFR (CKD) >90 (>60 ml/min/1.73 sqM); Albumin 2.6 g/dL (3.5-5.0); Alkaline Phosphatase 115 U/L (38-126); Anion Gap 4 mmol/L; Blood Urea Nitrogen 7 mg/dL (7-17); Carbon Dioxide 26 mmol/L (22-30); Chloride 108 mmol/L (98-107); Glucose 83 mg/dL (74-99); Non-African American GFR(CKD) >90 (>60 ml/min/1.73 sqM); Potassium 3.6 mmol/L (3.5-5.1); Sodium 138 mmol/L (137-145); Total Bilirubin 0.6 mg/dL (0.2-1.3); Total Protein 5.1 g/dL (6.3-8.2)
[2024-06-23] MEDS ORDERED: Potassium Replacement Protocol 1 EACH MISC MISCELLANE PRN (07:44)
[2024-06-23] MEDS: POTASSIUM CHLORIDE ER 20 MEQ TAB.ER PO SCH (08:22)
--- NOTE | 2024-06-23 09:29 | P.PN ---
Subjective Progress Note Date: 06/23/24 Principal diagnosis: Bilateral PE, DVT Patient is seen and examined today in the ICU. Yesterday she underwent percutaneous thrombectomy. States her breathing does seem a little bit easier. She is only requiring 3 L high flow cannula with saturation at 94%, this is down from 15 L high flow nasal cannula from yesterday prior to procedure. She denies any pain in her groin, no lower extremity pain. She remains on a heparin drip. WBC 5.2 hemoglobin 10.6 platelet count 221,000. Objective - Vital Signs Vital signs: Vital Signs Temp 98.4 F 06/23/24 08:00 Pulse 113 H 06/23/24 09:00 Resp 24 06/23/24 09:00 BP 95/57 06/23/24 09:00 Pulse Ox 90 L 06/23/24 09:00 FiO2 Intake & Output 06/22/24 06/23/24 06/23/24 18:59 06:59 18:59 Intake Total 0711.794 7148 130 Output Total 800 600 0 Balance 244.016 0183 130 Weight 81.3 kg Intake: IV 350 1560 130 Sodium Chloride 0.9% 1, 1560 130 000 ml @ 130 mls/hr IV . Q7H42M [facility] Rx#:[id number] Intake, IV Titration 1359.475 130 Amount Heparin Sod,Pork in 0.45% 219.475 NaCl 25,000 unit In 0.45 % NaCl 1 250ml.bag @ 18 UNITS/KG/HR 13.064 mls/hr IV .Q19H9M [facility] Rx#: [id number] Potassium Chloride 10 meq 100 In Water For Injection 1 100ml.bag @ 100 mls/hr [facility] Rx#: [id number] Sodium Chloride 0.9% 1, 1040 130 000 ml @ 130 mls/hr IV . Q7H42M [facility] Rx#:[id number] Output: Urine 800 600 0 Other: Voiding Method Bedside Commode Bedside Commode Bedside Commode # Voids 1 - Exam General appearance: The patient is alert, oriented, appears in no acute distress. HET: Head is normocephalic and atraumatic. Neck: Supple. Heart: Regular. Lungs: Equal expansion, normal respiratory effort. Abdomen: Soft, nontender, nondistended. Extremities: Normal skin color and turgor. Right groin with suture intact, no hematoma or bleeding noted. Suture removed. Bilateral lower extremities with palpable DP pulse. No swelling. Neurological: No focal deficits. - Labs CBC & Chem 7: 06/23/24 05:20 06/23/24 05:26 Labs: Abnormal Lab Results - Last 24 Hours (Table) 06/23/24 06/23/24 06/23/24 Range/Units 05:20 05:26 05:43 RBC 3.57 L (3.80-5.40) m/uL Hgb 10.6 L (11.4-16.0) gm/dL Hct 33.1 L (34.0-46.0) % Lymphocytes # 0.8 L (1.0-4.8) k/uL APTT 71.6 H (22.0-30.0) sec Chloride 108 H (98-107) mmol/L Calcium 8.0 L (8.4-10.2) mg/dL ALT 48 H (4-34) U/L Total Protein 5.1 L (6.3-8.2) g/dL Albumin 2.6 L (3.5-5.0) g/dL Microbiology - Last 24 Hours (Table) 06/20/24 16:28 Blood Culture - Preliminary Blood Assessment and Plan Assessment: 1. Bilateral pulmonary embolism with mild right heart strain status post percutaneous thrombectomy 2. Pneumonia 3. Acute hypoxic respiratory failure secondary to 1 and 2 above 4. Left lower extremity deep vein thrombosis Plan: 1. May transition to oral anticoagulation of your choice 2. Patient may have heart healthy diet 3. Encourage increasing activity 4. Apply lower extremity compression stockings 5. Hematology on consult, family history of blood clots. Appreciate their recommendations 6. Rest of medical management per ICU heater engineer helper and PCP 7. Right groin sutures removed. Discharge instructions reviewed with patient. 8. There is no indication for any further vascular surgical intervention. Patient is cleared by vascular surgery for discharge once medically stable. Recommend outpatient repeat echocardiogram in 1 to 2 weeks. Thank you for this consultation, we will sign off at this time. The impression and plan of care has been dictated as directed. Dr. Cole I performed a history and examination of this patient, discussed the same with the dictator. I agree with the dictator's note ,documented as a scribe. Any additional findings or plans will be noted.
--- NOTE | 2024-06-23 09:37 | XR ---
EXAMINATION TYPE: XR chest 1V portable DATE OF EXAM: 06/23/2024 COMPARISON: 06/21/2024 CLINICAL INDICATION: Female, 54 years old with history of shortness of breath; , TECHNIQUE: XR chest 1V portable views of the chest. FINDINGS: Left lower lobe consolidation and small to moderate pleural effusion slightly increased from prior ex am. Underlying neoplasm not excluded. Right basilar subsegmental infiltrates stable. Heart size arabella l. No pneumothorax. Osseous structures are stable. IMPRESSION: 1. Interval mild progression of left-sided consolidation and small effusion. 2. Stable right lower lobe infiltrate. [facility], , 06/23/2024 9:34 AM
--- NOTE | 2024-06-23 10:46 | P.PN ---
Subjective Progress Note Date: 06/23/24 Jayleen Robbins, is a 54-year-old female who presented to [facility] emergency room with a chief complaint of cough and shortness of breath, patient presented to the office for 3 days before with similar symptoms at that time testing for influenza and COVID was negative, she was given an order for a chest x-ray which came back positive for left lower lobe infiltrate, she was given a course of cefdinir 300 mg twice daily p.o., however her condition continued to worsen and she decided to come to emergency room. She was evaluated in the emergency room vital examination on presentation re vealed a temperature of 98.7 pulse 109 respiration 18 blood pressure 93/66 pulse ox 88% on room air Laboratory data revealed a white blood count of 5.0 hemoglobin 12.7 platelet count 185 AST 74 ALT 108 alkaline phosphatase 171, influenza A and B PCR RSV PCR and COVID-19 PCR were all negative Testing in the emergency room revealed, chest x-ray done in the emergency room revealed worsening left lower lobe infiltrate, underlying mass or neoplasm not excluded. Patient was started on IV ceftriaxone and IV Zithromax and oxygen supplements, and was admitted to medical floor, pulmonary consultation was requested On 06/22/2024 patient is alert and oriented x 3. Patient remains in the intensive care unit. Patient was positive for PE and DVT started on heparin drip. Per patient's patient's mother also has history of blood clot will consult hematology services. Patient remains short of breath. Patient denies chest pain. Patient denies nausea vomiting or diarrhea. On 06/23/2024 patient is alert and oriented x 3. Patient underwent thrombectomy with vascular surgery. Patient remains in the ICU. Oxygen is down to 3 L. Patient reports some improvement. Hematology services also consulted due to concerns of family history of blood clots. Patient remains on heparin drip. Current vital signs temp 98.4, heart rate 89, respiratory rate 24, blood pressure 95/60 with a pulse ox of 94% on 3 L. Patient denies chest pain. Patient reports some shortness of breath. Patient denies any urinary burning or frequency Objective - Vital Signs Vital signs: Vital Signs Temp 98.4 F 06/23/24 08:00 Pulse 93 06/23/24 10:00 Resp 15 06/23/24 10:00 BP 111/74 06/23/24 10:00 Pulse Ox 94 L 06/23/24 10:00 FiO2 Intake & Output 06/22/24 06/23/24 06/23/24 18:59 06:59 18:59 Intake Total 1846.649 5138 390 Output Total 800 600 100 Balance 048.531 0537 290 Weight 81.3 kg Intake: IV 350 1560 390 Sodium Chloride 0.9% 1, 1560 390 000 ml @ 130 mls/hr IV . Q7H42M [facility] Rx#:[id number] Intake, IV Titration 1359.475 130 Amount Heparin Sod,Pork in 0.45% 219.475 NaCl 25,000 unit In 0.45 % NaCl 1 250ml.bag @ 18 UNITS/KG/HR 13.064 mls/hr IV .Q19H9M [facility] Rx#: [id number] Potassium Chloride 10 meq 100 In Water For Injection 1 100ml.bag @ 100 mls/hr IVPB ONCE [facility] Rx#: [id number] Sodium Chloride 0.9% 1, 1040 130 000 ml @ 130 mls/hr IV . Q7H42M [facility] Rx#:[id number] Output: Urine 800 600 100 Other: Voiding Method Bedside Commode Bedside Commode Bedside Commode # Voids 1 - Exam In general patient is alert and oriented x 3 in no distress HEENT head normocephalic and atraumatic Neck is supple no JVD no goiter no lymphadenopathy no carotid bruit Chest examination reveals a scattered crackles bilaterally worse on the left no wheezing Cardiac exam reveals regular heart sounds S1 and S2 no gallops no murmurs Abdomen is soft nontender no organomegaly with normal bowel sounds Extremity exam reveals no edema no cyanosis or clubbing Neurological examination reveals no gross focal deficits - Labs CBC & Chem 7: 06/23/24 05:20 06/23/24 05:26 Labs: Abnormal Lab Results - Last 24 Hours (Table) 06/23/24 06/23/24 06/23/24 Range/Units 05:20 05:26 05:43 RBC 3.57 L (3.80-5.40) m/uL Hgb 10.6 L (11.4-16.0) gm/dL Hct 33.1 L (34.0-46.0) % Lymphocytes # 0.8 L (1.0-4.8) k/uL APTT 71.6 H (22.0-30.0) sec Chloride 108 H (98-107) mmol/L Calcium 8.0 L (8.4-10.2) mg/dL ALT 48 H (4-34) U/L Total Protein 5.1 L (6.3-8.2) g/dL Albumin 2.6 L (3.5-5.0) g/dL Microbiology - Last 24 Hours (Table) 06/20/24 16:28 Blood Culture - Preliminary Blood Assessment and Plan Plan: Acute hypoxic respiratory failure Left lower lobe pneumonia, community-acquired Elevated liver enzymes Acute PE and DVT. Patient does have a family history of blood clots will consult hematology services. Status post thrombectomy. Patient yovany on heparin drip At this time patient was seen and examined Home medications reviewed Pulmonary consultation requested patient has been transferred to the intensive care unit Will continue with IV ceftriaxone and IV Zithromax For DVT prophylaxis subcu Lovenox
[2024-06-23 11:36] LABS: APTT 107 Sec(s) (<43); APTT 1:1 Mix 72 Sec(s) (<43); DRVVT 1:1 Mix 42 Sec(s) (<44); Dilute Russell Viper Venom 48 Sec(s) (<44); Hexagonal Phase Neutralization Positive (Negative)
--- NOTE | 2024-06-23 14:13 | P.PN ---
Subjective Progress Note Date: 06/23/24 Principal diagnosis: Unprovoked DVT/PE In follow-up today patient is post thrombectomy of bilateral pulmonary emboli. She is not sure if her respirations are necessarily better and she is not sure if she feels much better but objectively her O2 needs are stable and decreased from admission, visually the patient does not look as distressed as she did yesterday. No bleeding to report on heparin drip. Objective - Vital Signs Vital signs: Vital Signs Temp 98.4 F 06/23/24 08:00 Pulse 93 06/23/24 10:00 Resp 15 06/23/24 10:00 BP 111/74 06/23/24 10:00 Pulse Ox 94 L 06/23/24 10:00 FiO2 Intake & Output 06/22/24 06/23/24 06/23/24 18:59 06:59 18:59 Intake Total 8713.404 1552 900 Output Total 800 600 600 Balance 677.745 7134 300 Weight 81.3 kg Intake: IV 350 1560 650 Sodium Chloride 0.9% 1, 1560 650 000 ml @ 130 mls/hr IV . Q7H42M [facility] Rx#:[id number] Intake, IV Titration 1359.475 130 250 Amount Heparin Sod,Pork in 0.45% 219.475 250 NaCl 25,000 unit In 0.45 % NaCl 1 250ml.bag @ 18 UNITS/KG/HR 13.064 mls/hr IV .Q19H9M [facility] Rx#: [id number] Potassium Chloride 10 meq 100 In Water For Injection 1 100ml.bag @ 100 mls/hr IVPB ONCE [facility] Rx#: [id number] Sodium Chloride 0.9% 1, 1040 130 000 ml @ 130 mls/hr IV . Q7H42M [facility] Rx#:[id number] Output: Urine 800 600 600 Other: Voiding Method Bedside Commode Bedside Commode Toilet # Voids 1 # Bowel Movements 1 - Constitutional General appearance: Present: average body habitus, cooperative, no acute distress - EENT Eyes: Present: anicteric sclerae, EOMI ENT: Present: hearing grossly normal - Respiratory Details: shallow respirations, dry cough - Cardiovascular Rhythm: regular - Peripheral edema leg Peripheral Edema: bilateral: None - Integumentary Integumentary: Present: normal - Neurologic Neurologic: Present: CNII-XII intact - Musculoskeletal Musculoskeletal: Present: strength equal bilaterally - Psychiatric Psychiatric: Present: A&O x's 3, appropriate affect, intact judgment & insight - Labs CBC & Chem 7: 06/23/24 05:20 06/23/24 05:26 Labs: Abnormal Lab Results - Last 24 Hours (Table) 06/22/24 06/23/24 06/23/24 Range/Units 11:52 05:20 05:26 RBC 3.57 L (3.80-5.40) m/uL Hgb 10.6 L (11.4-16.0) gm/dL Hct 33.1 L (34.0-46.0) % Lymphocytes # 0.8 L (1.0-4.8) k/uL APTT (22.0-30.0) sec Lupus Anticoag aPTT 107 H (<43) Sec(s) Lupus Anticoag PTT Mix 72 H (<43) Sec(s) Dil Jeremy Viper Venom 48 H (<44) Sec(s) Lupus Hexagonal Phase Positive A (Negative) Chloride 108 H (98-107) mmol/L Calcium 8.0 L (8.4-10.2) mg/dL ALT 48 H (4-34) U/L Total Protein 5.1 L (6.3-8.2) g/dL Albumin 2.6 L (3.5-5.0) g/dL 06/23/24 Range/Units 05:43 RBC (3.80-5.40) m/uL Hgb (11.4-16.0) gm/dL Hct (34.0-46.0) % Lymphocytes # (1.0-4.8) k/uL APTT 71.6 H (22.0-30.0) sec Lupus Anticoag aPTT (<43) Sec(s) Lupus Anticoag PTT Mix (<43) Sec(s) Dil Jeremy Viper Venom (<44) Sec(s) Lupus Hexagonal Phase (Negative) Chloride (98-107) mmol/L Calcium (8.4-10.2) mg/dL ALT (4-34) U/L Total Protein (6.3-8.2) g/dL Albumin (3.5-5.0) g/dL Microbiology - Last 24 Hours (Table) 06/20/24 16:28 Blood Culture - Preliminary Blood - Imaging and Cardiology Chest x-ray: report reviewed Vascular operative notes reviewed Assessment and Plan (1) Bilateral pulmonary embolism Current Visit: Yes Status: Acute Priority: High Code(s): I26.99 - OTHER PULMONARY EMBOLISM WITHOUT ACUTE COR PULMONALE SNOMED Code(s): 13782496 (2) DVT (deep venous thrombosis) Current Visit: Yes Status: Acute Priority: High Code(s): I82.409 - ACUTE EMBOLISM AND THOMBOS UNSP DEEP VN UNSP LOWER EXTREMITY SNOMED Code(s): 382023642 (3) Family history of blood clots Current Visit: Yes Status: Chronic Priority: High Code(s): Z82.49 - FAMILY HX OF ISCHEM HEART DIS AND OTH DIS OF THE CIRC SYS SNOMED Code(s): 956534649 Plan: Bilateral pulmonary embolism, left lower extremity DVT -Soft provoking factors of acute illness and decreased mobility due to the same. Rather extensive pulmonary embolism. -Thrombectomy with vascular surgery, reports reviewed. Significant amount of clot removal from the sounds of it. Patient does not feel necessarily that her breathing is easier but, visually patient is much more calm and respirations are less labored. -Continue heparin drip for now. -Plan would be to transition to oral anticoagulation. Phospholipid antibodies will be ordered, cardiolipin antibodies negative, lupus anticoagulant is positive in the acute setting. Final decision will be made based on the results of beta-2 glycoprotein 1 results. It was reinforced again today that positive findings will impact choice of anticoagulation (Coumadin versus DOAC). It was also reviewed with the patient and her that, in the acute setting of significant thromboembolism, some of the results can be skewed and need to be taken as a whole, accordingly. -Will plan for the rest of the hypercoagulable workup outpatient,it will not change initial management of PE/DVT. -Anticoagulation recommendations would be for 6 months to 1 year, based on severity of PE and symptoms. Pending the rest of the hypercoagulable workup and, provoked clot, recommendations may change to lifelong anticoagulation. All the patient's questions and her 's questions were answered to their satisfaction. Doctor attests: I performed a history and physical examination of this patient, developed impression and plan of care. Discussed with dictator. I agree with dictators note, documented as a scribe.
--- NOTE | 2024-06-23 19:03 | P.PN ---
Subjective Progress Note Date: 06/23/24 Patient is a 54-year-old white female without any significant past medical history. Her primary care provider is Dr. Roa. Chief complaint is a nonproductive congested cough and associated subjective fevers starting approximately 1 week ago. On Friday, she did go to her primary care provider and diagnosed with pneumonia. She was prescribed an oral antibiotic. Despite treatment, no improvement, and patient came to the emergency department yesterday evening. She was admitted with IV antibiotics in the form of azithromycin and Rocephin. No repeat chest x-ray has yet been performed. She is currently resting comfortably on the medical surgical unit. She is on 3 L/min nasal cannula. She is in no acute respiratory distress. She denies any significant history of chronic pulmonary disease. Does not take any inhalers at home. Denies history of tobacco use. She states that her cough is congested without sputum production. Does have associated left-sided back pain with coughing and deep breathing that developed over same time from. Denies hemoptysis. Denies history of cancer. Denies weight loss. No measured fevers while inpatient. No leukocytosis. Denies nausea, vomiting, diarrhea. She is tolerating oral intake. Also receiving normal saline at 130 mL/h. CBC: WBC count 5, hemoglobin 12.7, hematocrit 37.9, platelets 185. CMP: Sodium 139, potassium 4.4, chloride 103, serum bicarb 28, BUN 16, creatinine 0.77, glucose 106. Lactic 1. AST 74, ALT 108, ALP 171. Current vitals: Temperature 97.9 F, heart rate 93 bpm, blood pressure 99/71, respiratory rate 22 bpm, SpO2 95% on 3 L/min nasal cannula. Nontoxic appearance. On 06/22/2024, the patient is transferred to the intensive care unit. I saw this patient in consultation yesterday. I was not absolutely convinced that the patient had a pneumonia. There was some volume loss and atelectasis in the left lung base in addition to some right perihilar opacity. Based on that, I ordered a CT angiogram of the chest and the findings were quite abnormal. The patient was found to have evidence of bilateral pulmonary embolism and suspected mild RV dilatation. There was also prominent atelectasis in the left lower lobe surrounding minimal groundglass opacity. Immediately, the patient was started on IV heparin. Doppler of the lower extremity was also ordered and the patient was found to have a thrombus in the distal femoral vein on the left. Also, an echocardiogram was obtained this morning and the patient was found to have a preserved LV function with an ejection fraction of 50 to 55%. LV cavity was normal. RV size was normal and there was mild pulmonary hypertension with a PA pressure of 35. Meanwhile, the patient became progressively more hypoxic. Currently is on 15 L of oxygen by nasal cannula with a pulse ox ranging between 94 to 97%. She continues to have chest discomfort and cough and some pleurisy. The white cell count is 4.9, hemoglobin 10.8 and a platelet count of 173. The sodium is at 140, BUN is at 4 with a creatinine of 0.5. Potassium is at 3.3. Troponins are negative. Liver function tests show an alkaline phosphatase of 142, AST and ALT are both normal. Her procalcitonin level was at 0.14. She remains on IV Rocephin. Currently, she is afebrile and she is also hemodynami beatriz stable. No significant tachycardia.. On 06/23/2024, the patient is being seen for a follow-up. The patient is status post clot thrombectomy for massive pulmonary embolism and secondary hypoxemia. The patient felt significant symptomatic relief following the procedure and the patient's oxygenation is also improved. The patient is currently down to 5 L of oxygen by nasal cannula. She remains on IV heparin. Repeat chest x-ray was done this morning and there is some left lower lobe consolidation and small effusions. There is also stable right-sided pulmonary filtrates. The patient i s using the incentive spirometer. The white cell count of 5.2 with a hemoglobin 10.6 and a platelet count of 221. Electrolytes are all within normal limits. The patient is hemodynamically stable. She is still in mild degree of sinus tachycardia. No signs of any respiratory distress and oxygenation is improving and the patient is being gradually weaned off of FiO2. No pleurisy. No other new complaints otherwise for now. Objective - Vital Signs Vital signs: Vital Signs Temp 98.4 F 06/23/24 08:00 Pulse 89 06/23/24 08:00 Resp 24 06/23/24 08:00 BP 95/60 06/23/24 08:00 Pulse Ox 94 L 06/23/24 08:00 FiO2 Intake & Output 06/22/24 06/23/24 06/23/24 18:59 06:59 18:59 Intake Total 2820.509 6700 130 Output Total 800 600 0 Balance 296.160 4337 130 Weight 81.3 kg Intake: IV 350 1560 130 Sodium Chloride 0.9% 1, 1560 130 000 ml @ 130 mls/hr IV . Q7H42M [facility] Rx#:[id number] Intake, IV Titration 1359.475 130 Amount Heparin Sod,Pork in 0.45% 219.475 NaCl 25,000 unit In 0.45 % NaCl 1 250ml.bag @ 18 UNITS/KG/HR 13.064 mls/hr IV .Q19H9M [facility] Rx#: [id number] Potassium Chloride 10 meq 100 In Water For Injection 1 100ml.bag @ 100 mls/hr IVPB ONCE STA Rx#: [id number] Sodium Chloride 0.9% 1, 1040 130 000 ml @ 130 mls/hr IV . Q7H42M [facility] Rx#:[id number] Output: Urine 800 600 0 Other: Voiding Method Bedside Commode Bedside Commode Bedside Commode # Voids 1 - Exam GENERAL EXAM: Alert, 55-year-old white female, mild respiratory distress and the patient is currently on 5 L of oxygen by nasal cannula HEAD: Normocephalic and atraumatic EYES: Normal reaction of pupils, equal size. NOSE: Clear with pink turbinates. THROAT: No erythema or exudates. NECK: No masses, no JVD. CHEST: No chest wall deformity. LUNGS: Equal air entry with minimal bibasilar crackles, left sided dullness. Diminished breath sound the left lung base CVS: S1 and S2 normal with no audible murmur, regular rhythm. No extra heart sounds ABDOMEN: No hepatosplenomegaly, active bowel sounds, no guarding or rigidity. SPINE: No scoliosis or deformity SKIN: No rashes CENTRAL NERVOUS SYSTEM: No focal deficits, tone is normal in all 4 extremities. EXTREMITIES: There is no peripheral edema, clubbing, or cyanosis. Peripheral pulses are intact. - Labs CBC & Chem 7: 06/23/24 05:20 06/23/24 05:26 Labs: Abnormal Lab Results - Last 24 Hours (Table) 06/23/24 06/23/24 06/23/24 Range/Units 05:20 05:26 05:43 RBC 3.57 L (3.80-5.40) m/uL Hgb 10.6 L (11.4-16.0) gm/dL Hct 33.1 L (34.0-46.0) % Lymphocytes # 0.8 L (1.0-4.8) k/uL APTT 71.6 H (22.0-30.0) sec Chloride 108 H (98-107) mmol/L Calcium 8.0 L (8.4-10.2) mg/dL ALT 48 H (4-34) U/L Total Protein 5.1 L (6.3-8.2) g/dL Albumin 2.6 L (3.5-5.0) g/dL Microbiology - Last 24 Hours (Table) 06/20/24 16:28 Blood Culture - Preliminary Blood Assessment and Plan Assessment: Acute hypoxemic respiratory failure, on 5 L of oxygen by nasal cannula, oxygenation is improved following clot thrombectomy/Inari for massive pulmonary embolism. Acute bilateral pulmonary embolism, currently on IV heparin. Patient carries a positive family history in her mother has had history of DVT. Troponins are negative. Echocardiogram shows only mild pulm hypertension with an estimated PA pressure of 35. No significant RV dilatation. Nevertheless, the patient has developed significant hypoxemia probably due to pulm embolism and ongoing atelectatic changes in the left lung base. Pneumonia is felt to be less likely. Bibasilar atelectatic changes left more than right along with the possibility of development of a left-sided pleural effusion Left femoral DVT confirmed on ultrasound Doppler of the left lower extremity Shortness of breath secondary to above with progressive worsening in the oxygenation, improving post clot thrombectomy. Plan: Keep oxygen at 5 L/min nasal cannula, gradual wean down FiO2 as tolerated to maintain saturation above 90% Continue using incentive spirometer CT of the chest was reviewed. Echocardiogram was reviewed. Troponins are negative. Shortness of breath and hypoxemia has been improving Encouraged use of incentive spirometer Continue empiric antibiotic coverage Procalcitonin level is mildly elevated, will monitor the level Will keep the patient on IV heparin for another 24 hours and if her condition is stable, we will switch this patient to oral anticoagulants for the next 24 hours. The patient will be kept in the intensive care unit for now. Will continue to follow.
[2024-06-24 06:49] LABS: Basophils % (A) 0 %; Eosinophils # (A) 0.1 k/uL (0-0.7); Eosinophils % (A) 2 %; HCT 29.9 % (34.0-46.0); HGB 9.8 gm/dL (11.4-16.0); Lymphocytes # (A) 0.8 k/uL (1.0-4.8); Lymphocytes % (A) 17 %; MCH 29.8 pg (25.0-35.0); MCHC 32.7 g/dL (31.0-37.0); Monocytes # (A) 0.2 k/uL (0-1.0); Monocytes % (A) 4 %; Neutrophils # (A) 3.5 k/uL (1.3-7.7); Neutrophils % (A) 75 %; Platelet Count 252 k/uL (150-450); RBC 3.28 m/uL (3.80-5.40); RDW 12.6 % (11.5-15.5); WBC 4.6 k/uL (3.8-10.6)
[2024-06-24 07:09] LABS: ALT 56 U/L (4-34); AST 49 U/L (14-36); African American GFR (CKD) >90 (>60 ml/min/1.73 sqM); Albumin 2.4 g/dL (3.5-5.0); Alkaline Phosphatase 100 U/L (38-126); Anion Gap 3 mmol/L; Blood Urea Nitrogen 5 mg/dL (7-17); Calcium 7.8 mg/dL (8.4-10.2); Carbon Dioxide 28 mmol/L (22-30); Chloride 107 mmol/L (98-107); Glucose 88 mg/dL (74-99); Magnesium 1.9 mg/dL (1.6-2.3); Non-African American GFR(CKD) >90 (>60 ml/min/1.73 sqM); Potassium 3.6 mmol/L (3.5-5.1); Sodium 138 mmol/L (137-145); Total Bilirubin 0.4 mg/dL (0.2-1.3); Total Protein 4.7 g/dL (6.3-8.2)
[2024-06-24] MEDS ORDERED: Potassium Replacement Protocol 1 EACH MISC MISCELLANE PRN (07:11)
--- NOTE | 2024-06-24 07:45 | XR ---
EXAMINATION TYPE: XR chest 1V portable DATE OF EXAM: 06/24/2024 COMPARISON: 06/23/2024 CLINICAL INDICATION: Female, 54 years old with history of shortness of breath; TECHNIQUE: Single frontal view of the chest is obtained. FINDINGS: Stable basilar infiltrates and effusions. The cardiac silhouette size is within normal limi ts. The osseous structures are intact. IMPRESSION: Stable basilar infiltrates and effusions. [facility], , 06/24/2024 7:43 AM
[2024-06-24] MEDS: POTASSIUM CHLORIDE ER 20 MEQ TAB.ER PO SCH (08:37)
--- NOTE | 2024-06-24 10:27 | P.PN ---
Subjective Progress Note Date: 06/24/24 Jayleen Robbins, is a 54-year-old female who presented to [facility] emergency room with a chief complaint of cough and shortness of breath, patient presented to the office for 3 days before with similar symptoms at that time testing for influenza and COVID was negative, she was given an order for a chest x-ray which came back positive for left lower lobe infiltrate, she was given a course of cefdinir 300 mg twice daily p.o., however her condition continued to worsen and she decided to come to emergency room. She was evaluated in the emergency room vital examination on presentation re vealed a temperature of 98.7 pulse 109 respiration 18 blood pressure 93/66 pulse ox 88% on room air Laboratory data revealed a white blood count of 5.0 hemoglobin 12.7 platelet count 185 AST 74 ALT 108 alkaline phosphatase 171, influenza A and B PCR RSV PCR and COVID-19 PCR were all negative Testing in the emergency room revealed, chest x-ray done in the emergency room revealed worsening left lower lobe infiltrate, underlying mass or neoplasm not excluded. Patient was started on IV ceftriaxone and IV Zithromax and oxygen supplements, and was admitted to medical floor, pulmonary consultation was requested On 06/22/2024 patient is alert and oriented x 3. Patient remains in the intensive care unit. Patient was positive for PE and DVT started on heparin drip. Per patient's patient's mother also has history of blood clot will consult hematology services. Patient remains short of breath. Patient denies chest pain. Patient denies nausea vomiting or diarrhea. On 06/23/2024 patient is alert and oriented x 3. Patient underwent thrombectomy with vascular surgery. Patient remains in the ICU. Oxygen is down to 3 L. Patient reports some improvement. Hematology services also consulted due to concerns of family history of blood clots. Patient remains on heparin drip. Current vital signs temp 98.4, heart rate 89, respiratory rate 24, blood pressure 95/60 with a pulse ox of 94% on 3 L. Patient denies chest pain. Patient reports some shortness of breath. Patient denies any urinary burning or frequency. On 06/24/2024, patient was seen and examined in the ICU, she is alert and oriented x 3 in no apparent distress, she reports improvement in cough and shortness of breath, otherwise she denies any complaints there is no fever or chills no headache or dizziness no chest pain no palpitation no nausea or vomiting no abdominal pain no diarrhea no blood in the stools no burning with urination no frequency or urgency and no hematuria. Vital exam reveals a temperature of 98.2 pulse 93 respiration 27 blood pressure 102/63 pulse ox 89% on 2 L nasal cannula, white blood count 4.6 hemoglobin 9.8 platelet count 252 PTT 60.2 BUN 5 creatinine 0.56 patient remains on IV heparin. Pulmonary hematology cardiology and thoracic surgery are following. Objective - Vital Signs Vital signs: Vital Signs Temp 97.9 F 06/24/24 04:00 Pulse 98 06/24/24 07:00 Resp 25 H 06/24/24 07:00 BP 99/62 06/24/24 07:00 Pulse Ox 90 L 06/24/24 07:00 FiO2 Intake & Output 06/23/24 06/24/24 06/24/24 18:59 06:59 18:59 Intake Total 1680 1798.418 130 Output Total 1200 400 600 Balance 480 1398.418 -470 Weight 84 kg Intake: IV 1430 1560 130 Sodium Chloride 0.9% 1, 1430 1560 130 000 ml @ 130 mls/hr IV . Q7H42M [facility] Rx#:[id number] Intake, IV Titration 250 238.418 Amount Heparin Sod,Pork in 0.45% 250 238.418 NaCl 25,000 unit In 0.45 % NaCl 1 250ml.bag @ 18 UNITS/KG/HR 13.064 mls/hr IV .Q19H9M [facility] Rx#: [id number] Output: Urine 1200 400 600 Other: Voiding Method Toilet Toilet # Bowel Movements 1 - Exam In general patient is alert and oriented x 3 in no distress HEENT head normocephalic and atraumatic Neck is supple no JVD no goiter no lymphadenopathy no carotid bruit Chest examination reveals a scattered crackles bilaterally worse on the left no wheezing Cardiac exam reveals regular heart sounds S1 and S2 no gallops no murmurs Abdomen is soft nontender no organomegaly with normal bowel sounds Extremity exam reveals no edema no cyanosis or clubbing Neurological examination reveals no gross focal deficits - Labs CBC & Chem 7: 06/24/24 05:39 06/24/24 05:39 Labs: Abnormal Lab Results - Last 24 Hours (Table) 06/22/24 06/24/24 06/24/24 Range/Units 11:52 05:39 05:39 RBC 3.28 L (3.80-5.40) m/uL Hgb 9.8 L (11.4-16.0) gm/dL Hct 29.9 L (34.0-46.0) % Lymphocytes # 0.8 L (1.0-4.8) k/uL APTT (22.0-30.0) sec Lupus Anticoag aPTT 107 H (<43) Sec(s) Lupus Anticoag PTT Mix 72 H (<43) Sec(s) Dil Jeremy Viper Venom 48 H (<44) Sec(s) Lupus Hexagonal Phase Positive A (Negative) BUN 5 L (7-17) mg/dL Calcium 7.8 L (8.4-10.2) mg/dL AST 49 H (14-36) U/L ALT 56 H (4-34) U/L Total Protein 4.7 L (6.3-8.2) g/dL Albumin 2.4 L (3.5-5.0) g/dL 06/24/24 Range/Units 05:39 RBC (3.80-5.40) m/uL Hgb (11.4-16.0) gm/dL Hct (34.0-46.0) % Lymphocytes # (1.0-4.8) k/uL APTT 60.2 H (22.0-30.0) sec Lupus Anticoag aPTT (<43) Sec(s) Lupus Anticoag PTT Mix (<43) Sec(s) Dil Jeremy Viper Venom (<44) Sec(s) Lupus Hexagonal Phase (Negative) BUN (7-17) mg/dL Calcium (8.4-10.2) mg/dL AST (14-36) U/L ALT (4-34) U/L Total Protein (6.3-8.2) g/dL Albumin (3.5-5.0) g/dL Microbiology - Last 24 Hours (Table) 06/20/24 16:28 Blood Culture - Preliminary Blood Assessment and Plan Plan: Acute hypoxic respiratory failure Left lower lobe pneumonia, community-acquired Elevated liver enzymes Acute PE and DVT. Patient does have a family history of blood clots will consult hematology services. Status post thrombectomy. Patient yovany on heparin drip At this time patient was seen and examined Home medications reviewed Pulmonary consultation requested patient has been transferred to the intensive care unit Will continue with IV ceftriaxone and IV Zithromax For DVT prophylaxis subcu Lovenox
--- NOTE | 2024-06-24 14:05 | P.PN ---
Subjective Progress Note Date: 06/24/24 Patient is a 54-year-old white female without any significant past medical history. Her primary care provider is Dr. Roa. Chief complaint is a nonproductive congested cough and associated subjective fevers starting approximately 1 week ago. On Friday, she did go to her primary care provider and diagnosed with pneumonia. She was prescribed an oral antibiotic. Despite treatment, no improvement, and patient came to the emergency department yesterday evening. She was admitted with IV antibiotics in the form of azithromycin and Rocephin. No repeat chest x-ray has yet been performed. She is currently resting comfortably on the medical surgical unit. She is on 3 L/min nasal cannula. She is in no acute respiratory distress. She denies any significant history of chronic pulmonary disease. Does not take any inhalers at home. Denies history of tobacco use. She states that her cough is congested without sputum production. Does have associated left-sided back pain with coughing and deep breathing that developed over same time from. Denies hemoptysis. Denies history of cancer. Denies weight loss. No measured fevers while inpatient. No leukocytosis. Denies nausea, vomiting, diarrhea. She is tolerating oral intake. Also receiving normal saline at 130 mL/h. CBC: WBC count 5, hemoglobin 12.7, hematocrit 37.9, platelets 185. CMP: Sodium 139, potassium 4.4, chloride 103, serum bicarb 28, BUN 16, creatinine 0.77, glucose 106. Lactic 1. AST 74, ALT 108, ALP 171. Current vitals: Temperature 97.9 F, heart rate 93 bpm, blood pressure 99/71, respiratory rate 22 bpm, SpO2 95% on 3 L/min nasal cannula. Nontoxic appearance. On 06/22/2024, the patient is transferred to the intensive care unit. I saw this patient in consultation yesterday. I was not absolutely convinced that the patient had a pneumonia. There was some volume loss and atelectasis in the left lung base in addition to some right perihilar opacity. Based on that, I ordered a CT angiogram of the chest and the findings were quite abnormal. The patient was found to have evidence of bilateral pulmonary embolism and suspected mild RV dilatation. There was also prominent atelectasis in the left lower lobe surrounding minimal groundglass opacity. Immediately, the patient was started on IV heparin. Doppler of the lower extremity was also ordered and the patient was found to have a thrombus in the distal femoral vein on the left. Also, an echocardiogram was obtained this morning and the patient was found to have a preserved LV function with an ejection fraction of 50 to 55%. LV cavity was normal. RV size was normal and there was mild pulmonary hypertension with a PA pressure of 35. Meanwhile, the patient became progressively more hypoxic. Currently is on 15 L of oxygen by nasal cannula with a pulse ox ranging between 94 to 97%. She continues to have chest discomfort and cough and some pleurisy. The white cell count is 4.9, hemoglobin 10.8 and a platelet count of 173. The sodium is at 140, BUN is at 4 with a creatinine of 0.5. Potassium is at 3.3. Troponins are negative. Liver function tests show an alkaline phosphatase of 142, AST and ALT are both normal. Her procalcitonin level was at 0.14. She remains on IV Rocephin. Currently, she is afebrile and she is also hemodynami beatriz stable. No significant tachycardia.. On 06/23/2024, the patient is being seen for a follow-up. The patient is status post clot thrombectomy for massive pulmonary embolism and secondary hypoxemia. The patient felt significant symptomatic relief following the procedure and the patient's oxygenation is also improved. The patient is currently down to 5 L of oxygen by nasal cannula. She remains on IV heparin. Repeat chest x-ray was done this morning and there is some left lower lobe consolidation and small effusions. There is also stable right-sided pulmonary filtrates. The patient i s using the incentive spirometer. The white cell count of 5.2 with a hemoglobin 10.6 and a platelet count of 221. Electrolytes are all within normal limits. The patient is hemodynamically stable. She is still in mild degree of sinus tachycardia. No signs of any respiratory distress and oxygenation is improving and the patient is being gradually weaned off of FiO2. No pleurisy. No other new complaints otherwise for now. On 06/24/2024, the patient is being seen for a follow-up., Comfortable. Continues to have some cough and congestion. Oxygenation has improved and the patient has been weaned down to 2 L of oxygen by nasal cannula. Repeat chest x- ray was done and the patient continues to have stable bilateral basilar infiltrates and effusions. The patient remains on IV heparin. No chest pain. No pleurisy. The patient is using incentive spirometer and she is pulling approximately 1000. IV fluids are still at rate of 130 cc an hour of normal saline. The white cell count of 4.6, hemoglobin 10.8 and platelet count of 252. BUN is 5 creatinine 0.56 and a sodium levels at 138. Objective - Vital Signs Vital signs: Vital Signs Temp 98.2 F 06/24/24 08:00 Pulse 87 06/24/24 10:00 Resp 23 06/24/24 10:00 BP 127/80 06/24/24 10:00 Pulse Ox 92 L 06/24/24 09:00 FiO2 Intake & Output 06/23/24 06/24/24 06/24/24 18:59 06:59 18:59 Intake Total 1680 1798.418 610 Output Total 3027 532 8130 Balance 480 1398.418 -540 Weight 84 kg Intake: IV 1430 1560 360 Sodium Chloride 0.9% 1, 1430 1560 260 000 ml @ 130 mls/hr IV . Q7H42M PETR Rx#:[id number] cefTRIAXone 2 gm In 100 Sodium Chloride 0.9% 50 ml @ 100 mls/hr IVPB Q24HR PETR Rx#:[id number] Intake, IV Titration 250 238.418 Amount Heparin Sod,Pork in 0.45% 250 238.418 NaCl 25,000 unit In 0.45 % NaCl 1 250ml.bag @ 18 UNITS/KG/HR 13.064 mls/hr IV .Q19H9M PETR Rx#: [id number] Oral 250 Output: Urine 7448 589 1785 Other: Voiding Method Toilet Toilet # Voids 1 # Bowel Movements 1 - Exam GENERAL EXAM: Alert, 55-year-old white female, mild respiratory distress and the patient is currently on 2 L of oxygen by nasal cannula HEAD: Normocephalic and atraumatic EYES: Normal reaction of pupils, equal size. NOSE: Clear with pink turbinates. THROAT: No erythema or exudates. NECK: No masses, no JVD. CHEST: No chest wall deformity. LUNGS: Equal air entry with minimal bibasilar crackles, left sided dullness. Diminished breath sound the left lung base CVS: S1 and S2 normal with no audible murmur, regular rhythm. No extra heart sounds ABDOMEN: No hepatosplenomegaly, active bowel sounds, no guarding or rigidity. SPINE: No scoliosis or deformity SKIN: No rashes CENTRAL NERVOUS SYSTEM: No focal deficits, tone is normal in all 4 extremities. EXTREMITIES: There is no peripheral edema, clubbing, or cyanosis. Peripheral pulses are intact. - Labs CBC & Chem 7: 06/24/24 05:39 06/24/24 05:39 Labs: Abnormal Lab Results - Last 24 Hours (Table) 06/22/24 06/24/24 06/24/24 Range/Units 11:52 05:39 05:39 RBC 3.28 L (3.80-5.40) m/uL Hgb 9.8 L (11.4-16.0) gm/dL Hct 29.9 L (34.0-46.0) % Lymphocytes # 0.8 L (1.0-4.8) k/uL APTT (22.0-30.0) sec Lupus Anticoag aPTT 107 H (<43) Sec(s) Lupus Anticoag PTT Mix 72 H (<43) Sec(s) Dil Jeremy Viper Venom 48 H (<44) Sec(s) Lupus Hexagonal Phase Positive A (Negative) BUN 5 L (7-17) mg/dL Calcium 7.8 L (8.4-10.2) mg/dL AST 49 H (14-36) U/L ALT 56 H (4-34) U/L Total Protein 4.7 L (6.3-8.2) g/dL Albumin 2.4 L (3.5-5.0) g/dL 06/24/24 Range/Units 05:39 RBC (3.80-5.40) m/uL Hgb (11.4-16.0) gm/dL Hct (34.0-46.0) % Lymphocytes # (1.0-4.8) k/uL APTT 60.2 H (22.0-30.0) sec Lupus Anticoag aPTT (<43) Sec(s) Lupus Anticoag PTT Mix (<43) Sec(s) Dil Jeremy Viper Venom (<44) Sec(s) Lupus Hexagonal Phase (Negative) BUN (7-17) mg/dL Calcium (8.4-10.2) mg/dL AST (14-36) U/L ALT (4-34) U/L Total Protein (6.3-8.2) g/dL Albumin (3.5-5.0) g/dL Microbiology - Last 24 Hours (Table) 06/20/24 16:28 Blood Culture - Preliminary Blood Assessment and Plan Assessment: Acute hypoxemic respiratory failure, on 2 L of oxygen by nasal cannula, oxygenation is improved following clot thrombectomy/Inari for massive pulmonary embolism. Acute bilateral pulmonary embolism, currently on IV heparin. Patient carries a positive family history in her mother has had history of DVT. Troponins are negative. Echocardiogram shows only mild pulm hypertension with an estimated PA pressure of 35. No significant RV dilatation. Nevertheless, the patient has developed significant hypoxemia probably due to pulm embolism and ongoing atelectatic changes in the left lung base. Pneumonia is felt to be less likely. The chest x-ray from today continues to show some atelectatic changes in lung bases and possibly some small effusions Bibasilar atelectatic changes left more than right along with the possibility of development of a left-sided pleural effusion Left femoral DVT confirmed on ultrasound Doppler of the left lower extremity Shortness of breath secondary to above with progressive worsening in the oxygenation, improving post clot thrombectomy. Plan: Keep oxygen at 2 L/min nasal cannula, gradual wean down FiO2 as tolerated to maintain saturation above 90% Continue using incentive spirometer CT of the chest was reviewed. Echocardiogram was reviewed. Troponins are negative. Shortness of breath and hypoxemia has been improving Encouraged use of incentive spirometer Continue empiric antibiotic coverage Procalcitonin level is mildly elevated, will monitor the level Change IV fluids to KVO Gave the patient Lasix 40 mg IV push x 2 doses Will keep the patient on IV heparin for another 24 hours and if her condition is stable, we will switch this patient to oral anticoagulants for the next 24 hours. The patient can be transferred out of the intensive care unit Will continue to follow.
--- NOTE | 2024-06-24 15:32 | P.PN ---
Subjective Progress Note Date: 06/24/24 Principal diagnosis: PE/DVT Pt sitting up in chair, feels much improved. On O2 2 L NC.No obv bleeding Objective - Vital Signs Vital signs: Vital Signs Temp 98.2 F 06/24/24 08:00 Pulse 99 06/24/24 12:00 Resp 30 H 06/24/24 12:00 BP 108/76 06/24/24 12:00 Pulse Ox 93 L 06/24/24 11:00 FiO2 Intake & Output 06/23/24 06/24/24 06/24/24 18:59 06:59 18:59 Intake Total 1680 1798.418 610 Output Total 2133 139 6360 Balance 480 1398.418 -540 Weight 84 kg Intake: IV 1430 1560 360 Sodium Chloride 0.9% 1, 1430 1560 260 000 ml @ 130 mls/hr IV . Q7H42M PETR Rx#:[id number] cefTRIAXone 2 gm In 100 Sodium Chloride 0.9% 50 ml @ 100 mls/hr IVPB Q24HR PETR Rx#:[id number] Intake, IV Titration 250 238.418 Amount Heparin Sod,Pork in 0.45% 250 238.418 NaCl 25,000 unit In 0.45 % NaCl 1 250ml.bag @ 18 UNITS/KG/HR 13.064 mls/hr IV .Q19H9M PETR Rx#: [id number] Oral 250 Output: Urine 4568 471 2927 Other: Voiding Method Toilet Toilet Toilet # Voids 1 # Bowel Movements 1 - Constitutional General appearance: Present: no acute distress - EENT Eyes: Present: EOMI ENT: Present: hearing grossly normal, normal oropharynx - Neck Neck: Present: normal ROM - Respiratory Respiratory: bilateral: CTA - Cardiovascular Rhythm: regular Heart sounds: normal: S1, S2 - Gastrointestinal General gastrointestinal: Present: normal bowel sounds, soft - Integumentary Integumentary: Present: normal - Neurologic Neurologic: Present: CNII-XII intact - Musculoskeletal Musculoskeletal: Present: generalized weakness, strength equal bilaterally - Psychiatric Psychiatric: Present: A&O x's 3, appropriate affect - Labs CBC & Chem 7: 06/24/24 05:39 06/24/24 05:39 Labs: Abnormal Lab Results - Last 24 Hours (Table) 06/24/24 06/24/24 06/24/24 Range/Units 05:39 05:39 05:39 RBC 3.28 L (3.80-5.40) m/uL Hgb 9.8 L (11.4-16.0) gm/dL Hct 29.9 L (34.0-46.0) % Lymphocytes # 0.8 L (1.0-4.8) k/uL APTT 60.2 H (22.0-30.0) sec BUN 5 L (7-17) mg/dL Calcium 7.8 L (8.4-10.2) mg/dL AST 49 H (14-36) U/L ALT 56 H (4-34) U/L Total Protein 4.7 L (6.3-8.2) g/dL Albumin 2.4 L (3.5-5.0) g/dL Microbiology - Last 24 Hours (Table) 06/20/24 16:28 Blood Culture - Preliminary Blood Assessment and Plan (1) Bilateral pulmonary embolism Narrative/Plan: Pt improved s/p thrombectomy. On IV AC. - Only soft provoking factors- prob need to consider termination clerk AC. - APL ab testing neg for cardiolipin ab. Lupus AC +ve but non specific in a pt on anticoagulation in the absence of other ab positivity. Therefore OK to change to DOAC once felt to be stable per Pulm/IM - Additional hypercoag testing as outpt Current Visit: Yes Status: Acute Priority: High Code(s): I26.99 - OTHER P ULMONARY EMBOLISM WITHOUT ACUTE COR PULMONALE SNOMED Code(s): 25301442 (2) DVT (deep venous thrombosis) Narrative/Plan: As above Current Visit: Yes Status: Acute Priority: High Code(s): I82.409 - ACUTE EMBOLISM AND THOMBOS UNSP DEEP VN UNSP LOWER EXTREMITY SNOMED Code(s): 419187391
[2024-06-24] MEDS: FUROSEMIDE 10 MG/ML 4 ML VIAL IV SCH (16:01)
[2024-06-24] MEDS: guaiFENesin 600 MG TABLET.ER PO SCH (20:42)
[2024-06-25 06:40] LABS: ALT 87 U/L (4-34); AST 75 U/L (14-36); African American GFR (CKD) >90 (>60 ml/min/1.73 sqM); Alkaline Phosphatase 130 U/L (38-126); Anion Gap 1 mmol/L; Blood Urea Nitrogen 10 mg/dL (7-17); Calcium 8.3 mg/dL (8.4-10.2); Carbon Dioxide 35 mmol/L (22-30); Chloride 101 mmol/L (98-107); Glucose 106 mg/dL (74-99); Non-African American GFR(CKD) >90 (>60 ml/min/1.73 sqM); Potassium 3.3 mmol/L (3.5-5.1); Sodium 137 mmol/L (137-145); Total Bilirubin 0.5 mg/dL (0.2-1.3); Total Protein 5.7 g/dL (6.3-8.2)
[2024-06-25 07:34] LABS: Basophils # (A) 0.1 k/uL (0-0.2); Basophils % (A) 1 %; Eosinophils # (A) 0.1 k/uL (0-0.7); Eosinophils % (A) 2 %; HCT 31.7 % (34.0-46.0); HGB 10.3 gm/dL (11.4-16.0); Lymphocytes # (A) 0.7 k/uL (1.0-4.8); Lymphocytes % (A) 11 %; MCH 29.7 pg (25.0-35.0); MCHC 32.5 g/dL (31.0-37.0); MCV 91.5 fL (80.0-100.0); Mean Platelet Volume 7.6; Monocytes # (A) 0.3 k/uL (0-1.0); Monocytes % (A) 4 %; Neutrophils % (A) 80 %; Platelet Count 303 k/uL (150-450); RBC 3.47 m/uL (3.80-5.40); RDW 12.6 % (11.5-15.5); WBC 6.3 k/uL (3.8-10.6)
--- NOTE | 2024-06-25 08:36 | XR ---
EXAMINATION TYPE: XR chest 1V portable DATE OF EXAM: 06/25/2024 COMPARISON: 06/24/2024 CLINICAL INDICATION: Female, 54 years old with history of shortness of breath; , TECHNIQUE: XR chest 1V portable views of the chest. FINDINGS: Bilateral lower lobe consolidation and small effusion with left perihilar infiltrate. Underlying mass not excluded. There is interval improvement in the amount of pleural fluid. There is no pneumothorax . Osseous structures demonstrate a scoliosis. Heart size normal. IMPRESSION: 1. Interval improvement with reduction of pleural fluid. Persistent lower lobe consolidation and smal l effusions. 2. Left perihilar area of consolidation more localized follow-up to resolution recommended to exclude underlying neoplasm. [facility], , 06/25/2024 8:34 AM
--- NOTE | 2024-06-25 10:01 | P.PN ---
Progress Note - Text Progress Note Date: 06/25/24 Subjective: Patient seen and examined at bedside. She is doing well and her breathing has improved significantly. She is only on 2 L of O2. Objective: Vital signs stable No acute distress, alert and oriented x 3 No retractions, clear to auscultation Right groin clean, dry and intact. No hematoma Assessment: 1. Bilateral pulmonary embolism with mild right heart strain status post percutaneous thrombectomy 2. Pneumonia 3. Acute hypoxic respiratory failure secondary to 1 and 2 above 4. Left lower extremity deep vein thrombosis Plan: Follow-up in the office in 2 to 4 weeks Agree with transition to oral anticoagulation Okay to discharge from a vascular standpoint once medically cleared.
--- NOTE | 2024-06-25 10:02 | P.PN ---
Subjective Progress Note Date: 06/25/24 Jayleen Robbins, is a 54-year-old female who presented to [facility] emergency room with a chief complaint of cough and shortness of breath, patient presented to the office for 3 days before with similar symptoms at that time testing for influenza and COVID was negative, she was given an order for a chest x-ray which came back positive for left lower lobe infiltrate, she was given a course of cefdinir 300 mg twice daily p.o., however her condition continued to worsen and she decided to come to emergency room. She was evaluated in the emergency room vital examination on presentation re vealed a temperature of 98.7 pulse 109 respiration 18 blood pressure 93/66 pulse ox 88% on room air Laboratory data revealed a white blood count of 5.0 hemoglobin 12.7 platelet count 185 AST 74 ALT 108 alkaline phosphatase 171, influenza A and B PCR RSV PCR and COVID-19 PCR were all negative Testing in the emergency room revealed, chest x-ray done in the emergency room revealed worsening left lower lobe infiltrate, underlying mass or neoplasm not excluded. Patient was started on IV ceftriaxone and IV Zithromax and oxygen supplements, and was admitted to medical floor, pulmonary consultation was requested On 06/22/2024 patient is alert and oriented x 3. Patient remains in the intensive care unit. Patient was positive for PE and DVT started on heparin drip. Per patient's patient's mother also has history of blood clot will consult hematology services. Patient remains short of breath. Patient denies chest pain. Patient denies nausea vomiting or diarrhea. On 06/23/2024 patient is alert and oriented x 3. Patient underwent thrombectomy with vascular surgery. Patient remains in the ICU. Oxygen is down to 3 L. Patient reports some improvement. Hematology services also consulted due to concerns of family history of blood clots. Patient remains on heparin drip. Current vital signs temp 98.4, heart rate 89, respiratory rate 24, blood pressure 95/60 with a pulse ox of 94% on 3 L. Patient denies chest pain. Patient reports some shortness of breath. Patient denies any urinary burning or frequency. On 06/24/2024, patient was seen and examined in the ICU, she is alert and oriented x 3 in no apparent distress, she reports improvement in cough and shortness of breath, otherwise she denies any complaints there is no fever or chills no headache or dizziness no chest pain no palpitation no nausea or vomiting no abdominal pain no diarrhea no blood in the stools no burning with urination no frequency or urgency and no hematuria. Vital exam reveals a temperature of 98.2 pulse 93 respiration 27 blood pressure 102/63 pulse ox 89% on 2 L nasal cannula, white blood count 4.6 hemoglobin 9.8 platelet count 252 PTT 60.2 BUN 5 creatinine 0.56 patient remains on IV heparin. Pulmonary hematology cardiology and thoracic surgery are following. On 06/25/2024 patient has been transferred out of the intensive care unit on stepdown. Patient remains on heparin drip awaiting oncology and pulmonary services recommendation for anticoagulation. Patient feels improved. Patient is alert and oriented x 3. Current vital signs temp 98.2, heart rate 98, respiratory rate 16, blood pressure 95/61 with a pulse ox of 93% on 2 L. Patient denies chest pain. Patient denies nausea vomiting or diarrhea. Patient denies any urinary burning or frequency. Objective - Vital Signs Vital signs: Vital Signs Temp 98.2 F 06/25/24 04:00 Pulse 98 06/25/24 04:00 Resp 16 06/25/24 04:00 BP 95/61 06/25/24 04:00 Pulse Ox 93 L 06/25/24 04:00 FiO2 Intake & Output 06/24/24 06/25/24 06/25/24 18:59 06:59 18:59 Intake Total 610 250 Output Total 1150 400 350 Balance -540 -150 -350 Weight 77.6 kg Intake: IV 360 Sodium Chloride 0.9% 1, 260 000 ml @ 5 mls/hr IV . Q24H PETR Rx#:[id number] cefTRIAXone 2 gm In 100 Sodium Chloride 0.9% 50 ml @ 100 mls/hr IVPB Q24HR PETR Rx#:[id number] Intake, IV Titration 250 Amount Heparin Sod,Pork in 0.45% 250 NaCl 25,000 unit In 0.45 % NaCl 1 250ml.bag @ 18 UNITS/KG/HR 13.064 mls/hr IV .Q19H9M PETR Rx#: [id number] Oral 250 Output: Urine 1150 400 350 Other: Voiding Method Toilet Toilet # Voids 1 1 - Exam In general patient is alert and oriented x 3 in no distress HEENT head normocephalic and atraumatic Neck is supple no JVD no goiter no lymphadenopathy no carotid bruit Chest examination reveals a scattered crackles bilaterally worse on the left no wheezing Cardiac exam reveals regular heart sounds S1 and S2 no gallops no murmurs Abdomen is soft nontender no organomegaly with normal bowel sounds Extremity exam reveals no edema no cyanosis or clubbing Neurological examination reveals no gross focal deficits - Labs CBC & Chem 7: 06/25/24 05:47 06/25/24 05:47 Labs: Abnormal Lab Results - Last 24 Hours (Table) 06/25/24 06/25/24 06/25/24 Range/Units 05:47 05:47 05:47 RBC 3.47 L (3.80-5.40) m/uL Hgb 10.3 L (11.4-16.0) gm/dL Hct 31.7 L (34.0-46.0) % Lymphocytes # 0.7 L (1.0-4.8) k/uL APTT 53.3 H (22.0-30.0) sec Potassium 3.3 L (3.5-5.1) mmol/L Carbon Dioxide 35 H (22-30) mmol/L Glucose 106 H (74-99) mg/dL Calcium 8.3 L (8.4-10.2) mg/dL AST 75 H (14-36) U/L ALT 87 H (4-34) U/L Alkaline Phosphatase 130 H (38-126) U/L Total Protein 5.7 L (6.3-8.2) g/dL Albumin 3.0 L (3.5-5.0) g/dL Assessment and Plan Plan: Acute hypoxic respiratory failure Left lower lobe pneumonia, community-acquired Elevated liver enzymes Acute PE and DVT. Patient does have a family history of blood clots will consult hematology services. Status post thrombectomy. Patient yovany on heparin drip At this time patient was seen and examined Home medications reviewed Pulmonary consultation requested patient has been transferred to the intensive care unit Will continue with IV ceftriaxone and IV Zithromax For DVT prophylaxis subcu Lovenox
[2024-06-25] MEDS: Apixaban Initiation Dose--VTE 5 MG TAB PO SCH (13:03)
--- NOTE | 2024-06-25 17:31 | P.PN ---
Subjective Progress Note Date: 06/25/24 Patient is a 54-year-old white female without any significant past medical history. Her primary care provider is Dr. Roa. Chief complaint is a nonproductive congested cough and associated subjective fevers starting approximately 1 week ago. On Friday, she did go to her primary care provider and diagnosed with pneumonia. She was prescribed an oral antibiotic. Despite treatment, no improvement, and patient came to the emergency department yesterday evening. She was admitted with IV antibiotics in the form of azithromycin and Rocephin. No repeat chest x-ray has yet been performed. She is currently resting comfortably on the medical surgical unit. She is on 3 L/min nasal cannula. She is in no acute respiratory distress. She denies any significant history of chronic pulmonary disease. Does not take any inhalers at home. Denies history of tobacco use. She states that her cough is congested without sputum production. Does have associated left-sided back pain with coughing and deep breathing that developed over same time from. Denies hemoptysis. Denies history of cancer. Denies weight loss. No measured fevers while inpatient. No leukocytosis. Denies nausea, vomiting, diarrhea. She is tolerating oral intake. Also receiving normal saline at 130 mL/h. CBC: WBC count 5, hemoglobin 12.7, hematocrit 37.9, platelets 185. CMP: Sodium 139, potassium 4.4, chloride 103, serum bicarb 28, BUN 16, creatinine 0.77, glucose 106. Lactic 1. AST 74, ALT 108, ALP 171. Current vitals: Temperature 97.9 F, heart rate 93 bpm, blood pressure 99/71, respiratory rate 22 bpm, SpO2 95% on 3 L/min nasal cannula. Nontoxic appearance. On 06/22/2024, the patient is transferred to the intensive care unit. I saw this patient in consultation yesterday. I was not absolutely convinced that the patient had a pneumonia. There was some volume loss and atelectasis in the left lung base in addition to some right perihilar opacity. Based on that, I ordered a CT angiogram of the chest and the findings were quite abnormal. The patient was found to have evidence of bilateral pulmonary embolism and suspected mild RV dilatation. There was also prominent atelectasis in the left lower lobe surrounding minimal groundglass opacity. Immediately, the patient was started on IV heparin. Doppler of the lower extremity was also ordered and the patient was found to have a thrombus in the distal femoral vein on the left. Also, an echocardiogram was obtained this morning and the patient was found to have a preserved LV function with an ejection fraction of 50 to 55%. LV cavity was normal. RV size was normal and there was mild pulmonary hypertension with a PA pressure of 35. Meanwhile, the patient became progressively more hypoxic. Currently is on 15 L of oxygen by nasal cannula with a pulse ox ranging between 94 to 97%. She continues to have chest discomfort and cough and some pleurisy. The white cell count is 4.9, hemoglobin 10.8 and a platelet count of 173. The sodium is at 140, BUN is at 4 with a creatinine of 0.5. Potassium is at 3.3. Troponins are negative. Liver function tests show an alkaline phosphatase of 142, AST and ALT are both normal. Her procalcitonin level was at 0.14. She remains on IV Rocephin. Currently, she is afebrile and she is also hemodynami beatriz stable. No significant tachycardia.. On 06/23/2024, the patient is being seen for a follow-up. The patient is status post clot thrombectomy for massive pulmonary embolism and secondary hypoxemia. The patient felt significant symptomatic relief following the procedure and the patient's oxygenation is also improved. The patient is currently down to 5 L of oxygen by nasal cannula. She remains on IV heparin. Repeat chest x-ray was done this morning and there is some left lower lobe consolidation and small effusions. There is also stable right-sided pulmonary filtrates. The patient i s using the incentive spirometer. The white cell count of 5.2 with a hemoglobin 10.6 and a platelet count of 221. Electrolytes are all within normal limits. The patient is hemodynamically stable. She is still in mild degree of sinus tachycardia. No signs of any respiratory distress and oxygenation is improving and the patient is being gradually weaned off of FiO2. No pleurisy. No other new complaints otherwise for now. On 06/24/2024, the patient is being seen for a follow-up., Comfortable. Continues to have some cough and congestion. Oxygenation has improved and the patient has been weaned down to 2 L of oxygen by nasal cannula. Repeat chest x- ray was done and the patient continues to have stable bilateral basilar infiltrates and effusions. The patient remains on IV heparin. No chest pain. No pleurisy. The patient is using incentive spirometer and she is pulling approximately 1000. IV fluids are still at rate of 130 cc an hour of normal saline. The white cell count of 4.6, hemoglobin 10.8 and platelet count of 252. BUN is 5 creatinine 0.56 and a sodium levels at 138. On 06/25/2024, the patient is feeling well. She is currently on 2 L of oxygen nasal cannula with a pulse ox of 93%. She remains on IV heparin. A follow-up chest x-ray was done and there is interval improvement with a reduction of the pleural fluid and there is some persistent lower lobe consolidation with possibly a small left-sided pleural effusion and left perihilar consolidation. Chest x-ray findings are stable and improved. The white cell count is 6.3 with a hemoglobin 10.3 and a platelet count of 303. BUN is 10 with a creatinine of 0.6 and a sodium levels at 137. The patient is on IV fluids at KVO. Using incentive spirometer. Continues to have episodes of cough especially when taking a deep breath. No other new complaints otherwise for now. Objective - Vital Signs Vital signs: Vital Signs Temp 98.1 F 06/25/24 16:45 Pulse 95 06/25/24 16:45 Resp 18 06/25/24 16:45 BP 90/54 06/25/24 16:45 Pulse Ox 93 L 06/25/24 16:45 FiO2 Intake & Output 06/24/24 06/25/24 06/25/24 18:59 06:59 18:59 Intake Total 610 250 Output Total 1150 400 350 Balance -540 -150 -350 Weight 77.6 kg Intake: IV 360 Sodium Chloride 0.9% 1, 260 000 ml @ 5 mls/hr IV . Q24H PETR Rx#:[id number] cefTRIAXone 2 gm In 100 Sodium Chloride 0.9% 50 ml @ 100 mls/hr IVPB Q24HR PETR Rx#:[id number] Intake, IV Titration 250 Amount Heparin Sod,Pork in 0.45% 250 NaCl 25,000 unit In 0.45 % NaCl 1 250ml.bag @ 18 UNITS/KG/HR 13.064 mls/hr IV .Q19H9M PETR Rx#: [id number] Oral 250 Output: Urine 1150 400 350 Other: Voiding Method Toilet Toilet Toilet # Voids 1 1 - Exam GENERAL EXAM: Alert, 55-year-old white female, mild respiratory distress and the patient is currently on 2 L of oxygen by nasal cannula HEAD: Normocephalic and atraumatic EYES: Normal reaction of pupils, equal size. NOSE: Clear with pink turbinates. THROAT: No erythema or exudates. NECK: No masses, no JVD. CHEST: No chest wall deformity. LUNGS: Equal air entry with minimal bibasilar crackles, left sided dullness. Diminished breath sound the left lung base CVS: S1 and S2 normal with no audible murmur, regular rhythm. No extra heart sounds ABDOMEN: No hepatosplenomegaly, active bowel sounds, no guarding or rigidity. SPINE: No scoliosis or deformity SKIN: No rashes CENTRAL NERVOUS SYSTEM: No focal deficits, tone is normal in all 4 extremities. EXTREMITIES: There is no peripheral edema, clubbing, or cyanosis. Peripheral pulses are intact. - Labs CBC & Chem 7: 06/25/24 05:47 06/25/24 05:47 Labs: Abnormal Lab Results - Last 24 Hours (Table) 06/25/24 06/25/24 06/25/24 Range/Units 05:47 05:47 05:47 RBC 3.47 L (3.80-5.40) m/uL Hgb 10.3 L (11.4-16.0) gm/dL Hct 31.7 L (34.0-46.0) % Lymphocytes # 0.7 L (1.0-4.8) k/uL APTT 53.3 H (22.0-30.0) sec Potassium 3.3 L (3.5-5.1) mmol/L Carbon Dioxide 35 H (22-30) mmol/L Glucose 106 H (74-99) mg/dL Calcium 8.3 L (8.4-10.2) mg/dL AST 75 H (14-36) U/L ALT 87 H (4-34) U/L Alkaline Phosphatase 130 H (38-126) U/L Total Protein 5.7 L (6.3-8.2) g/dL Albumin 3.0 L (3.5-5.0) g/dL Assessment and Plan Assessment: Acute hypoxemic respiratory failure, on 2 L of oxygen by nasal cannula, oxygenation is improved following clot thrombectomy/Inari for massive pulmonary embolism. The patient remains on IV heparin. Using incentive spirometer. Acute bilateral pulmonary embolism, currently on IV heparin. Patient carries a positive family history in her mother has had history of DVT. Troponins are negative. Echocardiogram shows only mild pulm hypertension with an estimated PA pressure of 35. No significant RV dilatation. Nevertheless, the patient has developed significant hypoxemia probably due to pulm embolism and ongoing atelectatic changes in the left lung base. Pneumonia is felt to be less likely. The chest x-ray from today shows improvement in aeration of the lung bases. Improvement in the pleural effusion and the patient has some atelectatic changes specially in the left lung base. Bibasilar atelectatic changes left more than right along with the possibility of development of a left-sided pleural effusion Left femoral DVT confirmed on ultrasound Doppler of the left lower extremity Shortness of breath secondary to above with progressive worsening in the oxygenation, improving post clot thrombectomy. Plan: Keep oxygen at 2 L/min nasal cannula, gradual wean down FiO2 as tolerated to maintain saturation above 90% Continue using incentive spirometer CT of the chest was reviewed. Echocardiogram was reviewed. Troponins are negative. Shortness of breath and hypoxemia has been improving and the patient is currently on 2 L O2 nasal cannula Encouraged use of incentive spirometer Completed a course of IV Rocephin Procalcitonin level is mildly elevated, Change IV fluids to KVO Discontinued IV heparin and start the patient on anticoagulation with Eliquis per protocol Increase mobility and activity Repeat chest x-ray in the morning Will continue to follow.
--- NOTE | 2024-06-26 07:24 | XR ---
EXAMINATION TYPE: XR chest 1V DATE OF EXAM: 06/26/2024 COMPARISON: 06/25/2024 CLINICAL INDICATION: Female, 54 years old with history of Pulmonary embolism; TECHNIQUE: Single frontal view of the chest is obtained. FINDINGS: There is increasing opacification in the left lung base likely a combination of pneumonia and/or atel ectasis and small left effusion. The right lung is clear. There is no pneumothorax. The heart and pulmonary vasculature are normal. The osseous structures are intact IMPRESSION: Increasing acute cardiopulmonary process in the left lung base as described above. [facility], , 06/26/2024 7:22 AM
[2024-06-26 07:56] LABS: Basophils % (A) 1 %; Eosinophils # (A) 0.1 k/uL (0-0.7); Eosinophils % (A) 2 %; HCT 31.5 % (34.0-46.0); HGB 10.2 gm/dL (11.4-16.0); Hypochromasia Slight; Lymphocytes # (A) 0.7 k/uL (1.0-4.8); Lymphocytes % (A) 11 %; MCH 29.9 pg (25.0-35.0); MCHC 32.3 g/dL (31.0-37.0); MCV 92.5 fL (80.0-100.0); Mean Platelet Volume 7.4; Monocytes # (A) 0.3 k/uL (0-1.0); Monocytes % (A) 5 %; Neutrophils # (A) 4.9 k/uL (1.3-7.7); Neutrophils % (A) 80 %; Platelet Count 307 k/uL (150-450); RDW 12.8 % (11.5-15.5); WBC 6.2 k/uL (3.8-10.6)
[2024-06-26 08:01] LABS: ALT 141 U/L (4-34); AST 130 U/L (14-36); African American GFR (CKD) >90 (>60 ml/min/1.73 sqM); Alkaline Phosphatase 142 U/L (38-126); Anion Gap 1 mmol/L; Blood Urea Nitrogen 9 mg/dL (7-17); Calcium 8.6 mg/dL (8.4-10.2); Carbon Dioxide 36 mmol/L (22-30); Chloride 101 mmol/L (98-107); Glucose 97 mg/dL (74-99); Non-African American GFR(CKD) >90 (>60 ml/min/1.73 sqM); Potassium 3.7 mmol/L (3.5-5.1); Sodium 138 mmol/L (137-145); Total Bilirubin 0.5 mg/dL (0.2-1.3); Total Protein 5.7 g/dL (6.3-8.2)
--- NOTE | 2024-06-26 12:08 | P.PN ---
Subjective Progress Note Date: 06/26/24 Jayleen Robbins, is a 54-year-old female who presented to [facility] emergency room with a chief complaint of cough and shortness of breath, patient presented to the office for 3 days before with similar symptoms at that time testing for influenza and COVID was negative, she was given an order for a chest x-ray which came back positive for left lower lobe infiltrate, she was given a course of cefdinir 300 mg twice daily p.o., however her condition continued to worsen and she decided to come to emergency room. She was evaluated in the emergency room vital examination on presentation re vealed a temperature of 98.7 pulse 109 respiration 18 blood pressure 93/66 pulse ox 88% on room air Laboratory data revealed a white blood count of 5.0 hemoglobin 12.7 platelet count 185 AST 74 ALT 108 alkaline phosphatase 171, influenza A and B PCR RSV PCR and COVID-19 PCR were all negative Testing in the emergency room revealed, chest x-ray done in the emergency room revealed worsening left lower lobe infiltrate, underlying mass or neoplasm not excluded. Patient was started on IV ceftriaxone and IV Zithromax and oxygen supplements, and was admitted to medical floor, pulmonary consultation was requested On 06/22/2024 patient is alert and oriented x 3. Patient remains in the intensive care unit. Patient was positive for PE and DVT started on heparin drip. Per patient's patient's mother also has history of blood clot will consult hematology services. Patient remains short of breath. Patient denies chest pain. Patient denies nausea vomiting or diarrhea. On 06/23/2024 patient is alert and oriented x 3. Patient underwent thrombectomy with vascular surgery. Patient remains in the ICU. Oxygen is down to 3 L. Patient reports some improvement. Hematology services also consulted due to concerns of family history of blood clots. Patient remains on heparin drip. Current vital signs temp 98.4, heart rate 89, respiratory rate 24, blood pressure 95/60 with a pulse ox of 94% on 3 L. Patient denies chest pain. Patient reports some shortness of breath. Patient denies any urinary burning or frequency. On 06/24/2024, patient was seen and examined in the ICU, she is alert and oriented x 3 in no apparent distress, she reports improvement in cough and shortness of breath, otherwise she denies any complaints there is no fever or chills no headache or dizziness no chest pain no palpitation no nausea or vomiting no abdominal pain no diarrhea no blood in the stools no burning with urination no frequency or urgency and no hematuria. Vital exam reveals a temperature of 98.2 pulse 93 respiration 27 blood pressure 102/63 pulse ox 89% on 2 L nasal cannula, white blood count 4.6 hemoglobin 9.8 platelet count 252 PTT 60.2 BUN 5 creatinine 0.56 patient remains on IV heparin. Pulmonary hematology cardiology and thoracic surgery are following. On 06/25/2024 patient has been transferred out of the intensive care unit on stepdown. Patient remains on heparin drip awaiting oncology and pulmonary services recommendation for anticoagulation. Patient feels improved. Patient is alert and oriented x 3. Current vital signs temp 98.2, heart rate 98, respiratory rate 16, blood pressure 95/61 with a pulse ox of 93% on 2 L. Patient denies chest pain. Patient denies nausea vomiting or diarrhea. Patient denies any urinary burning or frequency. On 06/26/2024 patient was seen and examined on the telemetry floor she is alert and oriented x 3 in no apparent distress, she reports improvement in her shortness of breath, she still has mild cough otherwise she denies any complaints there is no fever or chills no headache or dizziness no chest pain no nausea or vomiting no abdominal pain no diarrhea no blood in the stools, no burning with urination no frequency or urgency and no hematuria. At this time pulse oximetry is 87% on 2 L nasal cannula, and liver enzymes are increasing daily, will continue to monitor closely, possible discharge in the next 1 to 2 d ays. Objective - Vital Signs Vital signs: Vital Signs Temp 98.6 F 06/26/24 04:00 Pulse 88 06/26/24 04:00 Resp 15 06/26/24 04:00 BP 106/70 06/26/24 04:00 Pulse Ox 87 L 06/26/24 08:20 FiO2 21 06/26/24 08:20 Intake & Output 06/25/24 06/26/24 06/26/24 18:59 06:59 18:59 Intake Total 0 Output Total 350 Balance -350 0 Weight 77.7 kg Intake: Oral 0 Output: Urine 350 Other: Voiding Method Toilet Toilet - Exam In general patient is alert and oriented x 3 in no distress HEENT head normocephalic and atraumatic Neck is supple no JVD no goiter no lymphadenopathy no carotid bruit Chest examination reveals a scattered crackles bilaterally worse on the left no wheezing Cardiac exam reveals regular heart sounds S1 and S2 no gallops no murmurs Abdomen is soft nontender no organomegaly with normal bowel sounds Extremity exam reveals no edema no cyanosis or clubbing Neurological examination reveals no gross focal deficits - Labs CBC & Chem 7: 06/26/24 07:11 06/26/24 07:11 Labs: Abnormal Lab Results - Last 24 Hours (Table) 06/26/24 06/26/24 Range/Units 07:11 07:11 RBC 3.40 L (3.80-5.40) m/uL Hgb 10.2 L (11.4-16.0) gm/dL Hct 31.5 L (34.0-46.0) % Lymphocytes # 0.7 L (1.0-4.8) k/uL Carbon Dioxide 36 H (22-30) mmol/L AST 130 H (14-36) U/L ALT 141 H (4-34) U/L Alkaline Phosphatase 142 H (38-126) U/L Total Protein 5.7 L (6.3-8.2) g/dL Albumin 3.0 L (3.5-5.0) g/dL Microbiology - Last 24 Hours (Table) 06/20/24 16:28 Blood Culture - Final Blood Assessment and Plan Plan: Acute hypoxic respiratory failure Left lower lobe pneumonia, community-acquired Elevated liver enzymes Acute PE and DVT. Patient does have a family history of blood clots will consult hematology services. Status post thrombectomy. Patient yovany on heparin drip At this time patient was seen and examined Home medications reviewed Pulmonary consultation requested patient has been transferred to the intensive care unit Will continue with IV ceftriaxone and IV Zithromax For DVT prophylaxis subcu Lovenox
--- NOTE | 2024-06-26 14:32 | P.PN ---
Subjective Progress Note Date: 06/26/24 Patient is a 54-year-old white female without any significant past medical history. Her primary care provider is Dr. Roa. Chief complaint is a nonproductive congested cough and associated subjective fevers starting approximately 1 week ago. On Friday, she did go to her primary care provider and diagnosed with pneumonia. She was prescribed an oral antibiotic. Despite treatment, no improvement, and patient came to the emergency department yesterday evening. She was admitted with IV antibiotics in the form of azithromycin and Rocephin. No repeat chest x-ray has yet been performed. She is currently resting comfortably on the medical surgical unit. She is on 3 L/min nasal cannula. She is in no acute respiratory distress. She denies any significant history of chronic pulmonary disease. Does not take any inhalers at home. Denies history of tobacco use. She states that her cough is congested without sputum production. Does have associated left-sided back pain with coughing and deep breathing that developed over same time from. Denies hemoptysis. Denies history of cancer. Denies weight loss. No measured fevers while inpatient. No leukocytosis. Denies nausea, vomiting, diarrhea. She is tolerating oral intake. Also receiving normal saline at 130 mL/h. CBC: WBC count 5, hemoglobin 12.7, hematocrit 37.9, platelets 185. CMP: Sodium 139, potassium 4.4, chloride 103, serum bicarb 28, BUN 16, creatinine 0.77, glucose 106. Lactic 1. AST 74, ALT 108, ALP 171. Current vitals: Temperature 97.9 F, heart rate 93 bpm, blood pressure 99/71, respiratory rate 22 bpm, SpO2 95% on 3 L/min nasal cannula. Nontoxic appearance. On 06/22/2024, the patient is transferred to the intensive care unit. I saw this patient in consultation yesterday. I was not absolutely convinced that the patient had a pneumonia. There was some volume loss and atelectasis in the left lung base in addition to some right perihilar opacity. Based on that, I ordered a CT angiogram of the chest and the findings were quite abnormal. The patient was found to have evidence of bilateral pulmonary embolism and suspected mild RV dilatation. There was also prominent atelectasis in the left lower lobe surrounding minimal groundglass opacity. Immediately, the patient was started on IV heparin. Doppler of the lower extremity was also ordered and the patient was found to have a thrombus in the distal femoral vein on the left. Also, an echocardiogram was obtained this morning and the patient was found to have a preserved LV function with an ejection fraction of 50 to 55%. LV cavity was normal. RV size was normal and there was mild pulmonary hypertension with a PA pressure of 35. Meanwhile, the patient became progressively more hypoxic. Currently is on 15 L of oxygen by nasal cannula with a pulse ox ranging between 94 to 97%. She continues to have chest discomfort and cough and some pleurisy. The white cell count is 4.9, hemoglobin 10.8 and a platelet count of 173. The sodium is at 140, BUN is at 4 with a creatinine of 0.5. Potassium is at 3.3. Troponins are negative. Liver function tests show an alkaline phosphatase of 142, AST and ALT are both normal. Her procalcitonin level was at 0.14. She remains on IV Rocephin. Currently, she is afebrile and she is also hemodynami beatriz stable. No significant tachycardia.. On 06/23/2024, the patient is being seen for a follow-up. The patient is status post clot thrombectomy for massive pulmonary embolism and secondary hypoxemia. The patient felt significant symptomatic relief following the procedure and the patient's oxygenation is also improved. The patient is currently down to 5 L of oxygen by nasal cannula. She remains on IV heparin. Repeat chest x-ray was done this morning and there is some left lower lobe consolidation and small effusions. There is also stable right-sided pulmonary filtrates. The patient i s using the incentive spirometer. The white cell count of 5.2 with a hemoglobin 10.6 and a platelet count of 221. Electrolytes are all within normal limits. The patient is hemodynamically stable. She is still in mild degree of sinus tachycardia. No signs of any respiratory distress and oxygenation is improving and the patient is being gradually weaned off of FiO2. No pleurisy. No other new complaints otherwise for now. On 06/24/2024, the patient is being seen for a follow-up., Comfortable. Continues to have some cough and congestion. Oxygenation has improved and the patient has been weaned down to 2 L of oxygen by nasal cannula. Repeat chest x- ray was done and the patient continues to have stable bilateral basilar infiltrates and effusions. The patient remains on IV heparin. No chest pain. No pleurisy. The patient is using incentive spirometer and she is pulling approximately 1000. IV fluids are still at rate of 130 cc an hour of normal saline. The white cell count of 4.6, hemoglobin 10.8 and platelet count of 252. BUN is 5 creatinine 0.56 and a sodium levels at 138. On 06/25/2024, the patient is feeling well. She is currently on 2 L of oxygen nasal cannula with a pulse ox of 93%. She remains on IV heparin. A follow-up chest x-ray was done and there is interval improvement with a reduction of the pleural fluid and there is some persistent lower lobe consolidation with possibly a small left-sided pleural effusion and left perihilar consolidation. Chest x-ray findings are stable and improved. The white cell count is 6.3 with a hemoglobin 10.3 and a platelet count of 303. BUN is 10 with a creatinine of 0.6 and a sodium levels at 137. The patient is on IV fluids at KVO. Using incentive spirometer. Continues to have episodes of cough especially when taking a deep breath. No other new complaints otherwise for now. On 06/26/2024, the patient remains on 2 L of oxygen by nasal cannula. She is feeling better. Her pulse ox is 94% room air oxygen. Repeat chest x-ray was done and showed atelectatic change in left lung base with possibly a small left- sided pleural effusion. The patient was taken off the IV heparin and the patient is currently on anticoagulation with Eliquis 10 mg p.o. twice a day. IV fluids are KVO. She is using incentive spirometer. Cough is subsided and the patient is trying to increase her level of activity as tolerated. Objective - Vital Signs Vital signs: Vital Signs Temp 98.6 F 06/26/24 04:00 Pulse 88 06/26/24 04:00 Resp 15 06/26/24 04:00 BP 106/70 06/26/24 04:00 Pulse Ox 87 L 06/26/24 08:20 FiO2 21 06/26/24 08:20 Intake & Output 06/25/24 06/26/24 06/26/24 18:59 06:59 18:59 Intake Total 0 Output Total 350 Balance -350 0 Weight 77.7 kg Intake: Oral 0 Output: Urine 350 Other: Voiding Method Toilet Toilet - Exam GENERAL EXAM: Alert, 55-year-old white female, mild respiratory distress and the patient is currently on 2 L of oxygen by nasal cannula HEAD: Normocephalic and atraumatic EYES: Normal reaction of pupils, equal size. NOSE: Clear with pink turbinates. THROAT: No erythema or exudates. NECK: No masses, no JVD. CHEST: No chest wall deformity. LUNGS: Equal air entry with minimal bibasilar crackles, left sided dullness. Diminished breath sound the left lung base CVS: S1 and S2 normal with no audible murmur, regular rhythm. No extra heart sounds ABDOMEN: No hepatosplenomegaly, active bowel sounds, no guarding or rigidity. SPINE: No scoliosis or deformity SKIN: No rashes CENTRAL NERVOUS SYSTEM: No focal deficits, tone is normal in all 4 extremities. EXTREMITIES: There is no peripheral edema, clubbing, or cyanosis. Peripheral pulses are intact. - Labs CBC & Chem 7: 06/26/24 07:11 06/26/24 07:11 Labs: Abnormal Lab Results - Last 24 Hours (Table) 06/26/24 06/26/24 Range/Units 07:11 07:11 RBC 3.40 L (3.80-5.40) m/uL Hgb 10.2 L (11.4-16.0) gm/dL Hct 31.5 L (34.0-46.0) % Lymphocytes # 0.7 L (1.0-4.8) k/uL Carbon Dioxide 36 H (22-30) mmol/L AST 130 H (14-36) U/L ALT 141 H (4-34) U/L Alkaline Phosphatase 142 H (38-126) U/L Total Protein 5.7 L (6.3-8.2) g/dL Albumin 3.0 L (3.5-5.0) g/dL Microbiology - Last 24 Hours (Table) 06/20/24 16:28 Blood Culture - Final Blood Assessment and Plan Assessment: Acute hypoxemic respiratory failure, on 2 L of oxygen by nasal cannula, oxygenation is improved following clot thrombectomy/Inari for massive pulmonary embolism. The patient remains on IV heparin. Using incentive spirometer. Acute bilateral pulmonary embolism, currently on IV heparin. Patient carries a positive family history in her mother has had history of DVT. Troponins are negative. Echocardiogram shows only mild pulm hypertension with an estimated PA pressure of 35. No significant RV dilatation. Nevertheless, the patient has developed significant hypoxemia probably due to pulm embolism and ongoing atelectatic changes in the left lung base. Pneumonia is felt to be less likely. The chest x-ray from today shows improvement in aeration of the lung bases. Improvement in the pleural effusion and the patient has some atelectatic changes specially in the left lung base. Bibasilar atelectatic changes left more than right along with the possibility of development of a left-sided pleural effusion Left femoral DVT confirmed on ultrasound Doppler of the left lower extremity Shortness of breath secondary to above with progressive worsening in the oxygenation, improving post clot thrombectomy. Plan: Ongoing slow clinical improvement and the patient remains on oxygen 2 L/min nasal cannula Keep oxygen at 2 L/min nasal cannula, gradual wean down FiO2 as tolerated to maintain saturation above 90% Continue using incentive spirometer CT of the chest was reviewed. Echocardiogram was reviewed. Troponins are negative. Encouraged use of incentive spirometer Completed a course of IV Rocephin Procalcitonin level is mildly elevated, IV fluids are KVO Anticoagulation with Eliquis Chest x-ray was noted and there is some ongoing atelectatic changes left lung base Increase mobility and activity Will continue to follow.
[2024-06-27 08:15] LABS: Basophils % (A) 1 %; Eosinophils # (A) 0.1 k/uL (0-0.7); Eosinophils % (A) 2 %; HCT 30.7 % (34.0-46.0); Hypochromasia Slight; Lymphocytes # (A) 0.7 k/uL (1.0-4.8); Lymphocytes % (A) 11 %; MCH 30.1 pg (25.0-35.0); MCHC 32.5 g/dL (31.0-37.0); MCV 92.6 fL (80.0-100.0); Mean Platelet Volume 7.4; Monocytes # (A) 0.3 k/uL (0-1.0); Monocytes % (A) 5 %; Neutrophils # (A) 5.1 k/uL (1.3-7.7); Neutrophils % (A) 79 %; Platelet Count 351 k/uL (150-450); RBC 3.32 m/uL (3.80-5.40); WBC 6.4 k/uL (3.8-10.6)
[2024-06-27 08:30] LABS: ALT 126 U/L (4-34); AST 78 U/L (14-36); African American GFR (CKD) >90 (>60 ml/min/1.73 sqM); Alkaline Phosphatase 146 U/L (38-126); Anion Gap 4 mmol/L; Blood Urea Nitrogen 9 mg/dL (7-17); Calcium 8.5 mg/dL (8.4-10.2); Carbon Dioxide 32 mmol/L (22-30); Chloride 103 mmol/L (98-107); Glucose 98 mg/dL (74-99); Non-African American GFR(CKD) >90 (>60 ml/min/1.73 sqM); Potassium 3.6 mmol/L (3.5-5.1); Sodium 139 mmol/L (137-145); Total Bilirubin 0.5 mg/dL (0.2-1.3); Total Protein 5.7 g/dL (6.3-8.2)
--- NOTE | 2024-06-27 09:26 | P.PN ---
Subjective Progress Note Date: 06/27/24 Jayleen Robbins, is a 54-year-old female who presented to [facility] emergency room with a chief complaint of cough and shortness of breath, patient presented to the office for 3 days before with similar symptoms at that time testing for influenza and COVID was negative, she was given an order for a chest x-ray which came back positive for left lower lobe infiltrate, she was given a course of cefdinir 300 mg twice daily p.o., however her condition continued to worsen and she decided to come to emergency room. She was evaluated in the emergency room vital examination on presentation re vealed a temperature of 98.7 pulse 109 respiration 18 blood pressure 93/66 pulse ox 88% on room air Laboratory data revealed a white blood count of 5.0 hemoglobin 12.7 platelet count 185 AST 74 ALT 108 alkaline phosphatase 171, influenza A and B PCR RSV PCR and COVID-19 PCR were all negative Testing in the emergency room revealed, chest x-ray done in the emergency room revealed worsening left lower lobe infiltrate, underlying mass or neoplasm not excluded. Patient was started on IV ceftriaxone and IV Zithromax and oxygen supplements, and was admitted to medical floor, pulmonary consultation was requested On 06/22/2024 patient is alert and oriented x 3. Patient remains in the intensive care unit. Patient was positive for PE and DVT started on heparin drip. Per patient's patient's mother also has history of blood clot will consult hematology services. Patient remains short of breath. Patient denies chest pain. Patient denies nausea vomiting or diarrhea. On 06/23/2024 patient is alert and oriented x 3. Patient underwent thrombectomy with vascular surgery. Patient remains in the ICU. Oxygen is down to 3 L. Patient reports some improvement. Hematology services also consulted due to concerns of family history of blood clots. Patient remains on heparin drip. Current vital signs temp 98.4, heart rate 89, respiratory rate 24, blood pressure 95/60 with a pulse ox of 94% on 3 L. Patient denies chest pain. Patient reports some shortness of breath. Patient denies any urinary burning or frequency. On 06/24/2024, patient was seen and examined in the ICU, she is alert and oriented x 3 in no apparent distress, she reports improvement in cough and shortness of breath, otherwise she denies any complaints there is no fever or chills no headache or dizziness no chest pain no palpitation no nausea or vomiting no abdominal pain no diarrhea no blood in the stools no burning with urination no frequency or urgency and no hematuria. Vital exam reveals a temperature of 98.2 pulse 93 respiration 27 blood pressure 102/63 pulse ox 89% on 2 L nasal cannula, white blood count 4.6 hemoglobin 9.8 platelet count 252 PTT 60.2 BUN 5 creatinine 0.56 patient remains on IV heparin. Pulmonary hematology cardiology and thoracic surgery are following. On 06/25/2024 patient has been transferred out of the intensive care unit on stepdown. Patient remains on heparin drip awaiting oncology and pulmonary services recommendation for anticoagulation. Patient feels improved. Patient is alert and oriented x 3. Current vital signs temp 98.2, heart rate 98, respiratory rate 16, blood pressure 95/61 with a pulse ox of 93% on 2 L. Patient denies chest pain. Patient denies nausea vomiting or diarrhea. Patient denies any urinary burning or frequency. On 06/26/2024 patient was seen and examined on the telemetry floor she is alert and oriented x 3 in no apparent distress, she reports improvement in her shortness of breath, she still has mild cough otherwise she denies any complaints there is no fever or chills no headache or dizziness no chest pain no nausea or vomiting no abdominal pain no diarrhea no blood in the stools, no burning with urination no frequency or urgency and no hematuria. At this time pulse oximetry is 87% on 2 L nasal cannula, and liver enzymes are increasing daily, will continue to monitor closely, possible discharge in the next 1 to 2 d ays. On 06/27/2023 for patient's alert And oriented3. Patient reports some shortness of breath but overall improvement. Patient remains on eliquis.Current vital signs temp 98.6, heart rate 96, respiratory rate 20, blood pressure 91/64 with pulse ox 90% on 2 L. Liver enzymes improving anticipate discharge in the next 24-48 hours Objective - Vital Signs Vital signs: Vital Signs Temp 98.1 F 06/27/24 04:00 Pulse 75 06/27/24 04:00 Resp 16 06/27/24 04:00 BP 89/55 06/27/24 04:00 Pulse Ox 93 L 06/27/24 08:31 FiO2 21 06/26/24 08:20 Intake & Output 06/26/24 06/27/24 06/27/24 18:59 06:59 18:59 Intake Total 120 Output Total 1350 Balance -1230 Weight 77.7 kg Intake: Oral 120 Output: Urine 1350 Other: Voiding Method Toilet Toilet - Exam In general patient is alert and oriented x 3 in no distress HEENT head normocephalic and atraumatic Neck is supple no JVD no goiter no lymphadenopathy no carotid bruit Chest examination reveals a scattered crackles bilaterally worse on the left no wheezing Cardiac exam reveals regular heart sounds S1 and S2 no gallops no murmurs Abdomen is soft nontender no organomegaly with normal bowel sounds Extremity exam reveals no edema no cyanosis or clubbing Neurological examination reveals no gross focal deficits - Labs CBC & Chem 7: 06/27/24 07:03 06/27/24 07:03 Labs: Abnormal Lab Results - Last 24 Hours (Table) 06/27/24 06/27/24 Range/Units 07:03 07:03 RBC 3.32 L (3.80-5.40) m/uL Hgb 10.0 L (11.4-16.0) gm/dL Hct 30.7 L (34.0-46.0) % Lymphocytes # 0.7 L (1.0-4.8) k/uL Carbon Dioxide 32 H (22-30) mmol/L AST 78 H (14-36) U/L ALT 126 H (4-34) U/L Alkaline Phosphatase 146 H (38-126) U/L Total Protein 5.7 L (6.3-8.2) g/dL Albumin 3.0 L (3.5-5.0) g/dL Assessment and Plan Plan: Acute hypoxic respiratory failure Left lower lobe pneumonia, community-acquired Elevated liver enzymes Acute PE and DVT. Patient does have a family history of blood clots will consult hematology services. Status post thrombectomy. Patient yovany on heparin drip At this time patient was seen and examined Home medications reviewed Pulmonary consultation requested patient has been transferred to the intensive care unit Will continue with IV ceftriaxone and IV Zithromax For DVT prophylaxis subcu Lovenox
--- NOTE | 2024-06-27 13:11 | US ---
EXAMINATION TYPE: US chest DATE OF EXAM: 06/27/2024 Exam done portable COMPARISON: NONE CLINICAL INDICATION: Female, 54 years old with history of Markings for thoracentesis by pulmonary sta ff; TECHNIQUE: Grayscale imaging of the chest. Targeted ultrasound of the posterior lower bilateral hari thoraces FINDINGS: EXAM MEASUREMENTS: Right Pleural Effusion pocket size: 0 cm Left Pleural Effusion pocket size: 1.0 cm Left skin surface to fluid distance: 2.3 cm Right side NOT MARKED for possible thoracentesis outside the dept. Left side NOT MARKED for possible thoracentesis outside the dept. Pulmonologists are able to review the images in the patient?s EMR. IMPRESSIONS: Minimal left pleural fluid. No significant right pleural effusion. [facility], , 06/27/2024 1:08 PM
--- NOTE | 2024-06-27 13:38 | P.PN ---
Subjective Progress Note Date: 06/27/24 Patient is a 54-year-old white female without any significant past medical history. Her primary care provider is Dr. Roa. Chief complaint is a nonproductive congested cough and associated subjective fevers starting approximately 1 week ago. On Friday, she did go to her primary care provider and diagnosed with pneumonia. She was prescribed an oral antibiotic. Despite treatment, no improvement, and patient came to the emergency department yesterday evening. She was admitted with IV antibiotics in the form of azithromycin and Rocephin. No repeat chest x-ray has yet been performed. She is currently resting comfortably on the medical surgical unit. She is on 3 L/min nasal cannula. She is in no acute respiratory distress. She denies any significant history of chronic pulmonary disease. Does not take any inhalers at home. Denies history of tobacco use. She states that her cough is congested without sputum production. Does have associated left-sided back pain with coughing and deep breathing that developed over same time from. Denies hemoptysis. Denies history of cancer. Denies weight loss. No measured fevers while inpatient. No leukocytosis. Denies nausea, vomiting, diarrhea. She is tolerating oral intake. Also receiving normal saline at 130 mL/h. CBC: WBC count 5, hemoglobin 12.7, hematocrit 37.9, platelets 185. CMP: Sodium 139, potassium 4.4, chloride 103, serum bicarb 28, BUN 16, creatinine 0.77, glucose 106. Lactic 1. AST 74, ALT 108, ALP 171. Current vitals: Temperature 97.9 F, heart rate 93 bpm, blood pressure 99/71, respiratory rate 22 bpm, SpO2 95% on 3 L/min nasal cannula. Nontoxic appearance. On 06/22/2024, the patient is transferred to the intensive care unit. I saw this patient in consultation yesterday. I was not absolutely convinced that the patient had a pneumonia. There was some volume loss and atelectasis in the left lung base in addition to some right perihilar opacity. Based on that, I ordered a CT angiogram of the chest and the findings were quite abnormal. The patient was found to have evidence of bilateral pulmonary embolism and suspected mild RV dilatation. There was also prominent atelectasis in the left lower lobe surrounding minimal groundglass opacity. Immediately, the patient was started on IV heparin. Doppler of the lower extremity was also ordered and the patient was found to have a thrombus in the distal femoral vein on the left. Also, an echocardiogram was obtained this morning and the patient was found to have a preserved LV function with an ejection fraction of 50 to 55%. LV cavity was normal. RV size was normal and there was mild pulmonary hypertension with a PA pressure of 35. Meanwhile, the patient became progressively more hypoxic. Currently is on 15 L of oxygen by nasal cannula with a pulse ox ranging between 94 to 97%. She continues to have chest discomfort and cough and some pleurisy. The white cell count is 4.9, hemoglobin 10.8 and a platelet count of 173. The sodium is at 140, BUN is at 4 with a creatinine of 0.5. Potassium is at 3.3. Troponins are negative. Liver function tests show an alkaline phosphatase of 142, AST and ALT are both normal. Her procalcitonin level was at 0.14. She remains on IV Rocephin. Currently, she is afebrile and she is also hemodynami beatriz stable. No significant tachycardia.. On 06/23/2024, the patient is being seen for a follow-up. The patient is status post clot thrombectomy for massive pulmonary embolism and secondary hypoxemia. The patient felt significant symptomatic relief following the procedure and the patient's oxygenation is also improved. The patient is currently down to 5 L of oxygen by nasal cannula. She remains on IV heparin. Repeat chest x-ray was done this morning and there is some left lower lobe consolidation and small effusions. There is also stable right-sided pulmonary filtrates. The patient i s using the incentive spirometer. The white cell count of 5.2 with a hemoglobin 10.6 and a platelet count of 221. Electrolytes are all within normal limits. The patient is hemodynamically stable. She is still in mild degree of sinus tachycardia. No signs of any respiratory distress and oxygenation is improving and the patient is being gradually weaned off of FiO2. No pleurisy. No other new complaints otherwise for now. On 06/24/2024, the patient is being seen for a follow-up., Comfortable. Continues to have some cough and congestion. Oxygenation has improved and the patient has been weaned down to 2 L of oxygen by nasal cannula. Repeat chest x- ray was done and the patient continues to have stable bilateral basilar infiltrates and effusions. The patient remains on IV heparin. No chest pain. No pleurisy. The patient is using incentive spirometer and she is pulling approximately 1000. IV fluids are still at rate of 130 cc an hour of normal saline. The white cell count of 4.6, hemoglobin 10.8 and platelet count of 252. BUN is 5 creatinine 0.56 and a sodium levels at 138. On 06/25/2024, the patient is feeling well. She is currently on 2 L of oxygen nasal cannula with a pulse ox of 93%. She remains on IV heparin. A follow-up chest x-ray was done and there is interval improvement with a reduction of the pleural fluid and there is some persistent lower lobe consolidation with possibly a small left-sided pleural effusion and left perihilar consolidation. Chest x-ray findings are stable and improved. The white cell count is 6.3 with a hemoglobin 10.3 and a platelet count of 303. BUN is 10 with a creatinine of 0.6 and a sodium levels at 137. The patient is on IV fluids at KVO. Using incentive spirometer. Continues to have episodes of cough especially when taking a deep breath. No other new complaints otherwise for now. On 06/26/2024, the patient remains on 2 L of oxygen by nasal cannula. She is feeling better. Her pulse ox is 94% room air oxygen. Repeat chest x-ray was done and showed atelectatic change in left lung base with possibly a small left- sided pleural effusion. The patient was taken off the IV heparin and the patient is currently on anticoagulation with Eliquis 10 mg p.o. twice a day. IV fluids are KVO. She is using incentive spirometer. Cough is subsided and the patient is trying to increase her level of activity as tolerated. On 06/27/2024, the patient is being seen for a follow-up. She remains on 2 L of oxygen by nasal cannula. She continues to have diminished breath sounds left lung base. Concern for pleural effusion versus atelectasis and based on that an ultrasound of the chest was ordered. She remains on anticoagulation with Eliquis. No new complaints otherwise for now. She is trying to increase her l evel of activity as tolerated. She will likely need home O2.The blood work showed a white cell count of 6.4 with a hemoglobin of 10 and a platelet count of 351. BUN is at primary 0.6 and a Sodium Levels at 139 and Potassium Less Than 3.6. LFTs Were Mildly Elevated Today Are Essentially Improving and the AST Is down to 78 with an Alkaline Phosphatase of 146 and a ALT of 126. Objective - Vital Signs Vital signs: Vital Signs Temp 98.1 F 06/27/24 08:15 Pulse 90 06/27/24 08:15 Resp 16 06/27/24 08:15 BP 92/54 06/27/24 08:15 Pulse Ox 93 L 06/27/24 08:31 FiO2 21 06/26/24 08:20 Intake & Output 06/26/24 06/27/24 06/27/24 18:59 06:59 18:59 Intake Total 120 0 Output Total 1350 Balance -1230 0 Weight 77.7 kg Intake: Oral 120 0 Output: Urine 1350 Other: Voiding Method Toilet Toilet Toilet - Exam GENERAL EXAM: Alert, 55-year-old white female, mild respiratory distress and the patient is currently on 2 L of oxygen by nasal cannula HEAD: Normocephalic and atraumatic EYES: Normal reaction of pupils, equal size. NOSE: Clear with pink turbinates. THROAT: No erythema or exudates. NECK: No masses, no JVD. CHEST: No chest wall deformity. LUNGS: Equal air entry with minimal bibasilar crackles, left sided dullness. Diminished breath sound the left lung base CVS: S1 and S2 normal with no audible murmur, regular rhythm. No extra heart sounds ABDOMEN: No hepatosplenomegaly, active bowel sounds, no guarding or rigidity. SPINE: No scoliosis or deformity SKIN: No rashes CENTRAL NERVOUS SYSTEM: No focal deficits, tone is normal in all 4 extremities. EXTREMITIES: There is no peripheral edema, clubbing, or cyanosis. Peripheral pulses are intact. - Labs CBC & Chem 7: 06/27/24 07:03 06/27/24 07:03 Labs: Abnormal Lab Results - Last 24 Hours (Table) 06/27/24 06/27/24 Range/Units 07:03 07:03 RBC 3.32 L (3.80-5.40) m/uL Hgb 10.0 L (11.4-16.0) gm/dL Hct 30.7 L (34.0-46.0) % Lymphocytes # 0.7 L (1.0-4.8) k/uL Carbon Dioxide 32 H (22-30) mmol/L AST 78 H (14-36) U/L ALT 126 H (4-34) U/L Alkaline Phosphatase 146 H (38-126) U/L Total Protein 5.7 L (6.3-8.2) g/dL Albumin 3.0 L (3.5-5.0) g/dL Assessment and Plan Assessment: Acute hypoxemic respiratory failure, on 2 L of oxygen by nasal cannula, oxygenation is improved following clot thrombectomy/Inari for massive pulmonary embolism. The patient remains on IV heparin. Using incentive spirometer. Acute bilateral pulmonary embolism, currently on IV heparin. Patient carries a positive family history in her mother has had history of DVT. Troponins are negative. Echocardiogram shows only mild pulm hypertension with an estimated PA pressure of 35. No significant RV dilatation. Nevertheless, the patient has developed significant hypoxemia probably due to pulm embolism and ongoing atelectatic changes in the left lung base. Pneumonia is felt to be less likely. The chest x-ray from today shows improvement in aeration of the lung bases. Improvement in the pleural effusion and the patient has some atelectatic changes specially in the left lung base. Bibasilar atelectatic changes left more than right along with the possibility of development of a left-sided pleural effusion Left femoral DVT confirmed on ultrasound Doppler of the left lower extremity Shortness of breath secondary to above with progressive worsening in the oxygenation, improving post clot thrombectomy. Plan: Ongoing slow clinical improvement and the patient remains on oxygen 2 L/min nasal cannula Obtain ultrasound the chest to rule out any pleural effusion versus atelectasis of the lung bases as the patient is quite diminished breath sounds specially in the left lung base. Keep oxygen at 2 L/min nasal cannula, gradual wean down FiO2 as tolerated to maintain saturation above 90% Continue using incentive spirometer CT of the chest was reviewed. Echocardiogram was reviewed. Troponins are n egative. Encouraged use of incentive spirometer Complete antibiotics and the patient's procalcitonin level was not elevated IV fluids are KVO Anticoagulation with Eliquis Chest x-ray was noted and there is some ongoing atelectatic changes left lung base Increase mobility and activity Monitor LFTs Will continue to follow.
[2024-06-28 07:18] LABS: Basophils % (A) 1 %; Eosinophils # (A) 0.1 k/uL (0-0.7); Eosinophils % (A) 2 %; HCT 30.6 % (34.0-46.0); HGB 10.3 gm/dL (11.4-16.0); Lymphocytes # (A) 0.7 k/uL (1.0-4.8); Lymphocytes % (A) 11 %; MCH 30.7 pg (25.0-35.0); MCHC 33.6 g/dL (31.0-37.0); MCV 91.4 fL (80.0-100.0); Mean Platelet Volume 7.8; Monocytes # (A) 0.3 k/uL (0-1.0); Monocytes % (A) 5 %; Neutrophils % (A) 78 %; Platelet Count 375 k/uL (150-450); RBC 3.35 m/uL (3.80-5.40); RDW 13.2 % (11.5-15.5); WBC 6.5 k/uL (3.8-10.6)
[2024-06-28 07:27] LABS: ALT 102 U/L (4-34); AST 45 U/L (14-36); African American GFR (CKD) >90 (>60 ml/min/1.73 sqM); Albumin 3.1 g/dL (3.5-5.0); Alkaline Phosphatase 154 U/L (38-126); Anion Gap -1 mmol/L; Blood Urea Nitrogen 11 mg/dL (7-17); Calcium 8.5 mg/dL (8.4-10.2); Carbon Dioxide 33 mmol/L (22-30); Chloride 106 mmol/L (98-107); Glucose 95 mg/dL (74-99); Non-African American GFR(CKD) >90 (>60 ml/min/1.73 sqM); Sodium 138 mmol/L (137-145); Total Bilirubin 0.5 mg/dL (0.2-1.3); Total Protein 5.8 g/dL (6.3-8.2)
[2024-06-28 09:40] VITALS: TEMP 98.3
--- NOTE | 2024-06-28 13:10 | P.PN ---
Subjective Progress Note Date: 06/28/24 The patient is seen today June 28, 2024 in follow-up on the regular medical floor. She is status post thrombectomy for massive pulmonary embolism with secondary hypoxemia. She is currently sitting up in a chair at the bedside. Awake and alert in no acute distress. She is maintaining good O2 saturations in the 90s on room air. She has been transitioned to Eliquis. No worsening shortness of breath cough or congestion. No hemoptysis. No chest pain. Ultrasound of the chest revealed no significant pleural effusion. No need for thoracentesis. Blood cultures revealed no growth. White count 6.5. Hemoglobin 10.3. Platelets 375. Sodium 138. Potassium 4.0. Bicarb 33. BUN 11. Creatinine 0.65. Glucose 95. AST 45. ALT 102. Alk phos 154. Objective - Vital Signs Vital signs: Vital Signs Temp 98.3 F 06/28/24 08:10 Pulse 88 06/28/24 12:00 Resp 18 06/28/24 12:00 BP 93/61 06/28/24 12:00 Pulse Ox 93 L 06/28/24 12:00 FiO2 21 06/26/24 08:20 Intake & Output 06/27/24 06/28/24 06/28/24 18:59 06:59 18:59 Intake Total 0 118 Output Total 1500 1700 Balance -1500 -1582 Weight 77.1 kg Intake: Oral 0 118 Output: Urine 1500 1700 Other: Voiding Method Toilet Toilet Toilet - Exam GENERAL EXAM: Alert, active, pleasant 54-year-old female, up in a chair, on room air, comfortable in no apparent distress. HEAD: Normocephalic. EYES: Normal reaction of pupils, equal size. NOSE: Clear with pink turbinates. THROAT: No erythema or exudates. NECK: No masses, no JVD. CHEST: No chest wall deformity. LUNGS: Equal air entry with no crackles, wheeze, rhonchi or dullness. CVS: S1 and S2 normal with no audible murmur, regular rhythm. ABDOMEN: No hepatosplenomegaly, normal bowel sounds, no guarding or rigidity. SPINE: No scoliosis or deformity SKIN: No rashes CENTRAL NERVOUS SYSTEM: No focal deficits, tone is normal in all 4 extremities. EXTREMITIES: There is no peripheral edema. No clubbing, no cyanosis. Peripheral pulses are intact. - Labs CBC & Chem 7: 06/28/24 06:32 06/28/24 06:32 Labs: Abnormal Lab Results - Last 24 Hours (Table) 06/28/24 06/28/24 Range/Units 06:32 06:32 RBC 3.35 L (3.80-5.40) m/uL Hgb 10.3 L (11.4-16.0) gm/dL Hct 30.6 L (34.0-46.0) % Lymphocytes # 0.7 L (1.0-4.8) k/uL Carbon Dioxide 33 H (22-30) mmol/L AST 45 H (14-36) U/L ALT 102 H (4-34) U/L Alkaline Phosphatase 154 H (38-126) U/L Total Protein 5.8 L (6.3-8.2) g/dL Albumin 3.1 L (3.5-5.0) g/dL Assessment and Plan Assessment: Acute hypoxemic respiratory failure, recovered and on room air, oxygenation is improved following clot thrombectomy/Inari for massive pulmonary embolism. Transitioned to Eliquis, using incentive spirometer. Acute bilateral pulmonary embolism, initially on IV heparin. Patient carries a positive family history in her mother has had history of DVT. Troponins are negative. Echocardiogram shows only mild pulm hypertension with an estimated PA pressure of 35. No significant RV dilatation. Nevertheless, the patient has developed significant hypoxemia probably due to pulm embolism and ongoing atelectatic changes in the left lung base. The chest x-ray from today shows improvement in aeration of the lung bases. Improvement in the pleural effusion and the patient has some atelectatic changes specially in the left lung base. Bibasilar atelectatic changes left more than right along with the possibility of development of a left-sided pleural effusion. Ultrasound of the chest revealed no significant effusions Left femoral DVT confirmed on ultrasound Doppler of the left lower extremity Shortness of breath secondary to above with progressive worsening in the oxygenation, improving post clot thrombectomy. Plan: The patient was seen and evaluated Chest ultrasound, labs and medications reviewed No significant pleural effusion, no plans for thoracentesis Stable and on room air, does not require home oxygen Transitioned to Eliquis Cleared for discharge Follow-up in our office in 1 week This patient was seen independently by the pulmonary nurse practitioner addressing pulmonary issues I have personally seen and examined the patient, performed the documentation and the assessment and plan as written. Number of minutes spent on the visit: 24 Dictation was produced using [employer] dictation software. Please excuse any grammatical, word or spelling errors.
[2024-06-28 15:49] VITALS: BP 95/61; PULSE 99; RESP 17
--- NOTE | 2024-06-28 17:42 | P.DS ---
Providers Date of admission: 06/22/24 09:04 Expected date of discharge: 06/28/24 Attending physician: Sherita Roa Consults: 06/20/24 17:31 Consult Physician Urgent Consulting Provider: Royal Gonzales Consult Reason/Comments: hypoxic resp failure, CAP Do you want consulting provider notified?: Yes 06/22/24 10:39 Consult Physician Routine Consulting Provider: Jason Campos Consult Reason/Comments: PE/DVT family history of blood clots Do you want consulting provider notified?: Yes 06/26/24 08:45 Consult Physician Routine Consulting Provider: Deidra Randall Consult Reason/Comments: elevated liver enzymes Do you want consulting provider notified?: Yes Primary care physician: Sherita Crispin [facility] Course: Diagnosis on discharge: Acute hypoxic respiratory failure Left lower lobe pneumonia, community-acquired Elevated liver enzymes Acute PE and DVT. Patient does have a family history of blood clots will consult hematology services. Status post thrombectomy. Patient was maintained on on heparin drip, then switched to Eliquis. Hospital course: Jayleen Robbins, is a 54-year-old female who presented to [facility] emergency room with a chief complaint of cough and shortness of breath, patient presented to the office for 3 days before with similar symptoms at that time testing for influenza and COVID was negative, she was given an order for a chest x-ray which came back positive for left lower lobe infiltrate, she was given a course of cefdinir 300 mg twice daily p.o., however her condition continued to worsen and she decided to come to emergency room. She was evaluated in the emergency room vital examination on presentation revealed a temperature of 98.7 pulse 109 respiration 18 blood pressure 93/66 pulse ox 88% on room air Laboratory data revealed a white blood count of 5.0 hemoglobin 12.7 platelet count 185 AST 74 ALT 108 alkaline phosphatase 171, influenza A and B PCR RSV PCR and COVID-19 PCR were all negative Testing in the emergency room revealed, chest x-ray done in the emergency room revealed worsening left lower lobe infiltrate, underlying mass or neoplasm not excluded. Patient was started on IV ceftriaxone and IV Zithromax and oxygen supplements, and was admitted to medical floor, pulmonary consultation was requested On 06/22/2024 patient is alert and oriented x 3. Patient remains in the intensive care unit. Patient was positive for PE and DVT started on heparin drip. Per patient's patient's mother also has history of blood clot will consult hematology services. Patient remains short of breath. Patient denies chest pain. Patient denies nausea vomiting or diarrhea. On 06/23/2024 patient is alert and oriented x 3. Patient underwent thrombectomy with vascular surgery. Patient remains in the ICU. Oxygen is down to 3 L. Patient reports some improvement. Hematology services also consulted due to concerns of family history of blood clots. Patient remains on heparin drip. Current vital signs temp 98.4, heart rate 89, respiratory rate 24, blood pressure 95/60 with a pulse ox of 94% on 3 L. Patient denies chest pain. Patient reports some shortness of breath. Patient denies any urinary burning or frequency. On 06/24/2024, patient was seen and examined in the ICU, she is alert and oriented x 3 in no apparent distress, she reports improvement in cough and shortness of breath, otherwise she denies any complaints there is no fever or chills no headache or dizziness no chest pain no palpitation no nausea or vomiting no abdominal pain no diarrhea no blood in the stools no burning with urination no frequency or urgency and no hematuria. Vital exam reveals a temperature of 98.2 pulse 93 respiration 27 blood pressure 102/63 pulse ox 89% on 2 L nasal cannula, white blood count 4.6 hemoglobin 9.8 platelet count 252 PTT 60.2 BUN 5 creatinine 0.56 patient remains on IV heparin. Pulmonary hematology cardiology and thoracic surgery are following. On 06/25/2024 patient has been transferred out of the intensive care unit on stepdown. Patient remains on heparin drip awaiting oncology and pulmonary services recommendation for anticoagulation. Patient feels improved. Patient is alert and oriented x 3. Current vital signs temp 98.2, heart rate 98, respiratory rate 16, blood pressure 95/61 with a pulse ox of 93% on 2 L. Patient denies chest pain. Patient denies nausea vomiting or diarrhea. Patient denies any urinary burning or frequency. On 06/26/2024 patient was seen and examined on the telemetry floor she is alert and oriented x 3 in no apparent distress, she reports improvement in her shortness of breath, she still has mild cough otherwise she denies any complaints there is no fever or chills no headache or dizziness no chest pain no nausea or vomiting no abdominal pain no diarrhea no blood in the stools, no burning with urination no frequency or urgency and no hematuria. At this time pulse oximetry is 87% on 2 L nasal cannula, and liver enzymes are increasing daily, will continue to monitor closely, possible discharge in the next 1 to 2 days. On 06/27/2023 for patient's alert And oriented3. Patient reports some shortness of breath but overall improvement. Patient remains on eliquis.Current vital signs temp 98.6, heart rate 96, respiratory rate 20, blood pressure 91/64 with pulse ox 90% on 2 L. Liver enzymes improving anticipate discharge in the next 24-48 hours. On 06/28/2024 patient was seen and examined on the medical floor she is alert and oriented x 3 in no apparent distress there is no fever or chills no headache or dizziness no chest pain no shortness of breath no cough no nausea or vomiting no abdominal pain no diarrhea no urinary symptoms. Pulse ox was 93% on room air, patient was evaluated by pulmonary and was cleared for discharge. A prescription for Eliquis 10 mg twice daily for 5 more days and then 5 mg twice daily was sent to [facility] pharmacy follow-up in the office in the next 2 to 3 days. Patient Condition at Discharge: Stable Plan - Discharge Summary Discharge Rx Participant: No New Discharge Prescriptions: Continue guaiFENesin SYRUP 100MG/5ML [Robitussin] 200 mg PO Q6H PRN PRN Reason: Cough Discontinued Cefdinir [Omnicef] 300 mg PO Q12HR Discharge Medication List guaiFENesin SYRUP 100MG/5ML [Robitussin] 200 mg PO Q6H PRN 06/20/24 [History] Follow up Appointment(s)/Referral(s): Jacob Mason DO [STAFF PHYSICIAN] - 07/06/24 2:00 pm Sherita Roa MD [Primary Care Provider] - 1-2 days (call to make follow up appointment) Patient Instructions/Handouts: Pulmonary Embolism (DC), Deep Vein Thrombosis (DC) Discharge Disposition: HOME SELF-CARE
== END 2024-06-28 17:14 | disposition home or self-care (01) | DRG 163 ==
LOC: EC 15:19 → 4SSUR 17:31 → 2SICU 06-21 23:22 → OBSVTOIN 06-22 09:04 → 3SCARD 06-24 14:18
PROVIDERS: ADMIT Internal Medicine; ATTEND Internal Medicine
PROC: 02CQ3ZZ Extirpation of Matter from Right Pulmonary Artery, Percutaneous Approach (ICD-10-PCS; principal; 2024-06-22 17:00)
PROC: B31T1ZZ Fluoroscopy of Left Pulmonary Artery using Low Osmolar Contrast (ICD-10-PCS; principal; 2024-06-22 17:00)
PROC: 02CR3ZZ Extirpation of Matter from Left Pulmonary Artery, Percutaneous Approach (ICD-10-PCS; principal; 2024-06-22 17:00)
PROC: B31S1ZZ Fluoroscopy of Right Pulmonary Artery using Low Osmolar Contrast (ICD-10-PCS; principal; 2024-06-22 17:00)
PROC: 02CP3ZZ Extirpation of Matter from Pulmonary Trunk, Percutaneous Approach (ICD-10-PCS; principal; 2024-06-22 17:00)
PROC: B54BZZA Ultrasonography of Right Lower Extremity Veins, Guidance (ICD-10-PCS; 2024-06-22 17:00)
DX: J96.01 Acute respiratory failure with hypoxia (principal); I26.09 Other pulmonary embolism with acute cor pulmonale; J18.9 Pneumonia, unspecified organism; I82.412 Acute embolism and thrombosis of left femoral vein; J98.11 Atelectasis; R74.01 Elevation of levels of liver transaminase levels; Z11.52 Encounter for screening for COVID-19; I27.20 Pulmonary hypertension, unspecified; K80.20 Calculus of gallbladder without cholecystitis without obstruction; Z79.01 Long term (current) use of anticoagulants; Z86.711 Personal history of pulmonary embolism; Z86.718 Personal history of other venous thrombosis and embolism
CPT/HCPCS: 36415; 37184; 37185; 71045; 71260; 75743; 76604; 76705; 80048; 80053; 83605; 83735; 84132; 84145; 84484; 85025; 85598; 85610; 85613; 85730; 85732; 86146; 86147; 87040; 87449; 87636; 93005; 93306; 93970; 94640; 94760; 96365; 96367; 99285

== ENCOUNTER → 2024-11-25 | Outpatient (CLI) | payer OTHER ==
--- NOTE | 2024-11-25 16:37 | US ---
EXAMINATION TYPE: US pelvis complete transvag DATE OF EXAM: 11/25/2024 COMPARISON: NONE CLINICAL INDICATION: Female, 54 years old with history of N92.1 EXCESSIVE AND FREQUENT MENSTRUATION W ITH IRR; pt recently got on blood thinners, pt was experiencing light spotting x 4 days, pt is post m enopausal, spotting is now gone TECHNIQUE: Transvaginal (TV) and Transabdominal (TA) . Transabdominal grayscale sonographic images of the pelvis were acquired. Transvaginal sonographic im ages were medically necessary to better assess the following anatomy: Doppler imaging: Color Doppler Images were obtained. Spectral doppler images were obtained. FINDINGS: EXAM MEASUREMENTS: Uterus: 10.1x3.5x5.6 cm Endometrial Stripe: 0.8 cm Unable to confidently detect which ovary is seen, pt had a hx of an ectopic and had an ooph orectomy several years ago, pt is unable to confidently state which ovary was removed 1. Uterus: Anteverted heterogenous appearing, slightly limited visualization due to bladder contin uing to fill after just voiding prior to exam, obstructed by bowel as well CX: anechoic areas seen with calcifications seen within 2. Endometrium: wnl ? Rt vs Lt ovary: due to UT placement & overlying bowel/gas, unable to confidently detect which ovar y measurin.4x1.2x1.1cm Spectral, color and waveform doppler imaging shows good arterial and venous flow within the ovaries ; there is no evidence for ovarian torsion. 5. Bilateral Adnexa: wnl 6. Posterior cul-de-sac: ?possible small amount of FF seen IMPRESSION: 1. Heterogenous uterine myometrium which could reflect small leiomyomatous change. 2. Small amount of free fluid. O-RADS 2021 [email or web address] [facility], , 11/25/2024 4:35 PM
== END | disposition home or self-care (01) ==
LOC: RADUSWWP 14:59
PROVIDERS: ATTEND Internal Medicine
DX: N92.1 Excessive and frequent menstruation with irregular cycle (principal); N85.8 Other specified noninflammatory disorders of uterus
CPT/HCPCS: 76830; 76856

== ENCOUNTER → 2024-12-13 | Outpatient (CLI) | payer OTHER ==
--- NOTE | 2024-12-13 15:20 | XR ---
EXAMINATION TYPE: XR shoulder complete 3 views RT, XR foot complete 3 views LT DATE OF EXAM: 12/13/2024 3:14 PM COMPARISON: None CLINICAL INDICATION: Female, 54 years old with history of RIGHT SHOULDER PAIN; PHH, left foot pain FINDINGS: Right shoulder: Mild degenerative joint space narrowing at the AC joint. Subacromial space is preserved. Some irregul arity of the greater tuberosity. Incidental small and bone island within the humeral head. No acute f racture, subluxation, dislocation. Left foot: Mild early bony bunion noted. Tiny type I accessory navicular. Small posterior and plantar heel spurs . Subtalar joint alignment. No acute fracture, subluxation, dislocation seen. Some soft tissue swelli ng along the medial aspect of the first MTP joint. IMPRESSION: 1. Right shoulder: Minimal AC joint OA and some subtle bony changes which may reflect chronic rotator cuff tendinopathy. No acute osseous abnormalities seen. 2. Left foot: There is some soft tissue swelling overlying the medial aspect of the first MTP joint, possible bunion. Clinically correlate. No acute osseous abnormality seen. [facility], Workstation: [id number], 12/13/2024 3:18 PM
== END | disposition home or self-care (01) ==
LOC: RADXRMAIN 14:53
PROVIDERS: ATTEND Internal Medicine
DX: M19.011 Primary osteoarthritis, right shoulder (principal); M79.672 Pain in left foot

== ENCOUNTER → 2025-01-10 | Outpatient (CLI) | payer OTHER ==
--- NOTE | 2025-01-10 10:13 | MM ---
Reason for Exam: Screening (asymptomatic). Last mammogram was performed 1 year(s) and 1 month(s) ago. Patient History: Menarche at age 14. First Full-Term at age 32. Late child-bearing (after 32). Left ovary removed at age 34. Postmenopausal. Patient has history of breast feeding. Hormonal Contraceptives for 1 year from age 22 until age 23. Risk Values: Lala 5 year model risk: 1.5%. NCI Lifetime model risk: 11.8%. Prior Study Comparison: 12/17/2021 Bilateral MG screening mammo w CAD, [facility]. 12/25/2021 Right MG 3D work up w/cad RT, [facility]. 12/25/2023 Bilateral MG 3D screening mammo w/cad, [facility]. Tissue Density: There are scattered areas of fibroglandular density. Findings: Analyzed By CAD. Chronic nodularity right breast. There is no suspicious group of microcalcifications or new suspicious mass in either breast. Overall Assessment: Benign, BI-RAD 2 Management: Screening Mammogram of both breasts in 1 year. Patient should continue monthly self-breast exams. A clinical breast exam by your physician is recommended on an annual basis. This exam should not preclude additional follow-up of suspicious palpable abnormalities. Note on Lala scores and lifetime risk: 1. A Lala score greater than 3% is considered moderate risk. If this is the case, consider specialist referral to assess eligibility for a risk reducing agent. 2. If overall lifetime risk for the development of breast cancer is 20% or higher, the patient may qualify for future screening with alternating mammogram and breast MRI. [facility], , 01/10/2025 10:10 AM. Electronically signed and approved by: Ran Hannon M.D. Radiologist
== END | disposition home or self-care (01) ==
LOC: RADMAMWWP 09:26
PROVIDERS: ATTEND Internal Medicine
DX: Z12.31 Encounter for screening mammogram for malignant neoplasm of breast (principal); R92.323 Mammographic fibroglandular density, bilateral breasts; Z78.0 Asymptomatic menopausal state; Z92.0 Personal history of contraception
CPT/HCPCS: 77063; 77067

== ENCOUNTER → 2025-01-18 | Outpatient (CLI) | payer OTHER ==
[2025-01-18 19:17] LABS: Alternaria alternata IgE <0.10 kU/L; Aspergillus fumagatus IgE <0.10 kU/L; Birch IgE <0.10 kU/L; Cat Epith & Dander IgE 0.24 kU/L; Cladosporian herbarum IgE <0.10 kU/L; Cockroach IgE <0.10 kU/L; Dermato. farinae IgE <0.10 kU/L; Dog Dander IgE <0.10 kU/L; Elm IgE <0.10 kU/L; Maple (Box Elder) IgE 0.23 kU/L; Oak IgE <0.10 kU/L; Ragweed,Common IgE 0.52 kU/L; Red Top (Bentgrass) IgE 0.62 kU/L
== END | disposition home or self-care (01) ==
LOC: LABWHC1 09:41
PROVIDERS: ATTEND Internal Medicine
DX: J45.909 Unspecified asthma, uncomplicated (principal)
CPT/HCPCS: 36415; 82785; 85008; 86003